=== PATIENT | female | born 1965 | race Caucasian/White ===

== ENCOUNTER → 2016-05-05 | Outpatient (REF) | payer OTHER ==
[~2016-05-05] MED LIST: ATOR40TA PO; CETI10TA PO; COLA50CA3 PO; IBUP200C PO; IBUP200T2 PO; PERCOCET OR; PLAV75TA38 PO; TYLE325T5 PO; VITA200016 PO; augmentin PO; colace OR; colace PO; diflucan PO; flagyl PO; tylenol PO
== END ==
LOC: M SFHCWAGY 13:23
PROVIDERS: ATTEND Nurse Practitioner Family
DX: R35.0 Frequency of micturition (principal)

== ENCOUNTER → 2016-05-26 | Outpatient (CLI) | payer OTHER ==
--- NOTE | 2016-05-26 09:04 | REP ---
Clinical: Right upper quadrant abdominal pain. Technique: Steele scale ultrasound using curved array transducer. Findings: The liver and pancreas are normal in contour, size, and echogenicity without focal hepatic or pancreatic lesions identified. The gallbladder is normal without gallstones, wall thickening or pericholecystic fluid. No biliary ductal dilatation is appreciated. The right kidney is normal in reniform shape without hydronephrosis and measures 10.6 x 5.1 x 4.5 cm with 7 mm and 10 mm simple cortical cysts noted. No ascites. Impression: Normal right upper quadrant and gallbladder abdominal ultrasound. Signed by Mason Gage MD 05/26/2016 08:55 A
== END ==
LOC: M RAD 07:31
PROVIDERS: ATTEND Nurse Practitioner Adult Health
DX: R10.11 Right upper quadrant pain (principal)

== ENCOUNTER → 2016-06-06 | Outpatient (REF) | payer OTHER ==
[2016-06-06 12:11] LABS: BASO % 0.5 % (0.0-1.0); EOS # 0.1 K/mm3 (0.0-0.50); EOS % 0.8 % (0.0-3.0); LARGE UNSTAINED CELL # 0.1 K/mm3 (0.0-0.4); LARGE UNSTAINED CELL % 1.6 % (0.0-4.0); LYMPH # 2.6 K/mm3 (1.5-4.5); MEAN CORPUSCULAR HEMOGLOBIN 30.6 pg (27.0-33.0); MEAN CORPUSCULAR VOLUME 90.2 fl (80.0-96.0); MONO # 0.3 K/mm3 (0.0-0.8); MONO % 4.1 % (0.0-5.0); NEUTROPHILS # 5.1 K/mm3 (1.8-7.7); NEUTROPHILS % 62.1 % (36.0-66.0); PLATELET COUNT, AUTOMATED 276 k/mm3 (150-450); RED CELL DISTRIBUTION WIDTH 12.2 % (11.5-14.5); WHITE BLOOD COUNT 8.2 K/mm3 (4.0-10.0)
[2016-06-06 12:33] LABS: ALBUMIN 3.8 GM/DL (3.2-5.2); ALBUMIN/GLOBULIN RATIO 1.36 (1.00-1.93); ALKALINE PHOSPHATASE 62 U/L (45-117); ALT/SGPT 22 U/L (12-78); ANION GAP 7 MEQ/L (8-16); AST/SGOT 16 U/L (15-37); BILIRUBIN,TOTAL 0.4 MG/DL (0.2-1.0); BLOOD UREA NITROGEN 16 MG/DL (7-18); CALCIUM LEVEL 9.1 MG/DL (8.5-10.1); CARBON DIOXIDE LEVEL 30 MEQ/L (21-32); CHLORIDE LEVEL 106 MEQ/L (98-107); CREATININE FOR GFR 0.64 MG/DL (0.55-1.02); FERRITIN 60 NG/ML (8-252); FREE T4 1.06 NG/DL (0.76-1.46); GLOMERULAR FILTRATION RATE > 60.0 (>51); GLUCOSE, FASTING 87 MG/DL (70-105); PERCENT SATURATION 49.1 % (13.2-37.4); POTASSIUM SERUM 4.6 MEQ/L (3.5-5.1); SODIUM LEVEL 143 MEQ/L (136-145); TOTAL IRON BINDING CAPACITY 293 UG/DL (250-450); TOTAL PROTEIN 6.6 GM/DL (6.4-8.2)
== END ==
LOC: M SFHCPLAZ 08:50
PROVIDERS: ATTEND Family Medicine
DX: E83.119 Hemochromatosis, unspecified (principal); E78.5 Hyperlipidemia, unspecified

== ENCOUNTER 2016-07-30 18:25 | Emergency (ER) | payer OTHER ==
[~2016-07-30] VITALS: Ht 175.3 cm; Wt 88.5 kg
[2016-07-30] MEDS ORDERED: methylPREDNISolone INJ 125 MG/2 ML VIAL (J2930) IV ONE (20:30)
[2016-07-30] MEDS ORDERED: diphenhydrAMINE INJ 50MG/ML VIAL (J1200) IM ONE (20:30)
[2016-07-30] MEDS ORDERED: FAMOTIDINE IV BAG 20 MG in APPROPRIATE DILUENT 1 EA IV ONE (20:30)
[2016-07-30] MEDS ORDERED: IPRATROPIUM 0.5MG/ALBUTEROL 2.5MG INH SOL UD 3ML (DUONEB)(J7620) NEB ONE (20:30)
[2016-07-30] MEDS ORDERED: diphenhydrAMINE INJ 50MG/ML VIAL (J1200) IV STA (20:33)
[2016-07-30 20:34] LABS: BASO % 0.2 % (0.0-1.0); EOS # 0.1 K/mm3 (0.0-0.50); EOS % 0.7 % (0.0-3.0); LARGE UNSTAINED CELL # 0.1 K/mm3 (0.0-0.4); LARGE UNSTAINED CELL % 1.4 % (0.0-4.0); LYMPH % 30.2 % (24.0-44.0); MEAN CORPUSCULAR HEMOGLOBIN 31.4 pg (27.0-33.0); MEAN CORPUSCULAR HGB CONC 33.9 g/dl (32.0-36.5); MEAN CORPUSCULAR VOLUME 92.6 fl (80.0-96.0); MONO # 0.4 K/mm3 (0.0-0.8); MONO % 4.2 % (0.0-5.0); NEUTROPHILS # 6.2 K/mm3 (1.8-7.7); NEUTROPHILS % 63.3 % (36.0-66.0); PLATELET COUNT, AUTOMATED 294 k/mm3 (150-450); RED CELL DISTRIBUTION WIDTH 12.3 % (11.5-14.5); WHITE BLOOD COUNT 9.8 K/mm3 (4.0-10.0)
[2016-07-30 20:45] LABS: ANION GAP 4 MEQ/L (8-16); BLOOD UREA NITROGEN 12 MG/DL (7-18); CALCIUM LEVEL 9.5 MG/DL (8.5-10.1); CARBON DIOXIDE LEVEL 33 MEQ/L (21-32); CHLORIDE LEVEL 104 MEQ/L (98-107); GLOMERULAR FILTRATION RATE > 60.0 (>51); GLUCOSE, FASTING 109 MG/DL (70-105); POTASSIUM SERUM 3.8 MEQ/L (3.5-5.1); SODIUM LEVEL 141 MEQ/L (136-145)
[2016-07-30 21:11] VITALS: BP 129/77
[2016-07-30] MEDS ORDERED: VIST25CA PO (21:48)
[2016-07-30] MEDS ORDERED: EPIP0.3I2 IJ (21:49)
--- NOTE | 2016-07-31 03:40 | REP ---
Clinical: Cough/dyspnea . Comparison: 03/12/2015 . Findings: The mediastinum and cardiac silhouette are stable and within normal limits for portable technique. The lung bassett are clear without acute consolidation, effusion, or pneumothorax. Skeletal structures are intact. Impression: Normal portable chest x-ray Signed by Mason Gage MD 07/31/2016 03:31 A
--- NOTE | 2016-07-31 06:27 | ECGEPIP ---
Stationary ECG Study [facility] [place] - ED Test Date: 2016-07-30 Pat Name: JARROD ELAINE Department: Room: - Gender: F Program Eligibility Specialist: gareth : 1965 Requested By: Clement German Order Number: [id number] Reading MD: Clement Arvizu Measurements Intervals [place] Rate: 78 P: 54 RI: 165 QRS: 36 QRSD: 90 T: 31 QT: 372 QTc: 426 Interpretive Statements SINUS RHYTHM NONSPECIFIC T-WAVE ABNORMALITY SIMILAR TO 03/12/15 Electronically Signed On 07-31-2016 6:26:35 EDT by Clement Arvizu
== END 2016-07-30 22:00 | disposition home or self-care (01) ==
LOC: M ED 19:33
DX: T78.40XA Allergy, unspecified, initial encounter (principal); R06.02 Shortness of breath; Z95.828 Presence of other vascular implants and grafts; R94.31 Abnormal electrocardiogram [ECG] [EKG]; Z79.899 Other long term (current) drug therapy; Z88.2 Allergy status to sulfonamides; Z88.5 Allergy status to narcotic agent; Z91.013 Allergy to seafood

== ENCOUNTER 2016-08-02 10:30 | Emergency (ER) | payer OTHER ==
[~2016-08-02] VITALS: Ht 175.3 cm; Wt 91.6 kg
[~2016-08-02 10:30] MED LIST changes: +EPIP0.3I2 IJ; +VIST25CA PO
[2016-08-02] MEDS ORDERED: PRED20TA PO (10:42)
[2016-08-02] MEDS ORDERED: VIAC8.5C PO (10:42)
[2016-08-02] MEDS ORDERED: RANI150T PO (10:42)
--- NOTE | 2016-08-02 11:32 | REP ---
CT Head without contrast HISTORY: Infarction COMPARISON: 06/30/2015 There is no intraparenchymal hemorrhage, acute infarct, mass or midline shift. The ventricular system is normal in appearance. There is no extra cerebral collection. There is no fracture. The visualized sinuses are clear. IMPRESSION: There is no intracranial lesion. Signed by Sunny Lala MD 08/02/2016 11:23 A
[2016-08-02 11:51] LABS: BASO % 0.1 % (0.0-1.0); EOS % 0.3 % (0.0-3.0); LARGE UNSTAINED CELL # 0.1 K/mm3 (0.0-0.4); LARGE UNSTAINED CELL % 0.6 % (0.0-4.0); LYMPH # 1.6 K/mm3 (1.5-4.5); LYMPH % 13.1 % (24.0-44.0); MEAN CORPUSCULAR HEMOGLOBIN 31.4 pg (27.0-33.0); MEAN CORPUSCULAR HGB CONC 33.9 g/dl (32.0-36.5); MEAN CORPUSCULAR VOLUME 92.6 fl (80.0-96.0); MONO # 0.5 K/mm3 (0.0-0.8); MONO % 4.3 % (0.0-5.0); NEUTROPHILS # 9.7 K/mm3 (1.8-7.7); NEUTROPHILS % 81.6 % (36.0-66.0); PLATELET COUNT, AUTOMATED 269 k/mm3 (150-450); RED CELL DISTRIBUTION WIDTH 12.5 % (11.5-14.5); WHITE BLOOD COUNT 11.9 K/mm3 (4.0-10.0)
[2016-08-02 11:56] LABS: INR 0.94
[2016-08-02] MEDS ORDERED: LORazepam 2 MG/ML VIAL (J2060) IV STA (12:02)
[2016-08-02 12:06] LABS: CONTROL LINE HCG INT CTR LINE PRESENT
[2016-08-02 12:15] LABS: ANION GAP 5 MEQ/L (8-16); BLOOD UREA NITROGEN 19 MG/DL (7-18); CALCIUM LEVEL 8.9 MG/DL (8.5-10.1); CARBON DIOXIDE LEVEL 32 MEQ/L (21-32); CHLORIDE LEVEL 103 MEQ/L (98-107); CREATININE FOR GFR 0.73 MG/DL (0.55-1.02); GLOMERULAR FILTRATION RATE > 60.0 (>51); GLUCOSE, FASTING 98 MG/DL (70-105); MAGNESIUM LEVEL 2.2 MG/DL (1.8-2.4); POTASSIUM SERUM 3.4 MEQ/L (3.5-5.1); SODIUM LEVEL 140 MEQ/L (136-145)
--- NOTE | 2016-08-02 13:15 | REP ---
MR BRAIN WITHOUT CONTRAST: HISTORY: Headache. COMPARISON: CT 06/30/2015. There are no areas of abnormal signal intensity in the brain. There is no intraparenchymal hemorrhage, infarct, mass, or midline shift. The ventricular system is normal in appearance. There is no extracerebral collection. The sinuses are clear. IMPRESSION: There is no intracranial lesion. Signed by Sunny Lala MD 08/02/2016 01:39 P
[2016-08-02] MEDS ORDERED: POTASSIUM CHLORIDE 10 MEQ SR TABLET PO ONE (14:30)
--- NOTE | 2016-08-02 14:46 | ECGEPIP ---
Stationary ECG Study [facility] - ED Test Date: 2016-08-02 Pat Name: JARROD ELAINE Department: Room: - Gender: F Skates Operator: alireza : 1965 Requested By: Akila Vallejo Order Number: [id number] Reading MD: Clement Arvizu Measurements Intervals [place] Rate: 72 P: 54 GA: 158 QRS: 35 QRSD: 80 T: 31 QT: 364 QTc: 400 Interpretive Statements SINUS RHYTHM NSTTW ABNORMALITIES SIMILAR TO 07/30/16 Electronically Signed On 08-02-2016 14:46:13 EDT by Clement Arvizu
[2016-08-02 15:07] VITALS: BP 149/93
--- NOTE | 2016-08-02 15:16 | REP ---
MRA BRAIN WITHOUT CONTRAST: HISTORY: Facial paresthesia. 3D [id number] MR angiography was performed at the level of the [place] of [place]. There is no aneurysm, arteriovenous malformation, or atherosclerotic lesion. Major intracranial vessels are patent. The left vertebral artery is dominant. IMPRESSION: Normal MRA brain. Signed by Sunny Lala MD 08/02/2016 03:17 P
== END 2016-08-02 15:56 | disposition home or self-care (01) ==
LOC: M ED 11:52
DX: R20.9 Unspecified disturbances of skin sensation (principal); E87.6 Hypokalemia; R94.31 Abnormal electrocardiogram [ECG] [EKG]; I78.0 Hereditary hemorrhagic telangiectasia; Z79.899 Other long term (current) drug therapy; Z79.52 Long term (current) use of systemic steroids; Z79.02 Long term (current) use of antithrombotics/antiplatelets; Z88.5 Allergy status to narcotic agent; Z88.2 Allergy status to sulfonamides; Z91.013 Allergy to seafood

== ENCOUNTER → 2016-08-11 | Outpatient (CLI) | payer OTHER ==
[~2016-08-11] MED LIST changes: +PRED20TA PO; +RANI150T PO; +VIAC8.5C PO
--- NOTE | 2016-08-11 09:59 | REP ---
MR angiography of the carotid arteries without IV contrast: History: Left-sided facial numbness. Technique: 2-D [id number] MR angiography is acquired. Source axial images are reviewed. Maximal intensity projection images are generated and viewed rotational about the vertical axis. MR angiographic findings: The common carotid arteries are widely patent. Symmetric widely patent vertebral arteries are seen bilaterally. There is plaquing at the carotid bulbs bilaterally. 60% stenosis is seen at the origin of the right internal carotid artery. Less than 50% narrowing is seen on the left. The distal internal carotid arteries are unremarkable. Impression: 60% narrowing right and 50% or less narrowing left proximal ICA. Signed by Leonardo Hager MD 08/11/2016 10:26 A
== END ==
LOC: M RAD 06:45
PROVIDERS: ATTEND Physician Assistant Medical
DX: I65.23 Occlusion and stenosis of bilateral carotid arteries (principal)

== ENCOUNTER → 2016-08-14 | Outpatient (REF) | payer OTHER ==
[2016-08-14 16:04] LABS: ALBUMIN 3.3 GM/DL (3.2-5.2); ALBUMIN/GLOBULIN RATIO 1.22 (1.00-1.93); ALKALINE PHOSPHATASE 53 U/L (45-117); ALT/SGPT 24 U/L (12-78); ANION GAP 6 MEQ/L (8-16); AST/SGOT 10 U/L (15-37); BILIRUBIN,TOTAL 0.3 MG/DL (0.2-1.0); BLOOD UREA NITROGEN 12 MG/DL (7-18); CALCIUM LEVEL 8.5 MG/DL (8.5-10.1); CARBON DIOXIDE LEVEL 30 MEQ/L (21-32); CHLORIDE LEVEL 104 MEQ/L (98-107); CHOLESTEROL LEVEL 188 MG/DL (<200); CREATININE FOR GFR 0.77 MG/DL (0.55-1.02); FERRITIN 79 NG/ML (8-252); GLOMERULAR FILTRATION RATE > 60.0 (>51); GLUCOSE, FASTING 91 MG/DL (70-105); PERCENT SATURATION 40.1 % (13.2-37.4); POTASSIUM SERUM 4.1 MEQ/L (3.5-5.1); SODIUM LEVEL 140 MEQ/L (136-145); TOTAL IRON BINDING CAPACITY 277 UG/DL (250-450); TRIGLYCERIDES LEVEL 234 MG/DL (<150)
== END ==
LOC: M SFHCPLAZ 12:39
PROVIDERS: ATTEND Family Medicine
DX: E78.5 Hyperlipidemia, unspecified (principal); E83.119 Hemochromatosis, unspecified

== ENCOUNTER → 2016-09-06 | Outpatient (CLI) | payer OTHER ==
--- NOTE | 2016-09-06 13:09 | REPMRS ---
Patient History The patient states she had a clinical breast exam in 08/2016. No known family history of cancer. Benign radio exam breast specimen of the right breast, August 05, 2012. Benign localization of breast nodule of the right breast, August 05, 2012. Digital Woman Screen Mammo: September 06, 2016 - Exam #: [id number] Bilateral CC and MLO view(s) were taken. Technologist: Susi Urban, Technologist Prior study comparison: September 08, 2015, digital woman screen mammo performed at [facility]. August 04, 2014, digital woman screen mammo performed at [facility]. June 13, 2013, digital mammo diagnostic bilateral, performed at [facility]. FINDINGS: The breast tissue is heterogeneously dense. This may lower the sensitivity of mammography. There is a moderate amount of heterogeneously dense fibroglandular tissue which is fairly symmetric. There is no interval development of dominant mass, architectural distortion, or clustered microcalcification typical of malignancy. There has been no change in the appearance of the mammogram from the prior studies. ASSESSMENT: BI-RADS/ACR category 1 mammogram. Negative. Recommendation Routine screening mammogram of both breasts in 1 year (for women over age 40). This mammogram was interpreted with the aid of an FDA-approved computer-aided dectection system. Electronically Signed By: Arnel Hager MD 09/06/16 [id number]
== END ==
LOC: M WHC 09:32
PROVIDERS: ATTEND Nurse Practitioner Family
DX: Z12.31 Encounter for screening mammogram for malignant neoplasm of breast (principal)

== ENCOUNTER → 2016-12-08 | Outpatient (REF) | payer OTHER ==
[~2016-12-08] MED LIST changes: -ATOR40TA PO; +ATOR40TA75 PO; -IBUP200C PO; +IBUP200C10 PO; +PLAV1TAB2 PO; -PLAV75TA38 PO
[2016-12-08 12:06] LABS: ANION GAP 5 MEQ/L (8-16); BLOOD UREA NITROGEN 18 MG/DL (7-18); CARBON DIOXIDE LEVEL 32 MEQ/L (21-32); CHLORIDE LEVEL 104 MEQ/L (98-107); CREATININE FOR GFR 0.64 MG/DL (0.55-1.02); GLOMERULAR FILTRATION RATE > 60.0 (>51); GLUCOSE, FASTING 75 MG/DL (70-105); POTASSIUM SERUM 4.2 MEQ/L (3.5-5.1); SODIUM LEVEL 141 MEQ/L (136-145)
== END ==
LOC: M SFHCPLAZ 11:25
PROVIDERS: ATTEND Physician Assistant Medical
DX: E87.6 Hypokalemia (principal)

== ENCOUNTER → 2017-01-04 | Outpatient (REF) | payer OTHER ==
[2017-01-04 11:58] LABS: BASO # 0.1 10^3/uL (0.0-0.2); BASO % 0.4 % (0.0-1.0); EOS # 0.1 10^3/uL (0.0-0.50); EOS % 0.9 % (0.0-3.0); IMMATURE GRANULOCYTE % 0.6 % (0-0); LYMPH # 1.5 10^3/uL (1.5-4.5); LYMPH % 12.6 % (24.0-44.0); MEAN CORPUSCULAR HEMOGLOBIN 30.8 pg (27.0-33.0); MEAN CORPUSCULAR HGB CONC 33.6 g/dl (32.0-36.5); MEAN CORPUSCULAR VOLUME 91.6 fl (80.0-96.0); MONO # 0.9 10^3/uL (0.0-0.8); MONO % 7.1 % (0.0-5.0); NEUTROPHILS # 9.3 10^3/uL (1.8-7.7); NEUTROPHILS % 78.4 % (36.0-66.0); PLATELET COUNT, AUTOMATED 227 10^3/uL (150-450); RED CELL DISTRIBUTION WIDTH 12.2 % (11.5-14.5); WHITE BLOOD COUNT 11.9 10^3/uL (4.0-10.0)
[2017-01-04 12:47] LABS: ANION GAP 6 MEQ/L (8-16); BLOOD UREA NITROGEN 11 MG/DL (7-18); CALCIUM LEVEL 8.5 MG/DL (8.5-10.1); CARBON DIOXIDE LEVEL 32 MEQ/L (21-32); CHLORIDE LEVEL 103 MEQ/L (98-107); CREATININE FOR GFR 0.55 MG/DL (0.55-1.02); GLOMERULAR FILTRATION RATE > 60.0 (>51); GLUCOSE, FASTING 82 MG/DL (70-105); POTASSIUM SERUM 3.9 MEQ/L (3.5-5.1); SODIUM LEVEL 141 MEQ/L (136-145)
== END ==
LOC: M SFHCPLAZ 09:39
PROVIDERS: ATTEND Physician Assistant Medical
DX: J01.90 Acute sinusitis, unspecified (principal); R05 Cough

== ENCOUNTER → 2017-01-04 | Outpatient (CLI) | payer OTHER ==
--- NOTE | 2017-01-04 10:54 | REP ---
PA and lateral chest: Comparisons are 07/30/2016 and 03/12/2015. The lung bassett are clear. The cardiac size is normal The eunice, mediastinum, and bony thorax are unremarkable. Impression: Negative PA and lateral chest. There are no interval changes. Signed by Robbie Ward MD 01/04/2017 10:46 A
== END ==
LOC: M SMT 10:10
PROVIDERS: ATTEND Physician Assistant Medical
DX: J01.90 Acute sinusitis, unspecified (principal)

== ENCOUNTER → 2017-01-08 | Outpatient (REF) | payer OTHER | LOC: M SFHCPLAZ 11:28 | PROVIDERS: ATTEND Family Medicine | DX: J32.9 Chronic sinusitis, unspecified (principal) ==

== ENCOUNTER → 2017-02-09 | Outpatient (REF) | payer OTHER | LOC: M SFHCPLAZ 11:33 | PROVIDERS: ATTEND Family Medicine | DX: J32.9 Chronic sinusitis, unspecified (principal) ==

== ENCOUNTER 2017-03-20 10:59 | Outpatient (RCR) | payer OTHER | END 2017-04-01 | LOC: M PT 10:59 | DX: Z51.89 Encounter for other specified aftercare (principal); M26.609 Unspecified temporomandibular joint disorder, unspecified side | CPT/HCPCS: 97010 ==

== ENCOUNTER 2017-04-03 10:40 | Outpatient (RCR) | payer OTHER | END 2017-05-02 | LOC: M PT 10:40 | DX: Z51.89 Encounter for other specified aftercare (principal); M26.609 Unspecified temporomandibular joint disorder, unspecified side; M47.22 Other spondylosis with radiculopathy, cervical region | CPT/HCPCS: 97010 ==

== ENCOUNTER 2017-05-03 09:13 | Outpatient (RCR) | payer OTHER | END 2017-05-30 | LOC: M PT 05-10 09:11 | DX: Z51.89 Encounter for other specified aftercare (principal); M26.609 Unspecified temporomandibular joint disorder, unspecified side; M47.22 Other spondylosis with radiculopathy, cervical region | CPT/HCPCS: 97010 ==

== ENCOUNTER 2017-06-01 10:00 | Outpatient (RCR) | payer OTHER | END 2017-06-30 | LOC: M PT 10:00 | DX: Z51.89 Encounter for other specified aftercare (principal); M26.609 Unspecified temporomandibular joint disorder, unspecified side | CPT/HCPCS: 97010 ==

== ENCOUNTER → 2017-07-03 | Outpatient (REF) | payer OTHER ==
[2017-07-03 18:04] LABS: BASO % 0.3 % (0.0-1.0); EOS # 0.1 10^3/uL (0.0-0.50); EOS % 0.7 % (0.0-3.0); HEMATOCRIT 44.1 % (36.0-47.0); HEMOGLOBIN 14.7 g/dl (12.0-15.5); IMMATURE GRANULOCYTE % 0.5 % (0-3.0); LYMPH # 1.7 10^3/uL (1.5-4.5); LYMPH % 15.6 % (24.0-44.0); MEAN CORPUSCULAR HEMOGLOBIN 30.8 pg (27.0-33.0); MEAN CORPUSCULAR HGB CONC 33.3 g/dl (32.0-36.5); MEAN CORPUSCULAR VOLUME 92.3 fl (80.0-96.0); MONO # 0.7 10^3/uL (0.0-0.8); MONO % 6.3 % (0.0-5.0); NEUTROPHILS # 8.5 10^3/uL (1.8-7.7); NEUTROPHILS % 76.6 % (36.0-66.0); PLATELET COUNT, AUTOMATED 272 10^3/uL (150-450); RED BLOOD COUNT 4.78 10^6/uL (4.00-5.40); RED CELL DISTRIBUTION WIDTH 12.4 % (11.5-14.5); WHITE BLOOD COUNT 11.1 10^3/uL (4.0-10.0)
[2017-07-03 18:19] LABS: ALBUMIN 3.8 GM/DL (3.2-5.2); ALBUMIN/GLOBULIN RATIO 1.27 (1.00-1.93); ALKALINE PHOSPHATASE 64 U/L (45-117); ALT/SGPT 25 U/L (12-78); AMYLASE 53 U/L (25-115); ANION GAP 3 MEQ/L (8-16); AST/SGOT 11 U/L (7-37); BILIRUBIN,TOTAL 0.5 MG/DL (0.2-1.0); BLOOD UREA NITROGEN 10 MG/DL (7-18); CALCIUM LEVEL 8.9 MG/DL (8.5-10.1); CARBON DIOXIDE LEVEL 31 MEQ/L (21-32); CHLORIDE LEVEL 106 MEQ/L (98-107); CREATININE FOR GFR 0.61 MG/DL (0.55-1.30); GLOMERULAR FILTRATION RATE > 60.0 (>51); GLUCOSE, FASTING 96 MG/DL (70-100); LIPASE 104 U/L (73-393); POTASSIUM SERUM 4.2 MEQ/L (3.5-5.1); SODIUM LEVEL 140 MEQ/L (136-145); TOTAL PROTEIN 6.8 GM/DL (6.4-8.2)
== END ==
LOC: M SFHCPLAZ 16:14
DX: R10.11 Right upper quadrant pain (principal)
CPT/HCPCS: 83690

== ENCOUNTER → 2017-07-04 | Outpatient (REF) | payer OTHER ==
[2017-07-04 16:08] LABS: APPEARANCE, URINE HAZY (CLEAR); BACTERIA, URINE AUTO NEGATIVE (NEGATIVE); BILIRUBIN, URINE AUTO NEGATIVE (NEGATIVE); BLOOD, URINE BLOOD 3+ (NEGATIVE); COLOR, URINE YELLOW (YELLOW); GLUCOSE, URINE (UA) AUTO NEGATIVE (NEGATIVE); KETONE, URINE AUTO NEGATIVE (NEGATIVE); LEUKOCYTE ESTERASE, URINE AUTO NEGATIVE (NEGATIVE); MUCUS, URINE SMALL (NEGATIVE); NITRITE, URINE AUTO NEGATIVE (NEGATIVE); PROTEIN, URINE AUTO 2+ mg/dL (NEGATIVE); RBC, URINE AUTO 34 /HPF (0-3); SPECIFIC GRAVITY URINE AUTO 1.011 (1.002-1.035); SQUAMOUS EPITHELIAL CELL UR AU 2 /HPF (0-6); UROBILINOGEN, URINE AUTO 0.2 mg/dL (0.0-2.0); WBC, URINE AUTO 1 /HPF (0-3)
== END ==
LOC: M SFHCPLAZ 15:40
DX: R31.29 Other microscopic hematuria (principal)
CPT/HCPCS: 81001

== ENCOUNTER → 2017-07-18 | Outpatient (CLI) | payer OTHER ==
[~2017-07-18] MED LIST changes: -ATOR40TA75 PO; -CETI10TA PO; -COLA50CA3 PO; -EPIP0.3I2 IJ; +GASTROGRAFIN SOLUTION 30ML (Q9963) As Ordered; -IBUP200C10 PO; -IBUP200T2 PO; +ISOVUE-370 76% 100ML VIAL (Q9967) As Ordered; -PERCOCET OR; -PLAV1TAB2 PO; -PRED20TA PO; -RANI150T PO; -TYLE325T5 PO; -VIAC8.5C PO; -VIST25CA PO; -VITA200016 PO; -augmentin PO; -colace OR; -colace PO; -diflucan PO; -flagyl PO; -tylenol PO
== END ==
LOC: M RAD 16:10
DX: R10.11 Right upper quadrant pain (principal)
CPT/HCPCS: Q9963

== ENCOUNTER 2017-07-28 21:41 | Emergency (ER) | payer OTHER ==
[2017-07-28] MEDS: NS 1,000 ML IV (22:53)
[2017-07-28 22:58] LABS: BASO % 0.5 % (0.0-1.0); EOS # 0.2 10^3/uL (0.0-0.50); EOS % 1.7 % (0.0-3.0); HEMATOCRIT 42.6 % (36.0-47.0); HEMOGLOBIN 14.4 g/dl (12.0-15.5); IMMATURE GRANULOCYTE % 0.2 % (0-3.0); LYMPH # 3.6 10^3/uL (1.5-4.5); MEAN CORPUSCULAR HGB CONC 33.8 g/dl (32.0-36.5); MEAN CORPUSCULAR VOLUME 91.8 fl (80.0-96.0); MONO # 0.7 10^3/uL (0.0-0.8); MONO % 7.8 % (0.0-5.0); NEUTROPHILS # 4.3 10^3/uL (1.8-7.7); NEUTROPHILS % 48.8 % (36.0-66.0); PLATELET COUNT, AUTOMATED 257 10^3/uL (150-450); RED BLOOD COUNT 4.64 10^6/uL (4.00-5.40); RED CELL DISTRIBUTION WIDTH 12.5 % (11.5-14.5); WHITE BLOOD COUNT 8.7 10^3/uL (4.0-10.0)
[2017-07-28 23:16] LABS: INR 0.89; PROTHROMBIN TIME 12.1 SECONDS (12.4-14.5)
[2017-07-28 23:24] LABS: C REACTIVE PROTEIN QUANTITATIV 0.42 MG/DL (0.00-0.30)
[2017-07-28 23:25] LABS: ERYTHROCYTE SEDIMENTATION RATE 10 mm/hr (0-30)
[2017-07-28 23:28] LABS: ANION GAP 5 MEQ/L (8-16); BLOOD UREA NITROGEN 17 MG/DL (7-18); CALCIUM LEVEL 9.1 MG/DL (8.5-10.1); CARBON DIOXIDE LEVEL 31 MEQ/L (21-32); CHLORIDE LEVEL 107 MEQ/L (98-107); CK-MB VALUE MASS < 1.0 NG/ML (<3.6); CPK CREATINE PHOSPHOKINASE 128 U/L (26-192); CREATININE FOR GFR 0.67 MG/DL (0.55-1.30); GLOMERULAR FILTRATION RATE > 60.0 (>51); GLUCOSE, FASTING 98 MG/DL (70-100); MB/CK RELATIVE INDEX 0.78 (< OR =4); POTASSIUM SERUM 3.7 MEQ/L (3.5-5.1); SODIUM LEVEL 143 MEQ/L (136-145); TROPONIN I < 0.02 NG/ML (< 0.10)
== END 2017-07-29 00:03 | disposition home or self-care (01) ==
LOC: M ED 07-29 00:03
DX: R51 Headache (principal); M51.9 Unspecified thoracic, thoracolumbar and lumbosacral intervertebral disc disorder; K21.9 Gastro-esophageal reflux disease without esophagitis; Z88.5 Allergy status to narcotic agent; Z88.1 Allergy status to other antibiotic agents; Z88.2 Allergy status to sulfonamides; Z91.013 Allergy to seafood; Z79.899 Other long term (current) drug therapy
CPT/HCPCS: 70450

== ENCOUNTER → 2017-08-24 | Outpatient (REF) | payer OTHER ==
[2017-08-24 12:27] LABS: BASO % 0.3 % (0.0-1.0); EOS # 0.1 10^3/uL (0.0-0.50); EOS % 0.7 % (0.0-3.0); HEMATOCRIT 43.2 % (36.0-47.0); HEMOGLOBIN 14.4 g/dl (12.0-15.5); IMMATURE GRANULOCYTE % 0.4 % (0-3.0); LYMPH # 2.2 10^3/uL (1.5-4.5); LYMPH % 32.4 % (24.0-44.0); MEAN CORPUSCULAR HEMOGLOBIN 30.8 pg (27.0-33.0); MEAN CORPUSCULAR HGB CONC 33.3 g/dl (32.0-36.5); MEAN CORPUSCULAR VOLUME 92.5 fl (80.0-96.0); MONO # 0.5 10^3/uL (0.0-0.8); MONO % 6.7 % (0.0-5.0); NEUTROPHILS % 59.5 % (36.0-66.0); PLATELET COUNT, AUTOMATED 251 10^3/uL (150-450); RED BLOOD COUNT 4.67 10^6/uL (4.00-5.40); RED CELL DISTRIBUTION WIDTH 12.3 % (11.5-14.5); WHITE BLOOD COUNT 6.7 10^3/uL (4.0-10.0)
[2017-08-24 12:58] LABS: PTH INTACT 37.1 PG/ML (18.5-88.0); TOTAL 25(OH) VITAMIN D 61.2 NG/ML (30.0-100.0)
[2017-08-24 13:05] LABS: ALBUMIN 3.8 GM/DL (3.2-5.2); ALBUMIN/GLOBULIN RATIO 1.27 (1.00-1.93); ALKALINE PHOSPHATASE 55 U/L (45-117); ALT/SGPT 21 U/L (12-78); ANION GAP 9 MEQ/L (8-16); AST/SGOT 14 U/L (7-37); BILIRUBIN,TOTAL 0.5 MG/DL (0.2-1.0); BLOOD UREA NITROGEN 15 MG/DL (7-18); CALCIUM LEVEL 8.9 MG/DL (8.5-10.1); CARBON DIOXIDE LEVEL 27 MEQ/L (21-32); CHLORIDE LEVEL 105 MEQ/L (98-107); CREATININE FOR GFR 0.65 MG/DL (0.55-1.30); FERRITIN 85 NG/ML (8-252); GLOMERULAR FILTRATION RATE > 60.0 (>51); GLUCOSE, FASTING 71 MG/DL (70-100); IRON (FE) 141 UG/DL (50-170); PERCENT SATURATION 51.6 % (13.2-45.0); POTASSIUM SERUM 4.2 MEQ/L (3.5-5.1); SODIUM LEVEL 141 MEQ/L (136-145); TOTAL IRON BINDING CAPACITY 273 UG/DL (250-450); TOTAL PROTEIN 6.8 GM/DL (6.4-8.2)
[2017-08-24 13:21] LABS: ESTIMATED AVERAGE GLUCOSE 97 MG/DL (60-110)
[2017-08-25 14:10] LABS: INSULIN LEVEL 10.3 uIU/mL (2.6-24.9)
== END ==
LOC: M SFHCPLAZ 08:25
DX: E55.9 Vitamin D deficiency, unspecified (principal); E83.119 Hemochromatosis, unspecified; E66.3 Overweight

== ENCOUNTER → 2017-08-28 | Outpatient (CLI) | payer OTHER ==
[~2017-08-28] MED LIST changes: +E-Z-GAS II EFFERVESCENT PACKET (SODIUM BICARB./CITRIC ACID/SIMETHICONE) As Ordered; +E-Z-HD 98% w/w 340GM SUSP BTL As Ordered; +E-Z-PAQUE 96% w/w SUSP 176GM BTL As Ordered; -GASTROGRAFIN SOLUTION 30ML (Q9963) As Ordered; -ISOVUE-370 76% 100ML VIAL (Q9967) As Ordered
== END ==
LOC: M RAD 08:34
DX: R10.84 Generalized abdominal pain (principal)
CPT/HCPCS: 74245

== ENCOUNTER → 2017-09-13 | Outpatient (CLI) | payer OTHER | LOC: M WHC 09:53 | DX: R10.31 Right lower quadrant pain (principal) ==

== ENCOUNTER → 2017-10-08 | Outpatient (CLI) | payer OTHER | LOC: M RAD 15:27 | DX: G43.119 Migraine with aura, intractable, without status migrainosus (principal) | CPT/HCPCS: 70450 ==

== ENCOUNTER → 2017-11-16 | Outpatient (REF) | payer OTHER | LOC: M SFHCWAGY 11:46 | DX: R30.0 Dysuria (principal) ==

== ENCOUNTER → 2017-12-26 | Outpatient (REF) | payer OTHER ==
[2017-12-26 10:07] LABS: BASO % 0.4 % (0.0-1.0); EOS # 0.1 10^3/uL (0.0-0.50); EOS % 0.8 % (0.0-3.0); HEMATOCRIT 44.1 % (36.0-47.0); HEMOGLOBIN 15.2 g/dl (12.0-15.5); IMMATURE GRANULOCYTE % 0.3 % (0-3.0); LYMPH # 2.5 10^3/uL (1.5-4.5); LYMPH % 32.6 % (24.0-44.0); MEAN CORPUSCULAR HEMOGLOBIN 31.2 pg (27.0-33.0); MEAN CORPUSCULAR HGB CONC 34.5 g/dl (32.0-36.5); MEAN CORPUSCULAR VOLUME 90.6 fl (80.0-96.0); MONO # 0.5 10^3/uL (0.0-0.8); MONO % 6.9 % (0.0-5.0); NEUTROPHILS # 4.5 10^3/uL (1.8-7.7); PLATELET COUNT, AUTOMATED 253 10^3/uL (150-450); RED BLOOD COUNT 4.87 10^6/uL (4.00-5.40); RED CELL DISTRIBUTION WIDTH 12.2 % (11.5-14.5); WHITE BLOOD COUNT 7.6 10^3/uL (4.0-10.0)
[2017-12-26 11:51] LABS: C REACTIVE PROTEIN QUANTITATIV < 0.30 MG/DL (0.00-0.30); CHOLESTEROL LEVEL 163 MG/DL (<200); CHOLESTEROL RISK RATIO 3.975 (<5); CPK CREATINE PHOSPHOKINASE 48 U/L (26-192); FERRITIN 73 NG/ML (8-252); FREE T4 1.01 NG/DL (0.76-1.46); HDL CHOLESTEROL 41 MG/DL (>40); IRON (FE) 119 UG/DL (50-170); LDL CHOLESTEROL 83 MG/DL (<100); NON-HDL-C 122 MG/DL; PERCENT SATURATION 45.1 % (13.2-45.0); TOTAL IRON BINDING CAPACITY 264 UG/DL (250-450); TRIGLYCERIDES LEVEL 193 MG/DL (<150)
== END ==
LOC: M SFHCPLAZ 08:21
DX: E83.119 Hemochromatosis, unspecified (principal); E78.5 Hyperlipidemia, unspecified

== ENCOUNTER → 2018-01-11 | Outpatient (CLI) | payer OTHER | LOC: M RAD 07:55 | DX: E83.119 Hemochromatosis, unspecified (principal); I77.9 Disorder of arteries and arterioles, unspecified | CPT/HCPCS: 76705 ==

== ENCOUNTER → 2018-04-26 | Outpatient (REF) | payer OTHER ==
[~2018-04-26] MED LIST changes: +ATOR40TA75 PO; +CETI10TA PO; +COLA50CA3 PO; -E-Z-GAS II EFFERVESCENT PACKET (SODIUM BICARB./CITRIC ACID/SIMETHICONE) As Ordered; -E-Z-HD 98% w/w 340GM SUSP BTL As Ordered; -E-Z-PAQUE 96% w/w SUSP 176GM BTL As Ordered; +EPIP0.3I2 IJ; +IBUP200C25 PO; +IBUP200T2 PO; +PERCOCET OR; +PLAV1TAB2 PO; +PRED20TA PO; +RANI150T PO; +TYLE325T5 PO; +VIAC8.5C PO; +VIST25CA PO; +VITA200016 PO; +augmentin PO; +colace OR; +colace PO; +diflucan PO; +flagyl PO; +gas x PO; +tylenol PO
[2018-04-26 11:21] LABS: AMORPHOUS SEDIMENT SMALL (NEGATIVE); APPEARANCE, URINE HAZY (CLEAR); BACTERIA, URINE AUTO 2+ (NEGATIVE); BILIRUBIN, URINE AUTO NEGATIVE (NEGATIVE); BLOOD, URINE BLOOD 3+ (NEGATIVE); CALCIUM OXALATE CRYSTALS SMALL; COLOR, URINE AMBER (YELLOW); GLUCOSE, URINE (UA) AUTO NEGATIVE (NEGATIVE); KETONE, URINE AUTO NEGATIVE (NEGATIVE); LEUKOCYTE ESTERASE, URINE AUTO 1+ (NEGATIVE); MUCUS, URINE SMALL (NEGATIVE); NITRITE, URINE AUTO POSITIVE (NEGATIVE); PROTEIN, URINE AUTO 2+ mg/dL (NEGATIVE); RBC, URINE AUTO 129 /HPF (0-3); SPECIFIC GRAVITY URINE AUTO 1.023 (1.002-1.035); SQUAMOUS EPITHELIAL CELL UR AU 2 /HPF (0-6); WBC, URINE AUTO TNTC /HPF (0-3)
[2018-04-26 11:57] LABS: ALBUMIN 3.7 GM/DL (3.2-5.2); ALT/SGPT 23 U/L (12-78); BILIRUBIN,TOTAL 0.5 MG/DL (0.2-1.0); BLOOD UREA NITROGEN 13 MG/DL (7-18); CALCIUM LEVEL 9.1 MG/DL (8.5-10.1); CARBON DIOXIDE LEVEL 28 MEQ/L (21-32); CHLORIDE LEVEL 105 MEQ/L (98-107); CREATININE FOR GFR 0.72 MG/DL (0.55-1.30); GLOMERULAR FILTRATION RATE > 60.0 (>51); GLUCOSE, FASTING 79 MG/DL (70-100); POTASSIUM SERUM 4.1 MEQ/L (3.5-5.1); SODIUM LEVEL 142 MEQ/L (136-145); TOTAL PROTEIN 6.6 GM/DL (6.4-8.2)
[2018-04-26 12:05] LABS: TOTAL 25(OH) VITAMIN D 61.1 NG/ML (30.0-100.0)
[2018-04-26 12:06] LABS: PTH INTACT 45.5 PG/ML (18.5-88.0)
[2018-04-26 12:09] LABS: HEMOGLOBIN A1c 5.5 %
[2018-04-26 12:12] LABS: MAU/CREAT RATIO 161.6 MCG/MG (0.0-30.0)
== END ==
LOC: M SFHCPLAZ 08:36
PROVIDERS: ATTEND Family Medicine
DX: E55.9 Vitamin D deficiency, unspecified (principal); R73.01 Impaired fasting glucose

== ENCOUNTER → 2018-04-30 | Outpatient (REF) | payer OTHER | LOC: M SFHCPLAZ 11:30 | PROVIDERS: ATTEND Physician Assistant Medical | DX: R30.0 Dysuria (principal) ==

== ENCOUNTER → 2018-04-30 | Outpatient (CLI) | payer OTHER ==
--- NOTE | 2018-04-30 10:55 | REP ---
Clinical: Microhematuria. Technique: Axial contrast enhanced images from the lung bases to the pubic symphysis with coronal and sagittal re-formations. Comparison: 07/18/2017. Findings: The evaluation of the urinary tract system demonstrates a right renal arterial stent at the renal hilum which appears stable as compared to prior examination. Left kidney includes 3.5 cm renal cyst unchanged from prior examination. No evidence for nephroureterolithiasis, hydroureteronephrosis or perinephric stranding. Liver, pancreas, gallbladder, and bilateral adrenal glands are normal. Spleen demonstrates 1.5 cm hypodensities which remain stable and likely represents cyst. The enteric system is without obstruction or acute inflammatory process scattered colonic and sigmoid diverticula noted without acute diverticulitis. Pelvis demonstrates normal bladder and evidence for prior hysterectomy. No ascites. No adenopathy. No free air. Abdominal aorta without aneurysm. 2 cm fat containing periumbilical hernia identified. Musculoskeletal structures demonstrate age-related degenerative changes without focal osseous abnormality. Lung bases are clear. Impression: 1. Stable appearance to the right renal arterial stent at the renal hilum. Stable 3.5 cm left renal cyst. No evidence for hydronephrosis, nephroureterolithiasis or perinephric stranding. 2. 1.5 cm splenic hypodensity remains stable and likely cyst. 3. Scattered diverticula without acute diverticulitis. 4. 2 cm fat containing periumbilical hernia. 5. Prior hysterectomy. Electronically Signed by Mason Gage MD 04/30/2018 10:46 A
== END ==
LOC: M RAD 10:16
PROVIDERS: ATTEND Physician Assistant Medical
DX: R31.29 Other microscopic hematuria (principal); N28.1 Cyst of kidney, acquired; K57.30 Diverticulosis of large intestine without perforation or abscess without bleeding; K42.9 Umbilical hernia without obstruction or gangrene

== ENCOUNTER → 2018-05-06 | Outpatient (REF) | payer OTHER ==
[2018-05-06 15:50] LABS: APPEARANCE, URINE CLEAR (CLEAR); BACTERIA, URINE AUTO NEGATIVE (NEGATIVE); BILIRUBIN, URINE AUTO NEGATIVE (NEGATIVE); BLOOD, URINE BLOOD 2+ (NEGATIVE); COLOR, URINE YELLOW (YELLOW); GLUCOSE, URINE (UA) AUTO NEGATIVE (NEGATIVE); KETONE, URINE AUTO NEGATIVE (NEGATIVE); LEUKOCYTE ESTERASE, URINE AUTO NEGATIVE (NEGATIVE); MUCUS, URINE SMALL (NEGATIVE); NITRITE, URINE AUTO NEGATIVE (NEGATIVE); PROTEIN, URINE AUTO 2+ mg/dL (NEGATIVE); RBC, URINE AUTO 28 /HPF (0-3); SPECIFIC GRAVITY URINE AUTO 1.016 (1.002-1.035); SQUAMOUS EPITHELIAL CELL UR AU 1 /HPF (0-6); UROBILINOGEN, URINE AUTO 0.2 mg/dL (0.0-2.0); WBC, URINE AUTO 1 /HPF (0-3)
== END ==
LOC: M SFHCPLAZ 14:27
PROVIDERS: ATTEND Family Medicine
DX: N39.0 Urinary tract infection, site not specified (principal)

== ENCOUNTER → 2018-05-13 | Outpatient (CLI) | payer OTHER ==
--- NOTE | 2018-05-13 13:28 | REP ---
RIGHT UPPER QUADRANT ULTRASOUND: Real-time sonographic evaluation of the right upper quadrant is performed. Gallbladder demonstrates no evidence of intraluminal sludge or calculi, wall thickening or pericholecystic fluid. There is no intrahepatic or extrahepatic biliary dilatation, common bile duct measuring 4 mm. The liver demonstrates diffuse mild increased echotexture, compatible with mild diffuse fibrofatty infiltration. No liver or pancreatic mass is seen. Right kidney demonstrates no hydronephrosis with normal size 10.3 cm in length. There is a cyst laterally in the right kidney 1.6 cm in diameter. IMPRESSION: Diffuse fibrofatty infiltration of the liver, small right renal cyst 1.6 cm in diameter. Electronically Signed by Robbie Steele MD 05/13/2018 11:39 P
== END ==
LOC: M RAD 08:27
PROVIDERS: ATTEND Family Medicine
DX: E83.119 Hemochromatosis, unspecified (principal); N28.1 Cyst of kidney, acquired; K76.0 Fatty (change of) liver, not elsewhere classified

== ENCOUNTER → 2018-05-15 | Outpatient (REF) | payer OTHER ==
[2018-05-15 15:46] LABS: APPEARANCE, URINE CLEAR (CLEAR); BACTERIA, URINE AUTO NEGATIVE (NEGATIVE); BILIRUBIN, URINE AUTO NEGATIVE (NEGATIVE); BLOOD, URINE BLOOD 2+ (NEGATIVE); COLOR, URINE STRAW (YELLOW); GLUCOSE, URINE (UA) AUTO NEGATIVE (NEGATIVE); KETONE, URINE AUTO NEGATIVE (NEGATIVE); LEUKOCYTE ESTERASE, URINE AUTO NEGATIVE (NEGATIVE); NITRITE, URINE AUTO NEGATIVE (NEGATIVE); PROTEIN, URINE AUTO NEGATIVE (NEGATIVE); RBC, URINE AUTO 5 /HPF (0-3); SPECIFIC GRAVITY URINE AUTO 1.003 (1.002-1.035); SQUAMOUS EPITHELIAL CELL UR AU 0 /HPF (0-6); UROBILINOGEN, URINE AUTO 0.2 mg/dL (0.0-2.0); WBC, URINE AUTO 1 /HPF (0-3)
== END ==
LOC: M SFHCPLAZ 15:25
PROVIDERS: ATTEND Nurse Practitioner Family
DX: N39.0 Urinary tract infection, site not specified (principal)

== ENCOUNTER 2018-08-30 02:16 | Inpatient (IN) | payer OTHER ==
[~2018-08-30] VITALS: Ht 172.7 cm; Wt 87.0 kg
[~2018-08-30 02:16] MED LIST changes: +OXYC1TAB23 OR; -PERCOCET OR
[2018-08-30] MEDS ORDERED: MORPHINE 4 MG/ML 1ML VIAL/SYRINGE (J2270) IV ONE (03:45)
[2018-08-30] MEDS ORDERED: NS 1,000 ML IV ONE ×2 (03:45→06:45)
[2018-08-30] MEDS ORDERED: METOCLOPRAMIDE INJ 10MG/2ML VIAL (J2765) IV ONE (03:45)
[2018-08-30] MEDS: GASTROGRAFIN SOLUTION 30ML PO SCH ×2 (04:02→04:24)
[2018-08-30 04:18] LABS: BASO % 0.2 % (0.0-1.0); EOS % 0.1 % (0.0-3.0); HEMATOCRIT 44.3 % (36.0-47.0); HEMOGLOBIN 14.9 g/dl (12.0-15.5); LYMPH # 1.4 10^3/uL (1.5-4.5); LYMPH % 9.7 % (24.0-44.0); MEAN CORPUSCULAR HEMOGLOBIN 31.1 pg (27.0-33.0); MEAN CORPUSCULAR HGB CONC 33.6 g/dl (32.0-36.5); MEAN CORPUSCULAR VOLUME 92.5 fl (80.0-96.0); NEUTROPHILS # 11.6 10^3/uL (1.8-7.7); NEUTROPHILS % 82.7 % (36.0-66.0); PLATELET COUNT, AUTOMATED 223 10^3/uL (150-450); RED BLOOD COUNT 4.79 10^6/uL (4.00-5.40); WHITE BLOOD COUNT 14.1 10^3/uL (4.0-10.0)
[2018-08-30 04:27] LABS: ALBUMIN 3.4 GM/DL (3.2-5.2); ALT/SGPT 21 U/L (12-78); BILIRUBIN,DIRECT 0.1 MG/DL (0.0-0.2); BILIRUBIN,TOTAL 0.6 MG/DL (0.2-1.0); BLOOD UREA NITROGEN 13 MG/DL (7-18); CALCIUM LEVEL 8.8 MG/DL (8.5-10.1); CARBON DIOXIDE LEVEL 29 MEQ/L (21-32); CHLORIDE LEVEL 107 MEQ/L (98-107); CREATININE FOR GFR 0.65 MG/DL (0.55-1.30); GLOMERULAR FILTRATION RATE > 60.0 (>51); GLUCOSE, FASTING 112 MG/DL (70-100); LIPASE 99 U/L (73-393); POTASSIUM SERUM 4.2 MEQ/L (3.5-5.1); SODIUM LEVEL 142 MEQ/L (136-145); TOTAL PROTEIN 6.7 GM/DL (6.4-8.2)
[2018-08-30 04:40] LABS: INR 0.93; PARTIAL THROMBOPLASTIN TIME 34.5 SECONDS (25.4-37.6); PROTHROMBIN TIME 12.6 SECONDS (12.1-14.4)
[2018-08-30] MEDS ORDERED: ISOVUE-370 76% 100ML VIAL (Q9967) As Ordered ONE (05:12)
--- NOTE | 2018-08-30 06:40 | REPVR ---
EXAM: CT Abdomen and Pelvis With Contrast EXAM DATE/TIME: 08/30/2018 3:33 AM CLINICAL HISTORY: 52 years old, female; Abdominal pain; Localized; Left lower quadrant (llq); Additional info: Llq pain TECHNIQUE: Imaging protocol: Axial computed tomography images of the abdomen and pelvis with intravenous contrast. Coronal and sagittal reformatted images were created and reviewed. Radiation optimization: All CT scans at this facility use at least one of these dose optimization techniques: automated exposure control; mA and/or kV adjustment per patient size (includes targeted exams where dose is matched to clinical indication); or iterative reconstruction. Contrast material: ISO; Contrast volume: 100 ml; Contrast route: AC; COMPARISON: CT ABD PELVIS W/O CONTRAST 04/30/2018 10:29 AM FINDINGS: Lungs: Minimal bilateral lower lobe dependent atelectasis. ABDOMEN: Liver: The liver attenuation is 100 Hounsfield units and the spleen is 138 Hounsfield units. Gallbladder and bile ducts: Normal. No calcified stones. No ductal dilation. Pancreas: Normal. No ductal dilation. Spleen: Splenic cyst posteriorly measuring 16 mm. Adrenals: Normal. No mass. Kidneys and ureters: There are bilateral renal cysts measuring up to 3.2 cm on the left. Right renal artery vascular stent extending into the right renal hilum. Stomach and bowel: Colonic diverticulosis with mild segmental wall thickening of the proximal sigmoid with pericolonic induration which is new since the prior study consistent with mild diverticulitis. There is some thickening of the left pelvic retroperitoneal fascia along the left lateral pelvic sidewall. Appendix: The appendix measures 7 mm in diameter with fluid filled lumen and is slightly increased since a prior study. There is slight periappendiceal induration. PELVIS: Bladder: Unremarkable as visualized. Reproductive: Status post hysterectomy. ABDOMEN and PELVIS: Intraperitoneal space: Normal. No free air. No significant fluid collection. Bones/joints: No acute fracture. No dislocation. Soft tissues: Minimal fat filled umbilical hernia. Vasculature: Incidental note of an accessory retroaortic left renal vein. Lymph nodes: Normal. No enlarged lymph nodes. IMPRESSION: 1. Minimal colonic diverticulosis with mild diverticulitis of the proximal sigmoid which is new since 04/30/2018. 2. Borderline size of the appendix measuring 7 mm with fluid filled lumen and question of slight surrounding induration and is very slightly increased in size since the prior study. Borderline or early appendicitis is not excluded. 3. Mild fatty infiltration of the liver. 4. Status post hysterectomy. Electronically signed by: Chris Mckenna On 08/30/2018 06:40:44 AM
[2018-08-30] MEDS ORDERED: CIPROFLOXACIN 400 MG in APPROPRIATE DILUENT 1 EA IV ONE (06:45)
[2018-08-30] MEDS ORDERED: metroNIDAZOLE 750 MG in APPROPRIATE DILUENT 1 EA IV ONE (06:45)
[2018-08-30 07:07] LABS: APPEARANCE, URINE CLEAR (CLEAR); BACTERIA, URINE AUTO NEGATIVE (NEGATIVE); BILIRUBIN, URINE AUTO NEGATIVE (NEGATIVE); BLOOD, URINE BLOOD 3+ (NEGATIVE); COLOR, URINE STRAW (YELLOW); GLUCOSE, URINE (UA) AUTO NEGATIVE (NEGATIVE); KETONE, URINE AUTO NEGATIVE (NEGATIVE); LEUKOCYTE ESTERASE, URINE AUTO NEGATIVE (NEGATIVE); NITRITE, URINE AUTO NEGATIVE (NEGATIVE); PROTEIN, URINE AUTO 1+ mg/dL (NEGATIVE); RBC, URINE AUTO 56 /HPF (0-3); SQUAMOUS EPITHELIAL CELL UR AU 0 /HPF (0-6); UROBILINOGEN, URINE AUTO 0.2 mg/dL (0.0-2.0); WBC, URINE AUTO 0 /HPF (0-3)
[2018-08-30] MEDS ORDERED: DRIS50003 PO (07:19)
[2018-08-30] MEDS ORDERED: EPIP0.3I2 IM (07:19)
[2018-08-30] MEDS ORDERED: MIRA3350 PO (07:20)
[2018-08-30] MEDS ORDERED: ACET-683 PO (07:20)
[2018-08-30] MEDS: ASPIRIN 81 MG ENTERIC TAB PO SCH (09:00)
[2018-08-30] MEDS: CETIRIZINE (ZyrTEC) 10 MG TAB PO SCH (09:00)
[2018-08-30 09:10] LABS: SPECIFIC GRAVITY URINE AUTO >1.060 (1.002-1.035)
[2018-08-30 09:55] VITALS: BP 117/74
[2018-08-30] MEDS: ENOXAPARIN 40 MG/0.4 ML SYRINGE (J1650) SC SCH (10:15)
[2018-08-30] MEDS: CLOPIDOGREL 75 MG TAB PO SCH (11:51)
[2018-08-30] MEDS: ONDANSETRON 4 MG TAB (S0181) PO PRN ×2 (13:00→19:59)
[2018-08-30 14:00] VITALS: BP 127/63
[2018-08-30] MEDS: ACETAMINOPHEN TAB 650MG DOSE (2X325MG) PO PRN ×3 (14:19→22:28)
--- NOTE | 2018-08-30 14:44 | HPE ---
DATE OF ADMISSION: 08/30/2018 CHIEF COMPLAINT: Abdominal pain. HISTORY: The patient has a 3-4 day history of abdominal discomfort, primarily lower, slightly to the left side. She had some vomiting and a fever developed overnight, came to ED for evaluation. No previous history of diverticulitis. No history of appendicitis. 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 Covarrubias, history of migraines since she was in her teen years, bilateral carotid artery disease with 60% stenosis on the right 50% on the left. cervical degenerative joint disease. PAST SURGERIES: Include: Laparoscopy for endometriosis by Dr. Neville in 2003. Cystourethroscopy with Dr. Miramontes in 2005. Lumpectomy right breast with fibrocytic change Dr. Christianson 2012. Search for possible bowel perforation 2012 after paratubal cystectomy, cystoscopy, suspected perforated viscus at that point. Colonoscopy with polypectomy in 2015. FAMILY HISTORY: Remarkable for hypertension and diabetes in father and myocardial infarction in his late 50s. Mother with colonic polyps, osteoporosis. Daughter with history of AVMs, recurrent. SOCIAL HISTORY: Nonsmoker. Seldom drinks, does occasionally have a glass of wine, not daily. 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 She does cardiovascular and weight resistance exercises 4-5 times per week. ALLERGIES: 1. Reports allergy to shrimp. 2. TRAMADOL. 3. SULFONAMIDES. 4. Nausea and vomiting with FENTANYL. REVIEW OF SYSTEMS: No headache, dizziness, change in vision. No trouble swallowing. No cough, dyspnea, wheezing or pleuritic pain. No dysuria or frequency. No joint pains. No swelling. No range of motion limitations. No known hypermobility. No skin rashes. No fainting, loss of consciousness or seizure disorders. No numbness, tingling or weakness. EXAMINATION: VITAL SIGNS: 120/69, pulse 90 and regular, respiratory rate 18, O2 sat 94% on room air. She had no fever 98.9 temperature most recently measured. GENERAL: On exam, she is alert, pleasant, oriented, cooperative. HEENT: Pupils equal. Full extraocular movements. No oral lesions are noted. NECK: There is no neck masses. There is a prominent cervical fat pad at the level of the thyroid however. HEART: Regular rate and rhythm, no murmurs. No displacement of PMI. ABDOMEN: Soft. There is no guarding, but she is tender in the suprapubic area, tender in the left lower quadrant and somewhat tender in the right lower quadrant. There is positive pelvic shake tenderness. Bowel sounds are present but somewhat hypoactive. EXTREMITIES: Show no edema or deformities. SKIN: No rashes. No petechia. No bruising. NEURO: She is alert, oriented, pleasant, cooperative. Moves all extremities without apparent deficit. Gait was not tested. LABORATORY DATA: Include CBC which shows elevated white count 14,100. She has 82.7% neutrophils, 0.1% eosinophils. Hemoglobin 14.9. Chemistries glucose 112, anion gap of 6, otherwise normal. Lipase 99. LFTs normal. Urine was showing 1+ urinary protein, 3+ blood and 56 red cells per high-power field. She does have a past medical history that includes microhematuria. CT scan was done of the abdomen and pelvis mentions bilateral renal cysts measuring up to 3.2 cm, biggest on the left. Right renal artery vascular stent is noted extending into the right renal hilum. There is pericolonic induration segmental wall thickening of the proximal sigmoid which is new consistent with diverticulitis, some thickening of the left pelvic retroperitoneal fascia. The appendix to 7 mm in diameter with fluid filled lumen and seems to be slightly increased with some, per radiology, slight periappendiceal induration, and she is status post hysterectomy. Mild fatty infiltration is also demonstrated on the CT according to the radiologist. ASSESSMENT: 1. Findings on CT scan and symptoms compatible with diverticulitis. The changes in the right appendix are somewhat worrisome and she does have right lower quadrant tenderness. She has seen Dr. Acosta in the past and will see if he can provide general surgery opinion regarding the nature of the appendiceal finding and hopefully will agree that medical treatment at this point is appropriate. 2. Chronic diagnoses as listed above. Not currently active. 3. She is on antiplatelet regimen because of stent, which would complicate any potential for surgery. PLAN: Dr. Acosta will be asked to see her in consultation. Will continue Cipro 400 IV twice a day, metronidazole 500 IV every 8 hours, Zofran by mouth as needed for nausea, can change to IV if she is not able tolerate. Continue her Plavix. DVT prophylaxis is not thought to be adequately provided by Plavix alone, and therefore will add Lovenox. Continue her aspirin since she is on dual platelet therapy currently, anticipating that she will not require surgery, if Dr. Acosta suspects surgery might be needed then we will need to hold her antiplatelet regimen until we have clear evidence of her response to therapy.
[2018-08-30] MEDS: metroNIDAZOLE 500 MG in APPROPRIATE DILUENT 1 EA IV SCH (16:49)
[2018-08-30] MEDS: CIPROFLOXACIN 400 MG in APPROPRIATE DILUENT 1 EA IV SCH (20:00)
[2018-08-30 22:00] VITALS: BP 128/74
[2018-08-30] MEDS: ATORVASTATIN 20 MG TAB PO SCH (22:28)
[2018-08-31] MEDS: metroNIDAZOLE 500 MG in APPROPRIATE DILUENT 1 EA IV SCH ×3 (01:26→17:36)
[2018-08-31] MEDS: ACETAMINOPHEN TAB 650MG DOSE (2X325MG) PO PRN ×2 (04:03→08:28)
[2018-08-31 05:55] LABS: HEMATOCRIT 39.8 % (36.0-47.0); HEMOGLOBIN 13.5 g/dl (12.0-15.5); MEAN CORPUSCULAR HEMOGLOBIN 31.8 pg (27.0-33.0); MEAN CORPUSCULAR HGB CONC 33.9 g/dl (32.0-36.5); MEAN CORPUSCULAR VOLUME 93.6 fl (80.0-96.0); PLATELET COUNT, AUTOMATED 194 10^3/uL (150-450); RED BLOOD COUNT 4.25 10^6/uL (4.00-5.40); WHITE BLOOD COUNT 10.3 10^3/uL (4.0-10.0)
[2018-08-31 06:00] VITALS: BP 120/73
[2018-08-31 06:22] LABS: ALBUMIN 2.8 GM/DL (3.2-5.2); ALT/SGPT 16 U/L (12-78); BILIRUBIN,TOTAL 0.6 MG/DL (0.2-1.0); BLOOD UREA NITROGEN 9 MG/DL (7-18); CALCIUM LEVEL 8.5 MG/DL (8.5-10.1); CARBON DIOXIDE LEVEL 30 MEQ/L (21-32); CHLORIDE LEVEL 107 MEQ/L (98-107); CREATININE FOR GFR 0.58 MG/DL (0.55-1.30); GLOMERULAR FILTRATION RATE > 60.0 (>51); GLUCOSE, FASTING 92 MG/DL (70-100); POTASSIUM SERUM 3.5 MEQ/L (3.5-5.1); SODIUM LEVEL 141 MEQ/L (136-145); TOTAL PROTEIN 6.5 GM/DL (6.4-8.2)
[2018-08-31] MEDS: CIPROFLOXACIN 400 MG in APPROPRIATE DILUENT 1 EA IV SCH ×2 (08:23→20:27)
[2018-08-31] MEDS: CLOPIDOGREL 75 MG TAB PO SCH (08:24)
[2018-08-31] MEDS: ASPIRIN 81 MG ENTERIC TAB PO SCH (08:24)
[2018-08-31] MEDS: CETIRIZINE (ZyrTEC) 10 MG TAB PO SCH (08:24)
[2018-08-31] MEDS: ENOXAPARIN 40 MG/0.4 ML SYRINGE (J1650) SC SCH (08:25)
--- NOTE | 2018-08-31 10:01 | CR.PDOC ---
General Surgery Consultation Date of Consultation 08/30/18 History and Physical CONSULT REPORT FOR: Sarthak Michele MD REASON FOR CONSULTATION: abdominal pain, abnormal CT, acute diverticulitis, ?acute appendicitis HISTORY OF PRESENT ILLNESS: I was asked to evaluate Ms. Menendez who is currently admitted in the hospital for abdominal pain related to her acute diverticulitis.In the same CT abdomen and pelvis that was done in the ER, she was also found to have some abnormality related to her appendix and on examination she is also somewhat tender on the right lower quadrant area thus I was asked to see if her symptoms are also consistent with appendicitis. She reports no prior history of diverticulitis. She has been having abdominal pain, nausea for approximately 5 days and she points around her lower abdomen including right center and left side where she hurts most. She describes this as crampy sometimes sharp, mostly constant. She felt febrile yesterday though she had not febrile temp documented in the ER. She has had previously colonoscopy 3 years ago. PAST MEDICAL HISTORY: 1. History of nephrolithiasis 2. Endometriosis 3. Mesh 4. Right dual renal artery aneurysm PAST SURGICAL HISTORY: INCLUDES: 1. Laparoscopy for endometriosis 2. Cystourethroscopy 2005 3. Right breast lumpectomy 4. Laparoscopic hysterectomy with resulting intra-abdominal abscess postoperatively requiring abdominal exploration with Dr. Acosta in 2012. No perforation was found. 5. Colonoscopy with polypectomy in 2015 6. Renal artery aneurysm stent ALLERGIES: Please see below. FAMILY HISTORY: Noncontributory. HOME MEDICATIONS: Please see below. REVIEW OF SYSTEMS: GENERAL: Patient reports symptoms of about 5 days really in duration including fevers, chills, nausea. HEENT: Denies eyes and ear symptoms. NECK: Denies any neck pain CARDIOVASCULAR: Denies chest pain and palpitations. MUSCULOSKELETAL: Denies arthralgias, back pain and thrombophlebitis. SKIN: Denies rash. NEUROLOGIC: Denies headache, stroke and transient ischemic attack. PSYCHIATRIC: Denies anxiety and depression. ENDOCRINE: Denies thyroid disease. HEMATOLOGY/ONCOLOGY: Denies bleeding or clotting disorder. HEART: Denies any chest pains, palpitations, paroxysmal dyspnea, orthopnea. PULMONARY: Denies chronic cough, dyspnea and wheezing. GASTROINTESTINAL: See HPI GENITOURINARY: Denies dysuria, frequency, hematuria and nocturia. Denies pain in urination, fecaluria ENDOCRINE: Denies polydipsia, polyphagia, polyuria, heat or cold intolerance. INFECTIOUS: Denies any recent upper respiratory tract infection, UTI, need for use of antibiotics. NUTRITION: Reports poor appetite. PHYSICAL EXAMINATION: VITALS SIGNS: Please see below. GENERAL APPEARANCE: looks relatively comfortable, no acute distress, healthy appearing. SKIN: warm and dry. HEENT: Normocephalic, atraumatic. [place] palpebral conjunctiva, anicteric sclerae. Lips and mucosa appear mildly dry. NECK: Supple, no thyromegaly. No obvious jugular venous distention. LUNGS: Clear to auscultation bilaterally. No wheezing appreciated. HEART: No chest wall abnormalities. Regular rate and rhythm with no murmurs appreciated. ABDOMEN: Abdomen is minimally distended, soft, mild tenderness on deep palpation around right side of midline on lower abdomen, suprapubic area, left lower quadrant area. Minimal tenderness on right lower quadrant area. No guarding. EXTREMITIES: Extremities have no deformities. No edema identified ANCILLARIES: . LABORATORY DATA: Please see below. IMAGING STUDIES: . CT scan abdomen and pelvis 1. Minimal colonic diverticulosis with mild diverticulitis of the proximal sigmoid which is new since 04/30/2018. 2. Borderline size of the appendix measuring 7 mm with fluid filled lumen and question of slight surrounding induration and is very slightly increased in size since the prior study. Borderline or early appendicitis is not excluded. 3. Mild fatty infiltration of the liver. 4. Status post hysterectomy. IMPRESSION AND PLAN: Acute Sigmoid Diverticulitis ?Acute nonperforated appendicitis I think the acute sigmoid diverticulitis is real and though there are changes in size of and appearance of the appendix, I dont appreciate much inflammation from it on looking at the CT scan images. This could be just reactive to the inflammation of the sigmoid colon. On examination, she is mostly tender on the left lower quadrant area and suprapubic area, only minimally tender on the right lower quadrant area. Even if this is mild appendicitis, we could continue to treat it with antibiotics and most of the time would resolve given she has a picture of noncomplicated appendicitis on CT. I do not recommend surgery at this point even if this is indeed appendicitis as we would be forced to act on the diverticulitis also. I would expect there would be a lot of associated inflamm ation and acute inflammatory adhesions from the diverticulitis. Most likely both conditions will improve with antibiotic treatment. will follow during hospitalization Vital Signs Vital Signs Date Time Temp Pulse Resp B/P (MAP) Pulse Ox O2 Delivery O2 Flow Rate FiO2 08/30/18 09:55 98.7 99 18 117/74 (88) 97 08/30/18 09:16 Room Air Laboratory Data Labs 24H Laboratory Tests 2 08/30/18 03:51: Immature Granulocyte % (Auto) 0.3, White Blood Count 14.1H, Red Blood Count 4.79, Hemoglobin 14.9, Hematocrit 44.3, Mean Corpuscular Volume 92.5, Mean Corpuscular Hemoglobin 31.1, Mean Corpuscular Hemoglobin Concent 33.6, Red Cell Distribution Width 12.1, Platelet Count 223, Neutrophils (%) (Auto) 82.7H, Lymphocytes (%) (Auto) 9.7L, Monocytes (%) (Auto) 7.0H, Eosinophils (%) (Auto) 0.1, Basophils (%) (Auto) 0.2, Neutrophils # (Auto) 11.6H, Lymphocytes # (Auto) 1.4L, Monocytes # (Auto) 1.0H, Eosinophils # (Auto) 0.0, Basophils # (Auto) 0.0, Nucleated Red Blood Cells % (auto) 0.0, Prothrombin Time 12.6, Prothromb Time International Ratio 0.93, Activated Partial Thromboplast Time 34.5, Anion Gap 6L, Glomerular Filtration Rate > 60.0, Lactic Acid Level 1.0, Calcium Level 8.8, Aspartate Amino Transf (AST/SGOT) 12, Alanine Aminotransferase (ALT/SGPT) 21, Alkaline Phosphatase 58, Total Bilirubin 0.6, Direct Bilirubin 0.1, Total Protein 6.7, Albumin 3.4, Albumin/Globulin Ratio 1.03, Lipase 99 08/30/18 06:53: Urine Appearance CLEAR, Urine Color STRAW, Urine pH 7.0, Urine Specific [place] >1.060H, Urine Protein 1+H, Urine Glucose (UA) NEGATIVE, Urine Ketones NEGATIVE, Urine Urobilinogen 0.2, Urine Bilirubin NEGATIVE, Urine Leukocyte Esterase NEGATIVE, Urine Blood 3+H, Urine Nitrite NEGATIVE, Urine WBC (Auto) 0, Urine RBC (Auto) 56H, Urine Hyaline Casts (Auto) 0, Urine Bacteria (Auto) NEGATIVE, Urine Squamous Epithelial Cells 0, Urine Sperm (Auto) CBC/BMP Laboratory Tests 08/30/18 03:51 Red Blood Count 4.79, Mean Corpuscular Volume 92.5, Mean Corpuscular Hemoglobin 31.1, Mean Corpuscular Hemoglobin Concent 33.6, Red Cell Distribution Width 12.1, Neutrophils (%) (Auto) 82.7 H, Lymphocytes (%) (Auto) 9.7 L, Monocytes (%) (Auto) 7.0 H, Eosinophils (%) (Auto) 0.1, Basophils (%) (Auto) 0.2, Neutrophils # (Auto) 11.6 H, Lymphocytes # (Auto) 1.4 L, Monocytes # (Auto) 1.0 H, Eosinophils # (Auto) 0.0, Basophils # (Auto) 0.0 Microbiology Microbiology 08/30/18 Urine Culture, Received Pending Home Medications Scheduled Atorvastatin Calcium (Atorvastatin Calcium) 40 Mg Tab, 40 MG PO DAILY, (Reported) Calcium Carb/Vitamin D3/Vit K1 (Viactiv Soft Chew) 1 Chw Chw, 1 CHW PO DAILY, (Reported) Clopidogrel Bisulfate (Plavix) 75 Mg Tab, 75 MG PO DAILY, (Reported) Ergocalciferol (Vitamin D2) (Drisdol) 50,000 Unit Capsule, 50,000 UNIT PO QWEEK, (Reported) SATURDAYS Scheduled PRN Acetaminophen (Acetaminophen) 500 Mg Tablet, 1,000 MG PO Q6H PRN for PAIN, (Reported) Epinephrine (Epipen 2-Deuce) 0.3 Mg/0.3 Ml Auto.injct, 1 SYRINGE IM ASDIRECTED PRN for ALLERGIC REACTION, (Reported) Polyethylene Glycol 3350 (Miralax) 119 Gm Powder, 17 GM PO DAILY PRN for CONSTIPATION, (Reported) dilute in 8 ounces of water or juice Allergies Coded Allergies: Sulfa (Sulfonamide Antibiotics) (Verified Allergy, Severe, anaphylactic, 08/30/18) fentanyl (Verified Allergy, Intermediate, headache/nausea, 08/30/18) shrimp (Verified Allergy, Intermediate, diarrhea, 08/30/18) tramadol (Verified Allergy, Intermediate, hives , 08/30/18) TOR WALKER MD August 30, 2018 13:03
--- NOTE | 2018-08-31 10:06 | IPNPDOC ---
Subjective General Date/Time Seen The patient was seen on 08/31/18 at 10:01. Subject Chief Complaint/History The patient is a 52-year-old female admitted with a reason for visit of Diverticulitis. Patient seen walking around room, pleasant, reports feeling more comfortable Current Medications Current Medications Current Medications Acetaminophen (Tylenol Tab) 650 mg Q4H PRN PO PAIN OR FEVER Last administered on 08/31/18at 08:28; Start 08/30/18 at 10:00 Aspirin (Ecotrin) 81 mg DAILY PO ; Start 08/30/18 at 09:00 Atorvastatin Calcium (Lipitor) 40 mg QHS PO Last administered on 08/30/18at 22:28; Start 08/30/18 at 21:00 Cetirizine HCl (ZyrTEC) 10 mg DAILY PO ; Start 08/30/18 at 09:00 Ciprofloxacin 400 mg/IV Miscellaneous Supplies 200 ml @ 200 mls/hr Q12H IV L ast administered on 08/31/18at 08:23; Start 08/30/18 at 20:00 Clopidogrel Bisulfate (PLAVix) 75 mg DAILY PO Last administered on 08/31/18at 08:24; Start 08/30/18 at 09:00 Diatrizoate Meglum/ Diatrizoate Sod (Gastrografin) 10 ml Q30M PO Last administered on 08/30/18at 04:24; Start 08/30/18 at 03:50; Stop 08/30/18 at 04:21; Status DC Enoxaparin Sodium (Lovenox) 40 mg DAILY SC ; Start 08/30/18 at 10:15; Stop 09/14/18 at 09:51 Home Med (Med Rec Complete!) ASDIRECTED XX ; Start 08/30/18 at 07:30; Stop 08/30/18 at 07:30; Status DC Metronidazole 500 mg/IV Miscellaneous Supplies 100 ml @ 100 mls/hr Q8H IV Last administered on 08/31/18at 08:24; Start 08/30/18 at 17:00 Ondansetron HCl (Zofran) 8 mg Q6HP PRN PO NAUSEA OR VOMITING Last administered on 08/30/18at 19:59; Start 08/30/18 at 10:00 Allergies Coded Allergies: Sulfa (Sulfonamide Antibiotics) (Verified Allergy, Severe, anaphylactic, 08/30/18) fentanyl (Verified Allergy, Intermediate, headache/nausea, 08/30/18) shrimp (Verified Allergy, Intermediate, diarrhea, 08/30/18) tramadol (Verified Allergy, Intermediate, hives , 08/30/18) Objective Physical Examination Examination GENERAL APPEARANCE:comfortable. SKIN: Warm and moist. HEENT: Normocephalic, atraumatic. [place] palpebral conjunctiva, anicteric sclerae. Lips and mucosa appear moist. NECK: Supple, no thyromegaly. No obvious jugular venous distention. LUNGS: Clear to auscultation bilaterally. No wheezing appreciated. HEART: No chest wall abnormalities. Regular rate and rhythm with no murmurs appreciated. ABDOMEN: Abdomen is nondistended, soft, minimal left over tenderness on left lower quadrant area. Nontender on right lower quadrant area. . EXTREMITIES: Extremities have no deformities. No edema identified. Vital Signs Vital Signs Date Time Temp Pulse Resp B/P (MAP) Pulse Ox O2 Delivery O2 Flow Rate FiO2 08/31/18 06:00 98.1 75 18 120/73 (89) 94 08/30/18 09:16 Room Air I&Os I&O- Last 24 Hours up to 6 AM 08/31/18 06:00 Intake Total 2120 ml Output Total 200 ml Balance 1920 ml Laboratory Data Labs 24H Laboratory Tests 2 08/31/18 05:18: Nucleated Red Blood Cells % (auto) 0.0, Anion Gap 4L, Glomerular Filtration Rate > 60.0, Blood Urea Nitrogen 9, Creatinine 0.58, Sodium Level 141, Potassium Lev el 3.5, Chloride Level 107, Carbon Dioxide Level 30, Calcium Level 8.5, Aspartate Amino Transf (AST/SGOT) 9, Alanine Aminotransferase (ALT/SGPT) 16, Alkaline Phosphatase 48, Total Bilirubin 0.6, Total Protein 6.5, Albumin 2.8L, Albumin/Globulin Ratio 0.76L CBC/BMP Laboratory Tests 08/31/18 05:18 Red Blood Count 4.25, Mean Corpuscular Volume 93.6, Mean Corpuscular Hemoglobin 31.8, Mean Corpuscular Hemoglobin Concent 33.9, Red Cell Distribution Width 12.3, Calcium Level 8.5, Aspartate Amino Transf (AST/SGOT) 9, Alanine Aminotransferase (ALT/SGPT) 16, Alkaline Phosphatase 48, Total Bilirubin 0.6, Total Protein 6.5, Albumin 2.8 L Microbiology Microbiology 08/30/18 Urine Culture - Final, Complete Impression Most likely acute diverticulitis, noncomplicated reactive appendicitis, if at all I will advance her to low residue diet. once all her symptoms resolve should be on high fiber diet. She is schedule to see Dr. Duke for scheduling colonoscopy in August. would suggest holding off colonoscopy to at least after 6-8 weeks. will sign off Plan / VTE VTE Prophylaxis Ordered?: Yes TOR WALKER MD Aug 31, 2018 10:05
[2018-08-31 14:00] VITALS: BP 114/76
--- NOTE | 2018-08-31 19:36 | IPNPDOC ---
Subjective Date Seen The patient was seen on 08/31/18. Assessment /Plan Plan/VTE VTE Prophylaxis Ordered?: Yes VS, I&O, 24H, Fishbone Vital Signs/I&O Vital Signs Date Time Temp Pulse Resp B/P (MAP) Pulse Ox O2 Delivery O2 Flow Rate FiO2 08/31/18 14:00 98.0 85 18 114/76 (89) 94 08/30/18 09:16 Room Air I&O- Last 24 Hours up to 6 AM0 08/31/18 06:00 Intake Total 2120 ml Output Total 200 ml Balance 1920 ml Laboratory Data 24H LABS Laboratory Tests 2 08/31/18 05:18: Nucleated Red Blood Cells % (auto) 0.0, Anion Gap 4L, Glomerular Filtration Rate > 60.0, Blood Urea Nitrogen 9, Creatinine 0.58, Sodium Level 141, Potassium Level 3.5, Chloride Level 107, Carbon Dioxide Level 30, Calcium Level 8.5, Aspartate Amino Transf (AST/SGOT) 9, Alanine Aminotransferase (ALT/SGPT) 16, Alkaline Phosphatase 48, Total Bilirubin 0.6, Total Protein 6.5, Albumin 2.8L, Albumin/Globulin Ratio 0.76L CBC/BMP Laboratory Tests 08/31/18 05:18 Red Blood Count 4.25, Mean Corpuscular Volume 93.6, Mean Corpuscular Hemoglobin 31.8, Mean Corpuscular Hemoglobin Concent 33.9, Red Cell Distribution Width 12.3, Calcium Level 8.5, Aspartate Amino Transf (AST/SGOT) 9, Alanine Aminotransferase (ALT/SGPT) 16, Alkaline Phosphatase 48, Total Bilirubin 0.6, Total Protein 6.5, Albumin 2.8 L Microbiology Microbiology 08/30/18 Urine Culture - Final, Complete Adam Javed MD Aug 31, 2018 19:36
[2018-08-31] MEDS: ATORVASTATIN 20 MG TAB PO SCH (20:17)
[2018-08-31] MEDS ORDERED: metroNIDAZOLE (FLAGYL) 500 MG TAB PO SCH (21:00)
[2018-08-31 22:00] VITALS: BP 116/70
[2018-09-01] MEDS: metroNIDAZOLE 500 MG in APPROPRIATE DILUENT 1 EA IV SCH (01:03)
[2018-09-01] MEDS: ONDANSETRON 4 MG TAB (S0181) PO PRN (05:46)
[2018-09-01 06:00] VITALS: BP 129/77
[2018-09-01] MEDS ORDERED: CIPROFLOXACIN 500 MG TAB PO SCH (06:00)
[2018-09-01 06:09] LABS: BASO % 0.4 % (0.0-1.0); EOS # 0.1 10^3/uL (0.0-0.50); EOS % 1.5 % (0.0-3.0); HEMATOCRIT 40.3 % (36.0-47.0); HEMOGLOBIN 13.3 g/dl (12.0-15.5); LYMPH # 2.4 10^3/uL (1.5-4.5); LYMPH % 30.2 % (24.0-44.0); MONO # 0.7 10^3/uL (0.0-0.8); MONO % 8.7 % (0.0-5.0); NEUTROPHILS # 4.7 10^3/uL (1.8-7.7); PLATELET COUNT, AUTOMATED 212 10^3/uL (150-450); RED BLOOD COUNT 4.43 10^6/uL (4.00-5.40)
[2018-09-01 06:31] LABS: ALT/SGPT 16 U/L (12-78); BILIRUBIN,TOTAL 0.3 MG/DL (0.2-1.0); BLOOD UREA NITROGEN 12 MG/DL (7-18); CARBON DIOXIDE LEVEL 27 MEQ/L (21-32); CHLORIDE LEVEL 108 MEQ/L (98-107); GLOMERULAR FILTRATION RATE > 60.0 (>51); GLUCOSE, FASTING 86 MG/DL (70-100); POTASSIUM SERUM 3.7 MEQ/L (3.5-5.1); SODIUM LEVEL 142 MEQ/L (136-145); TOTAL PROTEIN 6.5 GM/DL (6.4-8.2)
[2018-09-01] MEDS: ACETAMINOPHEN TAB 650MG DOSE (2X325MG) PO PRN (08:19)
[2018-09-01] MEDS: CLOPIDOGREL 75 MG TAB PO SCH (08:19)
[2018-09-01] MEDS: CETIRIZINE (ZyrTEC) 10 MG TAB PO SCH (08:32)
[2018-09-01] MEDS: ASPIRIN 81 MG ENTERIC TAB PO SCH (08:32)
[2018-09-01] MEDS: ENOXAPARIN 40 MG/0.4 ML SYRINGE (J1650) SC SCH (08:32)
--- NOTE | 2018-09-01 14:03 | DS.PDOC ---
Discharge Summary General Date of Admission August 30, 2018 at 07:14 Discharge Summary PROCEDURES PERFORMED DURING STAY: [None]. ADMITTING DIAGNOSES: 1. . DISCHARGE DIAGNOSES: 1. . COMPLICATIONS/CHIEF COMPLAINT: Diverticulitis. HISTORY OF PRESENT ILLNESS: . HOSPITAL COURSE: . DISCHARGE MEDICATIONS: Please see below. ALLERGIES: Please see below. PHYSICAL EXAMINATION ON DISCHARGE: VITAL SIGNS: Please see below. GENERAL: HEENT: NECK: CARDIOVASCULAR EXAMINATION: RESPIRATORY EXAMINATION: ABDOMINAL EXAMINATION: EXTREMITIES: SKIN: NEUROLOGICAL EXAMINATION: PSYCHIATRIC EXAMINATION: LABORATORY DATA: Please see below. IMAGING: PROGNOSIS: ACTIVITY: [As tolerated]. DIET: DISCHARGE PLAN: DISPOSITION: . DISCHARGE INSTRUCTIONS: 1. . ITEMS TO FOLLOWUP ON ON OUTPATIENT: 1. . DISCHARGE CONDITION: [Stable]. TIME SPENT ON DISCHARGE: Greater than minutes. Vital Signs/I&Os Vital Signs Date Time Temp Pulse Resp B/P (MAP) Pulse Ox O2 Delivery O2 Flow Rate FiO2 09/01/18 06:00 97.7 63 18 129/77 (94) 94 08/30/18 09:16 Room Air I&O- Last 24 Hours up to 6 AM 09/01/18 06:00 Intake Total 1520 ml Output Total 2095 ml Balance -575 ml Laboratory Data Labs 24H Laboratory Tests 2 09/01/18 05:40: Immature Granulocyte % (Auto) 0.2, White Blood Count 8.0, Red Blood Count 4.43, Hemoglobin 13.3, Hematocrit 40.3, Mean Corpuscular Volume 91.0, Mean Corpuscular Hemoglobin 30.0, Mean Corpuscular Hemoglobin Concent 33.0, Red Cell Distribution Width 12.0, Platelet Count 212, Neutrophils (%) (Auto) 59.0, Lymphocytes (%) (Auto) 30.2, Monocytes (%) (Auto) 8.7H, Eosinophils (%) (Auto) 1.5, Basophils (%) (Auto) 0.4, Neutrophils # (Auto) 4.7, Lymphocytes # (Auto) 2.4, Monocytes # (Auto) 0.7, Eosinophils # (Auto) 0.1, Basophils # (Auto) 0.0, Nucleated Red Blood Cells % (auto) 0.0, Anion Gap 7L, Glomerular Filtration Rate > 60.0, Blood Urea Nitrogen 12, Creatinine 0.60, Sodium Level 142, Potassium Level 3.7, Chloride Level 108H, Carbon Dioxide Level 27, Calcium Level 9.0, Aspartate Amino Transf (AST/SGOT) 7, Alanine Aminotransferase (ALT/SGPT) 16, Alkaline [place] sphatase 45, Total Bilirubin 0.3, Total Protein 6.5, Albumin 3.0L, Albumin/Globulin Ratio 0.86L CBC/BMP Laboratory Tests 09/01/18 05:40 Red Blood Count 4.43, Mean Corpuscular Volume 91.0, Mean Corpuscular Hemoglobin 30.0, Mean Corpuscular Hemoglobin Concent 33.0, Red Cell Distribution Width 12.0, Neutrophils (%) (Auto) 59.0, Lymphocytes (%) (Auto) 30.2, Monocytes (%) (Auto) 8.7 H, Eosinophils (%) (Auto) 1.5, Basophils (%) (Auto) 0.4, Neutrophils # (Auto) 4.7, Lymphocytes # (Auto) 2.4, Monocytes # (Auto) 0.7, Eosinophils # (Auto) 0.1, Basophils # (Auto) 0.0, Calcium Level 9.0, Aspartate Amino Transf (AST/SGOT) 7, Alanine Aminotransferase (ALT/SGPT) 16, Alkaline Phosphatase 45, Total Bilirubin 0.3, Total Protein 6.5, Albumin 3.0 L Microbiology Microbiology 08/30/18 Urine Culture - Final, Complete Discharge Medications Scheduled Atorvastatin Calcium (Atorvastatin Calcium) 40 Mg Tab, 40 MG PO DAILY, (Reported) Calcium Carb/Vitamin D3/Vit K1 (Viactiv Soft Chew) 1 Chw Chw, 1 CHW PO DAILY, (Reported) Clopidogrel Bisulfate (Plavix) 75 Mg Tab, 75 MG PO DAILY, (Reported) Ergocalciferol (Vitamin D2) (Drisdol) 50,000 Unit Capsule, 50,000 UNIT PO QWEEK, (Reported) SATURDAYS Scheduled PRN Acetaminophen (Acetaminophen) 500 Mg Tablet, 1,000 MG PO Q6H PRN for PAIN, (Reported) Epinephrine (Epipen 2-Deuce) 0.3 Mg/0.3 Ml Auto.injct, 1 SYRINGE IM ASDIRECTED PRN for ALLERGIC REACTION, (Reported) Polyethylene Glycol 3350 (Miralax) 119 Gm Powder, 17 GM PO DAILY PRN for CONSTIPATION, (Reported) dilute in 8 ounces of water or juice Allergies Coded Allergies: Sulfa (Sulfonamide Antibiotics) (Verified Allergy, Severe, anaphylactic, 08/30/18) fentanyl (Verified Allergy, Intermediate, headache/nausea, 08/30/18) shrimp (Verified Allergy, Intermediate, diarrhea, 08/30/18) tramadol (Verified Allergy, Intermediate, hives , 08/30/18) Adam Javed MD Sep 01, 2018 14:03
[2018-09-01] MEDS ORDERED: CIPR-249 PO (14:14)
[2018-09-01] MEDS ORDERED: METR-265 PO (14:14)
[2018-09-01] MEDS ORDERED: metroNIDAZOLE (FLAGYL) 500 MG TAB PO SCH (21:00)
== END 2018-09-01 14:37 | disposition home or self-care (01) | DRG 244 ==
LOC: M ED 02:16 → M ED INP 07:14 → M MSPAV 09:54
PROVIDERS: ADMIT Internal Medicine; ATTEND Family Medicine
DX: K57.32 Diverticulitis of large intestine without perforation or abscess without bleeding (principal); K35.80 Unspecified acute appendicitis; K76.0 Fatty (change of) liver, not elsewhere classified; I65.23 Occlusion and stenosis of bilateral carotid arteries; J30.9 Allergic rhinitis, unspecified; E83.110 Hereditary hemochromatosis; G43.909 Migraine, unspecified, not intractable, without status migrainosus; M50.30 Other cervical disc degeneration, unspecified cervical region; Z87.442 Personal history of urinary calculi; Z91.013 Allergy to seafood; Z88.2 Allergy status to sulfonamides; Z88.5 Allergy status to narcotic agent; Z96.0 Presence of urogenital implants; Z79.02 Long term (current) use of antithrombotics/antiplatelets; Z79.899 Other long term (current) drug therapy; Z90.710 Acquired absence of both cervix and uterus

== ENCOUNTER → 2018-09-09 | Outpatient (CLI) | payer OTHER ==
[~2018-09-09] MED LIST changes: +ACET-683 PO; +CIPR-249 PO; +DRIS50003 PO; +EPIP0.3I2 IM; +METR-265 PO; +MIRA3350 PO
--- NOTE | 2018-09-09 11:12 | REPMRS ---
Patient History The patient states she had a clinical breast exam in 08/2018. No known family history of cancer. Benign radio exam breast specimen of the right breast, August 05, 2012. Benign localization of breast nodule of the right breast, August 05, 2012. No Hormone Replacement Therapy Digital Woman Screen Mammo: September 09, 2018 - Exam #: [id number] Bilateral CC and MLO view(s) were taken. Technologist: Susi Urban, Technologist Prior study comparison: September 07, 2017, digital woman screen mammo performed at [facility]. September 06, 2016, digital woman screen mammo performed at [facility]. September 08, 2015, digital woman screen mammo performed at [facility]. FINDINGS: The breast tissue is extremely dense which could obscure a lesion on mammography. There is an extremely dense symmetrical pattern of residual fibroglandular tissue. There has been no change in the appearance of the mammogram from the previous studies. There is no interval development of dominant mass, archetectural distortion, or microcalcific cluster suggestive of malignancy. 3-D tomosynthesis shows no additional findings. Assessment: BI-RADS/ACR category 1 mammogram. Negative Mammogram. Recommendation Routine screening mammogram of both breasts in 1 year (for women over age 40). This patient's Lifetime Breast Cancer RIsk is estimated at 8.8 %. This mammogram was interpreted with the aid of an FDA-approved computer-aided dectection system. Electronically Signed By: Arnel Hager MD 09/09/18 1111
== END ==
LOC: M WHC 08:30
PROVIDERS: ATTEND Family Medicine
DX: Z13.21 Encounter for screening for nutritional disorder (principal)

== ENCOUNTER → 2018-09-09 | Outpatient (REF) | payer OTHER ==
[2018-09-11 14:09] LABS: HPV HYBRID CAPTURE II Negative (Negative)
== END ==
LOC: M SFHCWAGY 09:00
PROVIDERS: ATTEND Nurse Practitioner Family
DX: Z12.72 Encounter for screening for malignant neoplasm of vagina (principal)

== ENCOUNTER → 2018-09-19 | Outpatient (REF) | payer OTHER ==
[2018-09-19 13:58] LABS: BASO % 0.5 % (0.0-1.0); EOS # 0.1 10^3/uL (0.0-0.50); EOS % 0.8 % (0.0-3.0); HEMATOCRIT 43.3 % (36.0-47.0); HEMOGLOBIN 14.3 g/dl (12.0-15.5); LYMPH # 2.2 10^3/uL (1.5-4.5); LYMPH % 28.1 % (24.0-44.0); MEAN CORPUSCULAR VOLUME 93.9 fl (80.0-96.0); MONO # 0.5 10^3/uL (0.0-0.8); MONO % 5.9 % (0.0-5.0); NEUTROPHILS # 5.1 10^3/uL (1.8-7.7); NEUTROPHILS % 64.4 % (36.0-66.0); PLATELET COUNT, AUTOMATED 253 10^3/uL (150-450); RED BLOOD COUNT 4.61 10^6/uL (4.00-5.40); WHITE BLOOD COUNT 7.9 10^3/uL (4.0-10.0)
[2018-09-19 14:25] LABS: ERYTHROCYTE SEDIMENTATION RATE 9 mm/hr (0-30)
== END ==
LOC: M SFHCPLAZ 13:13
PROVIDERS: ATTEND Physician Assistant Medical
DX: K35.30 Acute appendicitis with localized peritonitis, without perforation or gangrene (principal)

== ENCOUNTER → 2018-10-31 | Outpatient (CLI) | payer OTHER ==
[~2018-10-31] MED LIST changes: -VIAC8.5C PO; +VIACTIV 500-5001 CHW PO
--- NOTE | 2018-10-31 12:48 | REP ---
Clinical: Right lower quadrant pelvic pain . Technique: Transabdominal pelvic ultrasound followed by transvaginal examination for better evaluation of the endometrium and adnexa with color Doppler evaluation of the ovaries. Findings: Bladder is unremarkable and measures 6.9 x 9.3 x 5.8 cm . The patient is status post hysterectomy without fluid collection or pelvic mass lesion. Bilateral ovaries are normal in appearance and vascularity without evidence for torsion. Right ovary measures 2.5 x 1.4 x 2.5 cm with 2.0 cm physiologic cyst ; R I = 0.44 . Left ovary measures 1.0 x 0.9 x 0.9 cm ; R I = 0.52 . Impression: 1. Status post hysterectomy. 2. A 2 cm right ovarian cyst likely physiologic. Consider reevaluation in 4-6 weeks to evaluate for resolution.
== END ==
LOC: M WHC 10:47
PROVIDERS: ATTEND Surgery
DX: R10.31 Right lower quadrant pain (principal)

== ENCOUNTER 2018-12-09 07:43 | Day surgery (SDC) | payer OTHER ==
[~2018-12-09] VITALS: Ht 175.3 cm; Wt 82.6 kg
[~2018-12-09 07:43] MED LIST changes: +NS 1,000 ML IV ONE
[2018-12-09] MEDS ORDERED: LIDOCAINE 2% INJ 100 MG/5 ML SDV (FOR ANES.) As Ordered ONE (08:12)
[2018-12-09] MEDS ORDERED: PROPOFOL 200 MG/20 ML VIAL As Ordered ONE (08:12)
--- NOTE | 2018-12-09 09:28 | ROOR ---
Patient Name: Deedee Menendez Procedure Date: 12/09/2018 8:53 AM Date of : 1965 Age: 53 Room: [facility] Gender: Female Note Status: Finalized Procedure: Colonoscopy Indications: High risk colon cancer surveillance: Personal history of colonic polyps, Last colonoscopy: August 2015 Providers: Paul MEADE MD Referring MD: Gamaliel Nicolas MD Requesting Provider: Medicines: Monitored Anesthesia Care Complications: No immediate complications. Procedure: Pre-Anesthesia Assessment: - The heart rate, respiratory rate, oxygen saturations, blood pressure, adequacy of pulmonary ventilation, and response to care were monitored throughout the procedure. The Colonoscope was introduced through the anus and advanced to the cecum, identified by appendiceal orifice and ileocecal valve. The colonoscopy was performed without difficulty. The patient tolerated the procedure well. The quality of the bowel preparation was good. Findings: The perianal and digital rectal examinations were normal. A few small-mouthed diverticula were found in the sigmoid colon and descending colon. Three sessile polyps were found in the sigmoid colon and cecum. The polyps were diminutive in size. These polyps were removed with a cold snare. Resection and retrieval were complete. To close a defect after polypectomy, two hemostatic clips were successfully placed in the proximal sigmoid colon polypectomy site. Impression: - Very mild diverticulosis in the sigmoid colon and in the descending colon. - Three diminutive polyps in the sigmoid colon and in the cecum, removed with a cold snare. Resected and retrieved. - Two hemostatic clips were successfully placed in the proximal sigmoid colon. - The colonoscopy was otherwise normal. Recommendation: - Resume Plavix (clopidogrel) at prior dose on 12/11/18. - Repeat colonoscopy in 3 years for surveillance. Paul Meade MD aPul MEADE MD 12/09/2018 9:28:02 AM Electronically signed by Paul MEADE MD Number of Addenda: 0 Note Initiated On: 12/09/2018 8:53 AM Estimated Blood Loss: Estimated blood loss: none.
[2018-12-09 09:40] VITALS: BP 124/86
== END 2018-12-09 09:49 | disposition home or self-care (01) ==
LOC: M OPP 07:43
PROVIDERS: ATTEND Internal Medicine Gastroenterology
DX: Z12.11 Encounter for screening for malignant neoplasm of colon (principal); Z86.010 Personal history of colon polyps; D12.5 Benign neoplasm of sigmoid colon; D12.0 Benign neoplasm of cecum; K57.30 Diverticulosis of large intestine without perforation or abscess without bleeding; Z79.899 Other long term (current) drug therapy; Z88.2 Allergy status to sulfonamides; Z88.5 Allergy status to narcotic agent; Z91.013 Allergy to seafood

== ENCOUNTER → 2019-01-24 | Outpatient (REF) | payer OTHER ==
[~2019-01-24] MED LIST changes: +CALC500C16 PO; -NS 1,000 ML IV ONE; +PHEN-815 PO
[2019-01-24 10:11] LABS: APPEARANCE, URINE HAZY (CLEAR); BACTERIA, URINE AUTO NEGATIVE (NEGATIVE); BILIRUBIN, URINE AUTO NEGATIVE (NEGATIVE); BLOOD, URINE BLOOD 3+ (NEGATIVE); COLOR, URINE YELLOW (YELLOW); GLUCOSE, URINE (UA) AUTO NEGATIVE (NEGATIVE); KETONE, URINE AUTO NEGATIVE (NEGATIVE); LEUKOCYTE ESTERASE, URINE AUTO NEGATIVE (NEGATIVE); MUCUS, URINE SMALL (NEGATIVE); NITRITE, URINE AUTO NEGATIVE (NEGATIVE); PROTEIN, URINE AUTO 2+ mg/dL (NEGATIVE); RBC, URINE AUTO 51 /HPF (0-3); SQUAMOUS EPITHELIAL CELL UR AU 15 /HPF (0-6); UROBILINOGEN, URINE AUTO 0.2 mg/dL (0.0-2.0); WBC, URINE AUTO 3 /HPF (0-3)
[2019-01-24 10:25] LABS: HEMOGLOBIN A1c 5.3 %
[2019-01-24 10:51] LABS: ALBUMIN 3.7 GM/DL (3.2-5.2); ALT/SGPT 31 U/L (12-78); BILIRUBIN,TOTAL 0.6 MG/DL (0.2-1.0); BLOOD UREA NITROGEN 17 MG/DL (7-18); CARBON DIOXIDE LEVEL 31 MEQ/L (21-32); CHLORIDE LEVEL 107 MEQ/L (98-107); CREATININE FOR GFR 0.65 MG/DL (0.55-1.30); FERRITIN 103 NG/ML (8-252); FREE T4 1.01 NG/DL (0.76-1.46); GLOMERULAR FILTRATION RATE > 60.0 (>51); GLUCOSE, FASTING 80 MG/DL (70-100); IRON (FE) 149 UG/DL (50-170); PERCENT SATURATION 58.7 % (13.2-45.0); POTASSIUM SERUM 4.5 MEQ/L (3.5-5.1); PTH INTACT 56.4 PG/ML (18.5-88.0); SODIUM LEVEL 142 MEQ/L (136-145); TOTAL 25(OH) VITAMIN D 53.5 NG/ML (30.0-100.0); TOTAL IRON BINDING CAPACITY 254 UG/DL (250-450); TOTAL PROTEIN 6.6 GM/DL (6.4-8.2)
[2019-01-24 11:33] LABS: MAU/CREAT RATIO 315.4 MCG/MG (0.0-30.0)
== END ==
LOC: M SFHCPLAZ 08:11
PROVIDERS: ATTEND Family Medicine
DX: R73.01 Impaired fasting glucose (principal); E03.9 Hypothyroidism, unspecified; E55.9 Vitamin D deficiency, unspecified; E83.119 Hemochromatosis, unspecified

== ENCOUNTER 2019-01-29 20:13 | Emergency (ER) | payer OTHER ==
[~2019-01-29] VITALS: Ht 177.8 cm; Wt 85.0 kg
[~2019-01-29 20:13] MED LIST changes: -CALC500C16 PO; -PHEN-815 PO
[2019-01-29] MEDS ORDERED: PHEN-815 PO (20:40)
[2019-01-29] MEDS ORDERED: CALC500C16 PO (20:40)
[2019-01-29 20:48] LABS: BASO # 0.1 10^3/uL (0.0-0.2); BASO % 0.4 % (0.0-1.0); EOS % 0.2 % (0.0-3.0); HEMATOCRIT 42.4 % (36.0-47.0); HEMOGLOBIN 14.4 g/dl (12.0-15.5); LYMPH # 1.7 10^3/uL (1.5-5.0); MEAN CORPUSCULAR VOLUME 91.4 fl (80.0-96.0); MONO # 0.9 10^3/uL (0.0-0.8); MONO % 6.6 % (0.0-5.0); NEUTROPHILS # 10.6 10^3/uL (1.5-8.5); NEUTROPHILS % 79.5 % (36.0-66.0); PLATELET COUNT, AUTOMATED 227 10^3/uL (150-450); RED BLOOD COUNT 4.64 10^6/uL (4.00-5.40); WHITE BLOOD COUNT 13.4 10^3/uL (4.0-10.0)
[2019-01-29 21:26] LABS: BLOOD UREA NITROGEN 13 MG/DL (7-18); CALCIUM LEVEL 9.4 MG/DL (8.5-10.1); CARBON DIOXIDE LEVEL 26 MEQ/L (21-32); CHLORIDE LEVEL 106 MEQ/L (98-107); CPK CREATINE PHOSPHOKINASE 138 U/L (26-192); CREATININE FOR GFR 0.61 MG/DL (0.55-1.30); GLOMERULAR FILTRATION RATE > 60.0 (>51); GLUCOSE, FASTING 100 MG/DL (70-100); MB/CK RELATIVE INDEX 0.72 (< OR =4); POTASSIUM SERUM 3.8 MEQ/L (3.5-5.1); SODIUM LEVEL 140 MEQ/L (136-145); TROPONIN I < 0.02 NG/ML (< 0.10)
[2019-01-29] MEDS ORDERED: ISOVUE-370 76% 100ML VIAL (Q9967) As Ordered ONE (22:17)
--- NOTE | 2019-01-29 22:46 | REPVR ---
PROCEDURE INFORMATION: Exam: CT Angiography Chest With Contrast Exam date and time: 01/29/2019 10:16 PM Clinical history: 53 years old, female; Chest pain; Additional info: Cp TECHNIQUE: Imaging protocol: Computed tomographic angiography of the chest with intravenous contrast. 3D rendering: MIP reconstructed images were created and reviewed. Radiation optimization: All CT scans at this facility use at least one of these dose optimization techniques: automated exposure control; mA and/or kV adjustment per patient size (includes targeted exams where dose is matched to clinical indication); or iterative reconstruction. Contrast material: ISOVUE 370; Contrast volume: 75 ml; Contrast route: IV; COMPARISON: CR PORTABLE CHEST X-RAY 01/29/2019 8:36 PM FINDINGS: Pulmonary arteries: The main pulmonary artery measures 27 mm. No pulmonary embolism is identified. Aorta: The ascending thoracic aorta measures 32 mm. No gross or obvious aortic dissection is identified distal to the mid arch. Artifact and image degradation precludes detailed evaluation of the ascending thoracic aorta. Lungs: Mild dependent atelectasis posteriorly. No focal infiltrates. Pleural space: Unremarkable. No pneumothorax. No pleural effusion. Heart: Unremarkable. No cardiomegaly. No pericardial effusion. Spleen: Splenic cyst with a Hounsfield measurement of 9 measuring 20 mm. Kidneys and ureters: There is a left renal cyst measuring up to 3.1 cm. Lymph nodes: Unremarkable. No enlarged lymph nodes. Bones/joints: Unremarkable. No acute fracture. Soft tissues: Unremarkable. IMPRESSION: Negative CTA chest. No pulmonary embolism is identified. Electronically signed by: Chris Mckenna On 01/29/2019 22:45:53 PM
[2019-01-30 00:57] LABS: CK-MB VALUE MASS < 1.0 NG/ML (<3.6); CPK CREATINE PHOSPHOKINASE 126 U/L (26-192); MB/CK RELATIVE INDEX 0.79 (< OR =4); TROPONIN I < 0.02 NG/ML (< 0.10)
[2019-01-30] MEDS ORDERED: ACETAMINOPHEN 500 MG TAB PO ONE (01:30)
[2019-01-30 01:45] VITALS: BP 122/69
--- NOTE | 2019-01-30 06:59 | ECGEPIP ---
[facility] - ED Test Date: 2019-01-29 Pat Name: JARROD ELAINE Department: Room: - Gender: Female Loan Officer: fernando : 1965 Requested By: ANTHONY MEHTA Order Number: [id number] Reading MD: Akila Vallejo Measurements Intervals [place] Rate: 105 P: 40 AR: 136 QRS: 29 QRSD: 83 T: 27 QT: 334 QTc: 443 Interpretive Statements SINUS TACHYCARDIA ABNORMAL RHYTHM ECG NSTTW abnormalities INCREASED RATE 07/28/17 Electronically Signed on 01-30-2019 6:59:07 EDT by Akila Vallejo
--- NOTE | 2019-01-30 07:01 | ECGEPIP ---
[facility] - ED Test Date: 2019-01-30 Pat Name: JARROD ELAINE Department: Room: - Gender: Female Natural Resource Officer: fernando : 1965 Requested By: ANTHONY MEHTA Order Number: [id number] Reading MD: Akila Vallejo Measurements Intervals [place] Rate: 99 P: 39 NE: 159 QRS: 25 QRSD: 83 T: 33 QT: 340 QTc: 437 Interpretive Statements SINUS RHYTHM NSTTW abnormalities SIMILAR 01/29/19 20:23 Electronically Signed on 01-30-2019 7:01:21 EDT by Akila Vallejo
--- NOTE | 2019-01-30 07:51 | REP ---
Clinical: Acute chest pain . Comparison: 01/04/2017 . Findings: The mediastinum and cardiac silhouette are stable and within normal limits for portable technique. The lung bassett are clear without acute consolidation, effusion, or pneumothorax. Skeletal structures are intact. Impression: No acute cardiopulmonary process appreciated. Electronically Signed by Mason Gage MD 01/30/2019 07:43 A
== END 2019-01-30 01:47 | disposition home or self-care (01) ==
LOC: M ED 20:13
DX: R07.89 Other chest pain (principal); R05 Cough; R09.81 Nasal congestion; M54.9 Dorsalgia, unspecified; Z88.2 Allergy status to sulfonamides; Z88.5 Allergy status to narcotic agent; Z91.013 Allergy to seafood; Z79.899 Other long term (current) drug therapy; Z79.02 Long term (current) use of antithrombotics/antiplatelets
CPT/HCPCS: 71045; 71275; 80048; 82550; 82553; 85025; 93005; 93041; 94760; 99285; Q9967

== ENCOUNTER → 2019-02-06 | Outpatient (CLI) | payer OTHER ==
[~2019-02-06] MED LIST changes: +CALC500C16 PO; +PHEN-815 PO
--- NOTE | 2019-02-06 08:08 | REP ---
Right upper quadrant abdominal ultrasound for hemochromatosis: The on a comparison abdomen/pelvis CT without IV contrast dated 04/30/[address] density of the hepatic parenchyma is 54.5 HU and of the spleen is 41.1 Hounsfield units. This increased density of the liver is compatible with hemochromatosis. On the ultrasound study today the hepatic parenchyma is homogeneous but hyperechoic. Hepatic ultrasound hyper echogenicity is compatible with steatosis as well as hemochromatosis. There are biopsy may ultimately be required. No hepatic masses are identified. The the visualized areas of the pancreas are unremarkable. There is no cholelithiasis, gallbladder wall thickening or pericholecystic fluid. The right kidney measures 10.7 x 5.5 x 4.0 cm and is normal size. There is a 1.0 cm right renal cyst. There are no solid right renal masses. There are no calculi. There is no hydronephrosis. A right renal artery vascular stent is identified. There is no right upper quadrant ascites. Impression: The hepatic parenchyma is hyperechoic. This can be seen in steatosis as well as hemochromatosis. On the comparison abdomen/pelvis CT dated 04/30/2018 without IV contrast, the hepatic parenchyma demonstrates increased density compared to the spleen. This is compatible with hemochromatosis. Biopsy may ultimately be required. There are no hepatic masses. There is a 1 cm right renal cyst. The right renal artery vascular stent is identified. Electronically Signed by Robbie Ward MD 02/06/2019 07:59 A
== END ==
LOC: M RAD 06:55
PROVIDERS: ATTEND Family Medicine
DX: E83.119 Hemochromatosis, unspecified (principal); N28.1 Cyst of kidney, acquired

== ENCOUNTER → 2019-07-14 | Outpatient (REF) | payer OTHER ==
[2019-07-14 10:02] LABS: BASO % 0.5 % (0.0-1.0); EOS # 0.1 10^3/uL (0.0-0.5); EOS % 1.3 % (0.0-3.0); HEMATOCRIT 42.8 % (36.0-47.0); HEMOGLOBIN 14.6 g/dl (12.0-15.5); LYMPH # 1.9 10^3/uL (1.5-5.0); LYMPH % 34.2 % (24.0-44.0); MEAN CORPUSCULAR HEMOGLOBIN 31.6 pg (27.0-33.0); MEAN CORPUSCULAR HGB CONC 34.1 g/dl (32.0-36.5); MEAN CORPUSCULAR VOLUME 92.6 fl (80.0-96.0); MONO # 0.5 10^3/uL (0.0-0.8); MONO % 8.1 % (0.0-5.0); NEUTROPHILS # 3.1 10^3/uL (1.5-8.5); NEUTROPHILS % 55.5 % (36.0-66.0); PLATELET COUNT, AUTOMATED 253 10^3/uL (150-450); RED BLOOD COUNT 4.62 10^6/uL (4.00-5.40); WHITE BLOOD COUNT 5.6 10^3/uL (4.0-10.0)
[2019-07-14 10:19] LABS: HEMOGLOBIN A1c 5.5 %
[2019-07-14 10:48] LABS: ALBUMIN 3.6 GM/DL (3.2-5.2); ALT/SGPT 26 U/L (12-78); BILIRUBIN,TOTAL 0.5 MG/DL (0.2-1.0); BLOOD UREA NITROGEN 16 MG/DL (7-18); CARBON DIOXIDE LEVEL 31 MEQ/L (21-32); CHLORIDE LEVEL 108 MEQ/L (98-107); CHOLESTEROL LEVEL 177 MG/DL (<200); CHOLESTEROL RISK RATIO 4.022 (<5); CREATININE FOR GFR 0.61 MG/DL (0.55-1.30); FERRITIN 92 NG/ML (8-252); FREE T4 1.08 NG/DL (0.76-1.46); GLOMERULAR FILTRATION RATE > 60.0 (>51); GLUCOSE, FASTING 80 MG/DL (70-100); HDL CHOLESTEROL 44 MG/DL (>40); IRON (FE) 131 UG/DL (50-170); LDL CHOLESTEROL 100 MG/DL (<100); NON-HDL-C 133 MG/DL; PERCENT SATURATION 46.6 % (13.2-45.0); POTASSIUM SERUM 4.5 MEQ/L (3.5-5.1); SODIUM LEVEL 143 MEQ/L (136-145); TOTAL IRON BINDING CAPACITY 281 UG/DL (250-450); TOTAL PROTEIN 6.7 GM/DL (6.4-8.2); TRIGLYCERIDES LEVEL 166 MG/DL (<150)
== END ==
LOC: M SFHCPLAZ 08:02
PROVIDERS: ATTEND Family Medicine
DX: E78.5 Hyperlipidemia, unspecified (principal); E83.119 Hemochromatosis, unspecified; E03.9 Hypothyroidism, unspecified; E78.00 Pure hypercholesterolemia, unspecified; R73.01 Impaired fasting glucose

== ENCOUNTER → 2019-08-20 | Outpatient (REF) | payer MEDICARE, OTHER ==
[2019-08-20 21:26] LABS: APPEARANCE, URINE HAZY (CLEAR); BACTERIA, URINE AUTO NEGATIVE (NEGATIVE); BILIRUBIN, URINE AUTO NEGATIVE (NEGATIVE); BLOOD, URINE BLOOD 3+ (NEGATIVE); COLOR, URINE YELLOW (YELLOW); GLUCOSE, URINE (UA) AUTO NEGATIVE (NEGATIVE); KETONE, URINE AUTO NEGATIVE (NEGATIVE); LEUKOCYTE ESTERASE, URINE AUTO 2+ (NEGATIVE); MUCUS, URINE SMALL (NEGATIVE); NITRITE, URINE AUTO NEGATIVE (NEGATIVE); PROTEIN, URINE AUTO 2+ mg/dL (NEGATIVE); RBC, URINE AUTO 40 /HPF (0-3); SPECIFIC GRAVITY URINE AUTO 1.021 (1.002-1.035); SQUAMOUS EPITHELIAL CELL UR AU 2 /HPF (0-6); UROBILINOGEN, URINE AUTO 0.2 mg/dL (0.0-2.0); WBC, URINE AUTO 85 /HPF (0-3)
== END ==
LOC: M LAB REF 21:03
PROVIDERS: ATTEND Physician Assistant
DX: N39.0 Urinary tract infection, site not specified (principal)

== ENCOUNTER 2020-01-17 07:49 | Emergency (ER) | payer OTHER ==
[~2020-01-17] VITALS: Ht 175.3 cm; Wt 88.6 kg
--- NOTE | 2020-01-17 08:51 | REPVR ---
PROCEDURE INFORMATION: Exam: XR Left Foot Complete Exam date and time: 01/17/2020 8:23 AM Age: 54 years old Clinical indication: Injury or trauma; Other: Hit on door. Pain base of 1st. ; Blunt trauma; Foot; Left; Additional info: Foot caught on door at home, swollen tender TECHNIQUE: Imaging protocol: XR Left foot. Views: 3 or more views. COMPARISON: CR Foot, complete LEFT 07/02/2015 2:14 PM FINDINGS: Bones/joints: Bones are intact. No acute fracture. No dislocation. Small plantar calcaneal spur. Soft tissues: Soft tissue swelling medial midfoot. IMPRESSION: Medial soft tissue swelling. No acute fracture. Electronically signed by: Mason Mario On 01/17/2020 08:51:08 AM
[2020-01-17 09:03] VITALS: BP 132/83
== END 2020-01-17 09:08 | disposition home or self-care (01) ==
LOC: M ED 07:49
DX: M25.572 Pain in left ankle and joints of left foot (principal); M79.89 Other specified soft tissue disorders; E78.5 Hyperlipidemia, unspecified; K21.9 Gastro-esophageal reflux disease without esophagitis; Z88.2 Allergy status to sulfonamides; Z88.5 Allergy status to narcotic agent; Z91.013 Allergy to seafood; Z79.899 Other long term (current) drug therapy; Z79.02 Long term (current) use of antithrombotics/antiplatelets

== ENCOUNTER → 2020-06-09 | Outpatient (CLI) | payer OTHER ==
--- NOTE | 2020-06-09 08:57 | DEXAMM ---
INDICATION: E28.39 ESTROGEN DEFICIENCY. COMPARISON: None. TECHNIQUE: Bone density was measured using dual-energy x-ray absorptionmetry (DEXA). FINDINGS: AP SPINE L1-L4 BMD 1.229 g/cm2 Young Adult T-Score 0.3 Age Matched Z-Score 1.1. LT FEMUR, TOTAL BMD 1.063 g/cm2 Young Adult T-Score 0.4 Age Matched Z-Score 1.1. LT NECK BMD 1.018 g/cm2 Young Adult T-Score -0.1 Age Matched Z-Score 0.9. RT FEMUR, TOTAL BMD 1.039 g/cm2 Young Adult T-Score 0 point Age Matched Z-Score 20.9. RT NECK BMD 0.996 g/cm2 Young Adult T-Score is -0.3 Age Matched Z-Score 0.7. IMPRESSION: There is normal bone density of the spine. There is the normal bone density of the left hip. There is normal bone density of the right hip. FOLLOW-UP: Recommendation for the next bone density exam: 5 years. <Electronically signed by Arnel Hager > 06/09/20 [id number]
== END ==
LOC: M WHC 07:58
PROVIDERS: ATTEND Family Medicine
DX: E28.39 Other primary ovarian failure (principal)

== ENCOUNTER → 2020-08-12 | Outpatient (REF) | payer OTHER ==
[2020-08-12 12:15] LABS: HEMOGLOBIN A1c 5.2 %
[2020-08-12 12:31] LABS: ALBUMIN 3.9 GM/DL (3.2-5.2); ALT/SGPT 27 U/L (12-78); BILIRUBIN,TOTAL 0.4 MG/DL (0.2-1.0); BLOOD UREA NITROGEN 16 MG/DL (7-18); CALCIUM LEVEL 9.8 MG/DL (8.5-10.1); CARBON DIOXIDE LEVEL 28 MEQ/L (21-32); CHLORIDE LEVEL 107 MEQ/L (98-107); CHOLESTEROL LEVEL 206 MG/DL (<200); CHOLESTEROL RISK RATIO 3.678 (<5); CPK CREATINE PHOSPHOKINASE 76 U/L (26-192); FERRITIN 74 NG/ML (8-252); FREE T4 1.05 NG/DL (0.76-1.46); GLOMERULAR FILTRATION RATE > 60.0 (>51); GLUCOSE, FASTING 111 MG/DL (70-100); HDL CHOLESTEROL 56 MG/DL (>40); IRON (FE) 97 UG/DL (50-170); LDL CHOLESTEROL 120 MG/DL (<100); NON-HDL-C 150 MG/DL; PERCENT SATURATION 33.1 % (13.2-45.0); POTASSIUM SERUM 4.2 MEQ/L (3.5-5.1); PTH INTACT 47.8 PG/ML (18.5-88.0); SODIUM LEVEL 141 MEQ/L (136-145); TOTAL 25(OH) VITAMIN D 57.6 NG/ML (30.0-100.0); TOTAL IRON BINDING CAPACITY 293 UG/DL (250-450); TRIGLYCERIDES LEVEL 150 MG/DL (<150)
== END ==
LOC: M SFHCPLAZ 08:01
PROVIDERS: ATTEND Family Medicine
DX: E83.119 Hemochromatosis, unspecified (principal); R73.01 Impaired fasting glucose; E55.9 Vitamin D deficiency, unspecified; E03.9 Hypothyroidism, unspecified

== ENCOUNTER → 2020-08-12 | Outpatient (CLI) | payer OTHER ==
--- NOTE | 2020-08-12 15:02 | REPPI ---
INDICATION: M16.10 HIP ARTHRITIS COMPARISON: None. TECHNIQUE: AP and frog-lateral views of the right hip FINDINGS: Osseous structures, joint spaces, and surrounding soft tissues are essentially age-appropriate. No overt arthritic degenerative changes are appreciated. No evidence for acute or healed injury. IMPRESSION: Age-appropriate right hip radiographs. <Electronically signed by Mason Gage > 08/12/20 [id number]
== END ==
LOC: M PLAIMG 08:02
PROVIDERS: ATTEND Family Medicine
DX: M16.10 Unilateral primary osteoarthritis, unspecified hip (principal)

== ENCOUNTER → 2020-09-15 | Outpatient (CLI) | payer OTHER ==
--- NOTE | 2020-09-15 08:31 | REP ---
INDICATION: HEMACHROMATOSIS COMPARISON: 05/13/2018 TECHNIQUE: Real time brown scale ultrasound examination using curved array transducer. FINDINGS: Liver again demonstrates increased parenchymal echotexture suggesting fatty infiltration and hepatocellular disease. No obvious focal hepatic lesion identified. Pancreas is normal in appearance by ultrasound. The gallbladder is normal and without gallstones, wall thickening, or pericholecystic fluid. No biliary ductal dilatation is appreciated and the common bile duct measures 3.6 mm diameter. Right kidney is normal in reniform shape without hydronephrosis and measures 10.6 x 5.3 x 5.4 cm. Incidental 1.1 cm cyst again noted. No ascites in the visualized right upper quadrant. IMPRESSION: Hepatocellular disease without obvious focal hepatic lesion by ultrasound. <Electronically signed by Mason Gage > 09/15/20 0850
== END ==
LOC: M RAD 07:58
PROVIDERS: ATTEND Family Medicine
DX: E83.119 Hemochromatosis, unspecified (principal)

== ENCOUNTER → 2020-12-09 | Outpatient (CLI) | payer OTHER ==
--- NOTE | 2020-12-10 08:45 | REP ---
INDICATION: SCR MAMMOGRAM. COMPARISON: Multiple TECHNIQUE: Digital screening mammography was cardio bilaterally in the CC and MLO projections using both 2D and 3D modalities and compared to the prior exams. By history, the patient has no complaints of a palpable breast abnormality or other significant breast complaints. FINDINGS: The breasts are unchanged in size and shape. Once again, scattered dense heterogenous nodular fibroglandular elements are seen bilaterally to such a degree that the sensitivity of the mammogram in detecting cancer is decreased. Groups of stable benign appearing calcifications are again seen bilaterally. In the retroareolar region of the right breast slightly inner aspect there is a potential gage density. This is seen best on DBT imaging. No other suspicious features are seen in either breast. The [place] volumetric breast density pattern is C. IMPRESSION: BIRADS/ACR category 0 mammogram. There is a potential gage density seen in the right breast as described above and for which diagnostic digital DBT spot compression views are recommended in the CC and MLO projections along with diagnostic ultrasonography if indicated. This patient's Tyrer-Cuzick lifetime breast cancer risk assessment score is 8.2%. This mammogram was interpreted with the aid of an FDA-approved computer-aided detection system. The patient states she had a clinical breast exam in December 2020. The patient letter being requested is M0. RECOMMENDATION: As above <Electronically signed by Harpreet Hudson > 12/10/20 0844
== END ==
LOC: M WHC 15:24
PROVIDERS: ATTEND Family Medicine
DX: Z12.31 Encounter for screening mammogram for malignant neoplasm of breast (principal)

== ENCOUNTER → 2021-02-10 | Outpatient (CLI) | payer OTHER ==
--- NOTE | 2021-02-10 15:03 | REP ---
INDICATION: RIGHT BREAST ADD VIEWS. COMPARISON: 12/09/2020 as well as other prior exams. TECHNIQUE: Spot compression tomographic images right breast performed as well as focused right breast ultrasound. FINDINGS: The suspected gage density in the right retroareolar region on the exam of 12/09/2020 is not definitely visualized on today's additional views. The breast parenchyma is heterogeneously dense. There is no discrete mass or nodule identified. I see no definite architectural distortion. Focused right retroareolar ultrasound demonstrates mildly dilated ducts with no internal solid nodule. There is an anechoic simple cyst 5 x 4 x 2 mm. IMPRESSION: BIRADS/ACR category 2, benign. No persistent mass or architectural distortion in the right retroareolar region on today's additional mammographic images. By ultrasound there are mildly dilated ducts as well as a simple subcentimeter cyst, with no suspicious solid nodule. This mammogram was interpreted with the aid of an FDA-approved computer-aided detection system. The patient letter being requested is M 1. RECOMMENDATION: Repeat screening mammography recommended 1 year (for women over 40). <Electronically signed by Robbie Steele > 02/10/21 [id number]
== END ==
LOC: M WHC 09:59
PROVIDERS: ATTEND Family Medicine
DX: Z12.31 Encounter for screening mammogram for malignant neoplasm of breast (principal)

== ENCOUNTER → 2021-05-13 | Outpatient (REF) | payer OTHER ==
[2021-05-13 13:20] LABS: APPEARANCE, URINE MANUAL TURBID (CLEAR); COLOR, URINE MANUAL YELLOW (YELLOW); PROTEIN, URINE MANUAL 3+ mg/dL (NEGATIVE); SPECIFIC GRAVITY,URINE MANUAL 1.025 (1.002-1.035)
[2021-05-13 13:21] LABS: BILIRUBIN, URINE MANUAL NEGATIVE (NEGATIVE); BLOOD URINE MANUAL POSITIVE (NEGATIVE); GLUCOSE, URINE (UA) MANUAL NEGATIVE (NEGATIVE); KETONE, URINE MANUAL NEGATIVE (NEGATIVE); LEUKOCYTE ESTERASE, URINE MAN POSITIVE (NEGATIVE); NITRITE, URINE MANUAL NEGATIVE (NEGATIVE); UROBILINOGEN, URINE MANUAL NORMAL (NORMAL)
[2021-05-13 13:33] LABS: BACTERIA, URINE MOD AMOUNT; SQUAMOUS EPITHELIAL CELL URINE SMALL AMOUNT /hpf (SMALL AMT); TRANSITIONAL EPI CELLS, URINE SMALL AMOUNT /hpf
[2021-05-13 13:34] LABS: AMORPHOUS SEDIMENT, URINE LARGE AMOUNT (NEGATIVE); CALCIUM OXALATE CRYSTALS,URINE SMALL AMOUNT /hpf
== END ==
LOC: M SFHCPLAZ 13:05
PROVIDERS: ATTEND Nurse Practitioner Family
DX: N39.0 Urinary tract infection, site not specified (principal)

== ENCOUNTER → 2021-05-23 | Outpatient (CLI) | payer OTHER ==
[2021-05-23 15:22] LABS: APPEARANCE, URINE CLEAR (CLEAR); BACTERIA, URINE AUTO 1+ (NEGATIVE); BILIRUBIN, URINE AUTO NEGATIVE (NEGATIVE); BLOOD, URINE BLOOD 2+ (NEGATIVE); COLOR, URINE STRAW (YELLOW); GLUCOSE, URINE (UA) AUTO NEGATIVE (NEGATIVE); KETONE, URINE AUTO NEGATIVE (NEGATIVE); LEUKOCYTE ESTERASE, URINE AUTO NEGATIVE (NEGATIVE); NITRITE, URINE AUTO NEGATIVE (NEGATIVE); PROTEIN, URINE AUTO NEGATIVE (NEGATIVE); RBC, URINE AUTO 2 /HPF (0-3); SPECIFIC GRAVITY URINE AUTO 1.004 (1.002-1.035); SQUAMOUS EPITHELIAL CELL UR AU 0 /HPF (0-6); UROBILINOGEN, URINE AUTO 0.2 mg/dL (0.0-2.0); WBC, URINE AUTO 0 /HPF (0-3)
== END ==
LOC: M PLALAB 12:34
PROVIDERS: ATTEND Nurse Practitioner Family
DX: N39.0 Urinary tract infection, site not specified (principal)

== ENCOUNTER → 2021-07-19 | Outpatient (CLI) | payer OTHER ==
[2021-07-19 11:10] LABS: INR 0.94
[2021-07-19 11:11] LABS: PARTIAL THROMBOPLASTIN TIME 35.4 SECONDS (25.9-37.0)
[2021-07-19 11:20] LABS: ALBUMIN 3.7 GM/DL (3.2-5.2); ALT/SGPT 30 U/L (12-78); BILIRUBIN,TOTAL 0.4 MG/DL (0.2-1.0); BLOOD UREA NITROGEN 13 MG/DL (7-18); CALCIUM LEVEL 9.3 MG/DL (8.5-10.1); CARBON DIOXIDE LEVEL 29 MEQ/L (21-32); CHLORIDE LEVEL 108 MEQ/L (98-107); CREATININE FOR GFR 0.56 MG/DL (0.55-1.30); FERRITIN 77 NG/ML (8-252); FREE T4 0.88 NG/DL (0.76-1.46); GLOMERULAR FILTRATION RATE > 60.0 (>51); GLUCOSE, FASTING 85 MG/DL (70-100); IRON (FE) 119 UG/DL (50-170); PERCENT SATURATION 43.8 % (13.2-45.0); POTASSIUM SERUM 4.4 MEQ/L (3.5-5.1); SODIUM LEVEL 143 MEQ/L (136-145); TOTAL IRON BINDING CAPACITY 272 UG/DL (250-450); TOTAL PROTEIN 6.4 GM/DL (6.4-8.2)
[2021-07-19 11:22] LABS: PTH INTACT 51.3 PG/ML (18.5-88.0); TOTAL 25(OH) VITAMIN D 53.1 NG/ML (30.0-100.0)
[2021-07-21 02:07] LABS: INSULIN LEVEL 7.2 uIU/mL (2.6-24.9)
== END ==
LOC: M PLALAB 06:41
PROVIDERS: ATTEND Family Medicine
DX: M47.816 Spondylosis without myelopathy or radiculopathy, lumbar region (principal); R73.01 Impaired fasting glucose; E55.9 Vitamin D deficiency, unspecified; E03.9 Hypothyroidism, unspecified

== ENCOUNTER 2021-07-26 07:12 | Outpatient (RCR) | payer OTHER | END 2021-07-30 | LOC: M PT 07:12 | PROVIDERS: ATTEND Family Medicine | DX: M54.59 Other low back pain (principal) ==

== ENCOUNTER → 2021-08-30 | Outpatient (RCR) | payer OTHER | LOC: M PT 08-01 07:37 | PROVIDERS: ATTEND Family Medicine | DX: M54.50 Low back pain, unspecified (principal) ==

== ENCOUNTER → 2021-09-19 | Outpatient (CLI) | payer OTHER | LOC: M WHC 08:51 | PROVIDERS: ATTEND Family Medicine | DX: E83.119 Hemochromatosis, unspecified (principal) ==

== ENCOUNTER 2021-09-23 07:44 | Outpatient (RCR) | payer OTHER | END 2021-09-29 | LOC: M PT 07:44 | PROVIDERS: ATTEND Family Medicine | DX: M54.50 Low back pain, unspecified (principal) ==

== ENCOUNTER → 2021-10-06 | Outpatient (CLI) | payer OTHER ==
[2021-10-06 13:46] LABS: BASO % 0.3 % (0.0-1.0); EOS % 0.6 % (0.0-3.0); HEMATOCRIT 45.1 % (36.0-47.0); HEMOGLOBIN 14.8 g/dl (12.0-15.5); LYMPH % 30.9 % (24.0-44.0); MEAN CORPUSCULAR HEMOGLOBIN 30.8 pg (27.0-33.0); MEAN CORPUSCULAR HGB CONC 32.8 g/dl (32.0-36.5); MONO # 0.5 10^3/uL (0.0-0.8); MONO % 7.6 % (2.0-8.0); NEUTROPHILS # 3.9 10^3/uL (1.5-8.5); NEUTROPHILS % 60.4 % (36.0-66.0); PLATELET COUNT, AUTOMATED 254 10^3/uL (150-450); WHITE BLOOD COUNT 6.4 10^3/uL (4.0-10.0)
[2021-10-06 13:51] LABS: APPEARANCE, URINE CLEAR (CLEAR); BACTERIA, URINE AUTO NEGATIVE (NEGATIVE); BILIRUBIN, URINE AUTO NEGATIVE (NEGATIVE); BLOOD, URINE BLOOD 3+ (NEGATIVE); COLOR, URINE YELLOW (YELLOW); GLUCOSE, URINE (UA) AUTO NEGATIVE (NEGATIVE); GRANULAR CAST, URINE AUTO 1 /LPF; KETONE, URINE AUTO NEGATIVE (NEGATIVE); LEUKOCYTE ESTERASE, URINE AUTO NEGATIVE (NEGATIVE); MUCUS, URINE SMALL (NEGATIVE); NITRITE, URINE AUTO NEGATIVE (NEGATIVE); PROTEIN, URINE AUTO 2+ mg/dL (NEGATIVE); RBC, URINE AUTO 31 /HPF (0-3); SQUAMOUS EPITHELIAL CELL UR AU 1 /HPF (0-6); UROBILINOGEN, URINE AUTO 0.2 mg/dL (0.0-2.0); WBC, URINE AUTO 1 /HPF (0-3)
[2021-10-06 14:21] LABS: ERYTHROCYTE SEDIMENTATION RATE 7 mm/hr (0-30)
[2021-10-06 14:24] LABS: ALBUMIN 3.7 GM/DL (3.2-5.2); ALT/SGPT 24 U/L (12-78); BILIRUBIN,TOTAL 0.6 MG/DL (0.2-1.0); BLOOD UREA NITROGEN 18 MG/DL (7-18); CALCIUM LEVEL 9.3 MG/DL (8.5-10.1); CARBON DIOXIDE LEVEL 29 MEQ/L (21-32); CHLORIDE LEVEL 107 MEQ/L (98-107); CREATININE FOR GFR 0.63 MG/DL (0.55-1.30); FREE T4 0.94 NG/DL (0.76-1.46); GLOMERULAR FILTRATION RATE > 60.0 (>51); GLUCOSE, FASTING 80 MG/DL (70-100); IRON (FE) 103 UG/DL (50-170); MAGNESIUM LEVEL 1.9 MG/DL (1.8-2.4); POTASSIUM SERUM 4.4 MEQ/L (3.5-5.1); SODIUM LEVEL 138 MEQ/L (136-145); TOTAL PROTEIN 6.6 GM/DL (6.4-8.2)
[2021-10-06 14:32] LABS: VITAMIN B12 LEVEL 327 PG/ML (247-911)
== END ==
LOC: M PLALAB 10:46
PROVIDERS: ATTEND Physician Assistant
DX: R43.2 Parageusia (principal)

== ENCOUNTER → 2022-01-02 | Outpatient (CLI) | payer OTHER ==
[2022-01-02 13:16] LABS: COLOR, URINE MANUAL DK YELLOW (YELLOW)
[2022-01-02 13:17] LABS: BASO % 0.4 % (0.0-1.0); BILIRUBIN, URINE MANUAL NEGATIVE (NEGATIVE); BLOOD URINE MANUAL POSITIVE (NEGATIVE); EOS # 0.1 10^3/uL (0.0-0.5); EOS % 0.5 % (0.0-3.0); GLUCOSE, URINE (UA) MANUAL NEGATIVE (NEGATIVE); HEMATOCRIT 44.6 % (36.0-47.0); HEMOGLOBIN 14.5 g/dl (12.0-15.5); KETONE, URINE MANUAL NEGATIVE (NEGATIVE); LEUKOCYTE ESTERASE, URINE MAN POSITIVE (NEGATIVE); LYMPH # 2.1 10^3/uL (1.5-5.0); LYMPH % 21.5 % (24.0-44.0); MEAN CORPUSCULAR HEMOGLOBIN 30.7 pg (27.0-33.0); MEAN CORPUSCULAR HGB CONC 32.5 g/dl (32.0-36.5); MEAN CORPUSCULAR VOLUME 94.5 fl (80.0-96.0); MONO # 0.7 10^3/uL (0.0-0.8); MONO % 6.5 % (2.0-8.0); NEUTROPHILS % 70.9 % (36.0-66.0); NITRITE, URINE MANUAL NEGATIVE (NEGATIVE); PLATELET COUNT, AUTOMATED 252 10^3/uL (150-450); PROTEIN, URINE MANUAL 2+ mg/dL (NEGATIVE); RED BLOOD COUNT 4.72 10^6/uL (4.00-5.40); UROBILINOGEN, URINE MANUAL 1 MG mg/dl (NORMAL); WHITE BLOOD COUNT 9.9 10^3/uL (4.0-10.0)
[2022-01-02 13:33] LABS: APPEARANCE, URINE MANUAL CLOUDY (CLEAR); WBC, URINE TNTC /hpf (0-3)
[2022-01-02 13:34] LABS: BACTERIA, URINE SMALL AMOUNT; HYALINE CAST, URINE NONE SEEN /lpf (0-1); SQUAMOUS EPITHELIAL CELL URINE SMALL AMOUNT /hpf (SMALL AMT)
[2022-01-02 13:35] LABS: CALCIUM OXALATE CRYSTALS,URINE MOD AMOUNT /hpf
[2022-01-02 14:23] LABS: ALBUMIN 3.7 GM/DL (3.2-5.2); ALT/SGPT 32 U/L (12-78); BILIRUBIN,TOTAL 0.5 MG/DL (0.2-1.0); BLOOD UREA NITROGEN 18 MG/DL (7-18); CALCIUM LEVEL 9.6 MG/DL (8.5-10.1); CARBON DIOXIDE LEVEL 31 MEQ/L (21-32); CHLORIDE LEVEL 106 MEQ/L (98-107); CREATININE FOR GFR 0.71 MG/DL (0.55-1.30); FREE T4 0.92 NG/DL (0.76-1.46); GLOMERULAR FILTRATION RATE > 60.0 (>51); GLUCOSE, FASTING 90 MG/DL (70-100); POTASSIUM SERUM 4.7 MEQ/L (3.5-5.1); SODIUM LEVEL 140 MEQ/L (136-145); TOTAL PROTEIN 6.8 GM/DL (6.4-8.2)
[2022-01-02 14:35] LABS: HEMOGLOBIN A1c 5.2 %
== END ==
LOC: M PLALAB 09:07
PROVIDERS: ATTEND Family Medicine
DX: E78.5 Hyperlipidemia, unspecified (principal); R73.01 Impaired fasting glucose; N39.0 Urinary tract infection, site not specified

== ENCOUNTER → 2022-01-17 | Outpatient (CLI) | payer OTHER | LOC: M PLAIMG 12:34 | PROVIDERS: ATTEND Family Medicine | DX: N20.0 Calculus of kidney (principal) ==

== ENCOUNTER → 2022-01-20 | Outpatient (REF) | payer OTHER ==
[2022-01-20 14:45] LABS: APPEARANCE, URINE MANUAL CLEAR (CLEAR); COLOR, URINE MANUAL YELLOW (YELLOW)
[2022-01-20 14:46] LABS: BILIRUBIN, URINE MANUAL NEGATIVE (NEGATIVE); BLOOD URINE MANUAL POSITIVE (NEGATIVE); GLUCOSE, URINE (UA) MANUAL NEGATIVE (NEGATIVE); KETONE, URINE MANUAL NEGATIVE (NEGATIVE); LEUKOCYTE ESTERASE, URINE MAN NEGATIVE (NEGATIVE); NITRITE, URINE MANUAL NEGATIVE (NEGATIVE); PROTEIN, URINE MANUAL 2+ mg/dL (NEGATIVE); SPECIFIC GRAVITY,URINE MANUAL 1.015 (1.002-1.035); UROBILINOGEN, URINE MANUAL NORMAL (NORMAL)
[2022-01-20 14:53] LABS: CALCIUM,RANDOM URINE 25.1 MG/DL; TOTAL PROTEIN,RANDOM URINE 109.9 MG/DL (0.0-12.0)
[2022-01-20 15:45] LABS: CALCIUM OXALATE CRYSTALS,URINE SMALL AMOUNT /hpf; SQUAMOUS EPITHELIAL CELL URINE SMALL AMOUNT /hpf (SMALL AMT)
[2022-01-20 15:46] LABS: AMORPHOUS SEDIMENT, URINE MOD AMOUNT (NEGATIVE); BACTERIA, URINE MOD AMOUNT; MUCUS, URINE SMALL AMOUNT (NEGATIVE)
== END ==
LOC: M SFHCPLAZ 13:04
PROVIDERS: ATTEND Physician Assistant
DX: R31.9 Hematuria, unspecified (principal); R80.9 Proteinuria, unspecified; R35.0 Frequency of micturition

== ENCOUNTER → 2022-02-03 | Outpatient (REF) | payer OTHER ==
[~2022-02-03] MED LIST changes: +CLOP75TA99 PO; -PLAV1TAB2 PO
[2022-02-03 19:18] LABS: APPEARANCE, URINE MANUAL CLEAR (CLEAR); COLOR, URINE MANUAL YELLOW (YELLOW)
[2022-02-03 19:19] LABS: BILIRUBIN, URINE MANUAL NEGATIVE (NEGATIVE); BLOOD URINE MANUAL POSITIVE (NEGATIVE); GLUCOSE, URINE (UA) MANUAL NEGATIVE (NEGATIVE); KETONE, URINE MANUAL NEGATIVE (NEGATIVE); LEUKOCYTE ESTERASE, URINE MAN NEGATIVE (NEGATIVE); NITRITE, URINE MANUAL NEGATIVE (NEGATIVE); PROTEIN, URINE MANUAL TRACE mg/dL (NEGATIVE); UROBILINOGEN, URINE MANUAL NORMAL (NORMAL)
[2022-02-03 20:14] LABS: BACTERIA, URINE SMALL AMOUNT; HYALINE CAST, URINE NONE SEEN /lpf (0-1); MUCUS, URINE MOD AMOUNT (NEGATIVE); RBC, URINE 40-50 /hpf (0-3); SQUAMOUS EPITHELIAL CELL URINE SMALL AMOUNT /hpf (SMALL AMT)
== END ==
LOC: M SMT 17:36
PROVIDERS: ATTEND Physician Assistant
DX: R35.0 Frequency of micturition (principal)

== ENCOUNTER → 2022-03-01 | Outpatient (REF) | payer OTHER ==
[2022-03-02 18:32] LABS: TOTAL PROTEIN,RANDOM URINE 60.5 MG/DL (0.0-14.0)
[2022-03-02 18:35] LABS: CREATININE,RANDOM URINE 122.5 MG/DL
== END ==
LOC: M LAB REF 16:50
PROVIDERS: ATTEND Internal Medicine Nephrology
DX: R80.9 Proteinuria, unspecified (principal)

== ENCOUNTER → 2022-03-09 | Outpatient (CLI) | payer OTHER ==
[~2022-03-09] MED LIST changes: +ISOVUE-370 76% 100ML VIAL As Ordered ONE
== END ==
LOC: M RAD 16:51
PROVIDERS: ATTEND Urology
DX: R31.29 Other microscopic hematuria (principal)

== ENCOUNTER → 2022-03-15 | Outpatient (CLI) | payer OTHER ==
[~2022-03-15] MED LIST changes: -ISOVUE-370 76% 100ML VIAL As Ordered ONE
== END ==
LOC: M WHC 09:11
PROVIDERS: ATTEND Advanced Practice Midwife
DX: Z12.31 Encounter for screening mammogram for malignant neoplasm of breast (principal)

== ENCOUNTER → 2022-03-21 | Outpatient (CLI) | payer OTHER | LOC: M WHC 12:55 | PROVIDERS: ATTEND Advanced Practice Midwife | DX: Z12.31 Encounter for screening mammogram for malignant neoplasm of breast (principal); N64.89 Other specified disorders of breast ==

== ENCOUNTER → 2022-04-06 | Outpatient (CLI) | payer OTHER ==
[~2022-04-06] MED LIST changes: +ALLE10TA62 PO; +PHEN1TAB73 PO
== END ==
LOC: M PLALAB 11:13
PROVIDERS: ATTEND Surgery
DX: C50.919 Malignant neoplasm of unspecified site of unspecified female breast (principal)

== ENCOUNTER → 2022-04-11 | Outpatient (CLI) | payer OTHER ==
[2022-04-11 13:09] LABS: BASO # 0.1 10^3/uL (0.0-0.2); BASO % 0.6 % (0.0-1.0); EOS % 0.4 % (0.0-3.0); HEMATOCRIT 45.5 % (36.0-47.0); HEMOGLOBIN 14.6 g/dl (12.0-15.5); LYMPH # 2.3 10^3/uL (1.5-5.0); LYMPH % 28.3 % (24.0-44.0); MEAN CORPUSCULAR HEMOGLOBIN 30.1 pg (27.0-33.0); MEAN CORPUSCULAR HGB CONC 32.1 g/dl (32.0-36.5); MEAN CORPUSCULAR VOLUME 93.8 fl (80.0-96.0); MONO # 0.6 10^3/uL (0.0-0.8); NEUTROPHILS % 62.4 % (36.0-66.0); PLATELET COUNT, AUTOMATED 285 10^3/uL (150-450); RED BLOOD COUNT 4.85 10^6/uL (4.00-5.40)
[2022-04-11 13:19] LABS: INR 0.99; PROTHROMBIN TIME 13.3 SECONDS (12.5-14.5)
[2022-04-11 13:20] LABS: PARTIAL THROMBOPLASTIN TIME 32.4 SECONDS (24.8-34.2)
[2022-04-11 13:31] LABS: ALBUMIN 4.1 G/DL (3.2-5.2); ALKALINE PHOSPHATASE 74 U/L (46-116); ALT/SGPT 25 U/L (7.0-40); AST/SGOT 15 U/L (<34); BILIRUBIN,TOTAL 0.4 MG/DL (0.3-1.2); BLOOD UREA NITROGEN 21 MG/DL (9-23); CARBON DIOXIDE LEVEL 32 MMOL/L (20-31); CHLORIDE LEVEL 104 MMOL/L (98-107); CREATININE FOR GFR 0.68 MG/DL (0.55-1.30); GLOMERULAR FILTRATION RATE > 60.0 (>51); GLUCOSE, FASTING 111 MG/DL (60-100); POTASSIUM SERUM 4.5 MMOL/L (3.5-5.1); SODIUM LEVEL 143 MMOL/L (136-145); TOTAL PROTEIN 6.9 G/DL (5.7-8.2)
== END ==
LOC: M PLALAB 10:32
PROVIDERS: ATTEND Family Medicine
DX: Z01.818 Encounter for other preprocedural examination (principal)

== ENCOUNTER → 2022-04-13 | Outpatient (CLI) | payer OTHER | LOC: M LABSMTC 09:38 | PROVIDERS: ATTEND Anesthesiology | DX: Z01.818 Encounter for other preprocedural examination (principal); Z11.52 Encounter for screening for COVID-19 ==

== ENCOUNTER → 2022-04-13 | Outpatient (CLI) | payer OTHER ==
[~2022-04-13] MED LIST changes: +PROHANCE 279.3MG/ML 15ML VIAL As Ordered ONE; +PROHANCE 279.3MG/ML 5ML VIAL As Ordered ONE
== END ==
LOC: M RAD 14:52
PROVIDERS: ATTEND Surgery
DX: C50.919 Malignant neoplasm of unspecified site of unspecified female breast (principal)
CPT/HCPCS: 77049; A9576

== ENCOUNTER → 2022-04-25 | Outpatient (CLI) | payer OTHER ==
[~2022-04-25] MED LIST changes: -PROHANCE 279.3MG/ML 15ML VIAL As Ordered ONE; -PROHANCE 279.3MG/ML 5ML VIAL As Ordered ONE
== END ==
LOC: M WHC 13:03
PROVIDERS: ATTEND Surgery
DX: R92.8 Other abnormal and inconclusive findings on diagnostic imaging of breast (principal)

== ENCOUNTER → 2022-04-25 | Outpatient (CLI) | payer OTHER | LOC: M WHCPRO 13:06 | PROVIDERS: ATTEND Surgery | DX: R92.8 Other abnormal and inconclusive findings on diagnostic imaging of breast (principal); Z53.9 Procedure and treatment not carried out, unspecified reason ==

== ENCOUNTER → 2022-05-04 | Outpatient (CLI) | payer OTHER | LOC: M LABSMTC 09:25 | PROVIDERS: ATTEND Anesthesiology | DX: Z01.818 Encounter for other preprocedural examination (principal) ==

== ENCOUNTER 2022-05-09 06:24 | Day surgery (SDC) | payer OTHER ==
[~2022-05-09] VITALS: Ht 175.3 cm; Wt 88.9 kg
[~2022-05-09 06:24] MED LIST changes: +HEPARIN SOD (PORCINE) 5000UNITS/ML 1ML VIAL/SYRINGE SQ ONE; +ceFAZolin SOD 2 GM in IV 1 EA IV ONE
[2022-05-09] MEDS ORDERED: GLYCOPYRROLATE INJ 0.2 MG/ML 2 ML VIAL As Ordered ONE (08:09)
[2022-05-09] MEDS ORDERED: propofoL 200 MG/20 ML VIAL As Ordered ONE ×2 (08:11→12:45)
[2022-05-09] MEDS ORDERED: ONDANSETRON 4MG 2ML VIAL As Ordered ONE (08:11)
[2022-05-09] MEDS ORDERED: LIDOCAINE 2% 100MG/5ML SDV (FOR ANES.) As Ordered ONE (08:11)
[2022-05-09] MEDS ORDERED: fentaNYL 100 MCG/2 ML INJECTION As Ordered ONE (08:12)
[2022-05-09] MEDS ORDERED: ceFAZolin SOD 2 GM in IV 1 EA IV ONE (09:25)
[2022-05-09] MEDS ORDERED: HEPARIN SOD (PORCINE) 5000UNITS/ML 1ML VIAL/SYRINGE SQ ONE (09:35)
[2022-05-09] MEDS ORDERED: SCOPOLAMINE 1MG TRANSDERMAL PATCH TOP ONE (10:00)
[2022-05-09] MEDS ORDERED: LIDOCAINE 1% SDV 30ML VIAL As Ordered ONE (11:11)
[2022-05-09] MEDS ORDERED: BUPIVACAINE LIPOSOME/PF 1.3% 20ML VIAL (13.3MG/ML)(EXPAREL) As Ordered ONE (11:12)
[2022-05-09] MEDS ORDERED: ACETAMINOPHEN 1000MG 100ML IV BAG As Ordered ONE (11:14)
[2022-05-09] MEDS ORDERED: METOCLOPRAMIDE INJ 10MG/2ML VIAL As Ordered ONE (11:15)
[2022-05-09] MEDS ORDERED: BUPIVACAINE HCL 0.25% 30ML VIAL As Ordered ONE (11:19)
[2022-05-09] MEDS ORDERED: ESMOLOL INJ 100MG/10ML VIAL As Ordered ONE (12:49)
[2022-05-09] MEDS ORDERED: ONDANSETRON 4MG 2ML VIAL IV PRN (14:00)
[2022-05-09] MEDS ORDERED: HYDROMORPHONE HCL 0.5 MG/ 0.5 ML SYRINGE IV PRN (14:00)
[2022-05-09] MEDS ORDERED: oxyCODONE 5MG TAB PO PRN (14:00)
[2022-05-09] MEDS ORDERED: LR 1,000 ML IV SCH (14:00)
[2022-05-09 16:10] VITALS: BP 126/61
== END 2022-05-09 16:20 | disposition home or self-care (01) ==
LOC: M SDC 06:24
PROVIDERS: ATTEND Surgery
DX: D05.02 Lobular carcinoma in situ of left breast (principal); C77.3 Secondary and unspecified malignant neoplasm of axilla and upper limb lymph nodes; E83.119 Hemochromatosis, unspecified; Z95.828 Presence of other vascular implants and grafts; E78.00 Pure hypercholesterolemia, unspecified; M47.9 Spondylosis, unspecified; Z88.5 Allergy status to narcotic agent; Z88.2 Allergy status to sulfonamides; Z91.013 Allergy to seafood; Z79.899 Other long term (current) drug therapy; Z79.02 Long term (current) use of antithrombotics/antiplatelets
CPT/HCPCS: 19301; 36415; 38525; 76942; 78195; 86850; 86900; 86901; 88307; A4648; A9520; C9290; J0690; J1100; J2405; J2765; J3010

== ENCOUNTER → 2022-05-25 | Outpatient (CLI) | payer OTHER ==
[~2022-05-25] MED LIST changes: -HEPARIN SOD (PORCINE) 5000UNITS/ML 1ML VIAL/SYRINGE SQ ONE; -ceFAZolin SOD 2 GM in IV 1 EA IV ONE
== END ==
LOC: M ONCR 10:42
PROVIDERS: ATTEND Specialist
DX: C50.212 Malignant neoplasm of upper-inner quadrant of left female breast (principal); C77.3 Secondary and unspecified malignant neoplasm of axilla and upper limb lymph nodes; G43.909 Migraine, unspecified, not intractable, without status migrainosus; I72.2 Aneurysm of renal artery; J30.9 Allergic rhinitis, unspecified; K42.9 Umbilical hernia without obstruction or gangrene; K57.30 Diverticulosis of large intestine without perforation or abscess without bleeding; M51.36 Other intervertebral disc degeneration, lumbar region; N80.9 Endometriosis, unspecified; N83.209 Unspecified ovarian cyst, unspecified side; Z79.02 Long term (current) use of antithrombotics/antiplatelets; Z80.3 Family history of malignant neoplasm of breast; Z86.79 Personal history of other diseases of the circulatory system; Z88.1 Allergy status to other antibiotic agents; Z88.2 Allergy status to sulfonamides; Z88.5 Allergy status to narcotic agent; Z86.018 Personal history of other benign neoplasm; Z91.013 Allergy to seafood

== ENCOUNTER → 2022-05-29 | Outpatient (CLI) | payer OTHER | LOC: M PLARAD 09:14 | PROVIDERS: ATTEND Surgery | DX: C50.919 Malignant neoplasm of unspecified site of unspecified female breast (principal); C50.212 Malignant neoplasm of upper-inner quadrant of left female breast; Z17.0 Estrogen receptor positive status [ER+] | CPT/HCPCS: 78815; A9552 ==

== ENCOUNTER 2022-06-07 08:21 | Outpatient (RCR) | payer OTHER ==
[~2022-06-07 08:21] MED LIST changes: -VITA80004 PO
[2022-06-07] MEDS ORDERED: DRIS50003 PO (08:48)
[2022-06-07] MEDS ORDERED: VITA80004 PO (08:48)
[2022-06-13] MEDS ORDERED: VITA1CAP21 PO (19:16)
[2022-06-13] MEDS ORDERED: B-12100010 PO (19:16)
== END 2022-06-30 ==
LOC: M PT 08:21
PROVIDERS: ATTEND Surgery
DX: C50.919 Malignant neoplasm of unspecified site of unspecified female breast (principal); I89.0 Lymphedema, not elsewhere classified

== ENCOUNTER → 2022-06-07 | Outpatient (CLI) | payer OTHER ==
[~2022-06-07] MED LIST changes: +B-12100010 PO; +VITA1CAP21 PO; +VITA80004 PO
[2022-06-07 11:39] LABS: INR 0.91; PROTHROMBIN TIME 12.4 SECONDS (12.5-14.5)
[2022-06-07 11:40] LABS: PARTIAL THROMBOPLASTIN TIME 30.7 SECONDS (24.8-34.2)
== END ==
LOC: M PLALAB 07:59
PROVIDERS: ATTEND Internal Medicine Medical Oncology
DX: C50.919 Malignant neoplasm of unspecified site of unspecified female breast (principal)

== ENCOUNTER → 2022-06-07 | Outpatient (CLI) | payer OTHER ==
[~2022-06-07] MED LIST changes: -B-12100010 PO; -VITA1CAP21 PO
[2022-06-07 11:28] LABS: HEMATOCRIT 43.6 % (36.0-47.0)
[2022-06-07 11:45] LABS: HEMOGLOBIN A1c 5.4 % (4.0-6.0)
[2022-06-07 12:04] LABS: CHOLESTEROL RISK RATIO 3.39 (<5); LDL CHOLESTEROL 69.4 MG/DL (<100); PERCENT SATURATION 39.9 % (13.2-45.0)
[2022-06-08 20:11] LABS: APOLIPOPROTEIN A-1 147 mg/dL (116-209); APOLIPOPROTEIN B 74 mg/dL (<90); APOLIPOPROTEIN B/A-1 RATIO 0.5 ratio (0.0-0.6); INSULIN LEVEL 14.8 uIU/mL (2.6-24.9)
== END ==
LOC: M PLALAB 08:01
PROVIDERS: ATTEND Family Medicine
DX: E78.5 Hyperlipidemia, unspecified (principal)

== ENCOUNTER → 2022-06-09 | Outpatient (CLI) | payer OTHER ==
[~2022-06-09] MED LIST changes: +VITA80004 PO
== END ==
LOC: M LABSMTC 09:28
PROVIDERS: ATTEND Anesthesiology
DX: Z01.812 Encounter for preprocedural laboratory examination (principal); Z20.822 Contact with and (suspected) exposure to COVID-19

== ENCOUNTER 2022-06-13 08:49 | Observation (INO) | payer OTHER ==
[~2022-06-13] VITALS: Ht 175.3 cm; Wt 85.7 kg
[~2022-06-13 08:49] MED LIST changes: +HEPARIN SOD (PORCINE) 5000UNITS/ML 1ML VIAL/SYRINGE SQ ONE; +NS 1,000 ML IV ONE; +ceFAZolin SOD 2 GM in IV 1 EA IV ONE
[2022-06-13] MEDS ORDERED: LIDOCAINE 1% SDV 30ML VIAL As Ordered ONE (09:40)
[2022-06-13] MEDS ORDERED: LR 1,000 ML IV SCH (09:40)
[2022-06-13] MEDS ORDERED: BUPIVACAINE HCL 0.25% 30ML VIAL As Ordered ONE (09:40)
[2022-06-13] MEDS ORDERED: ISOSULFAN BLUE(LYMPHAZURIN) 1% 50MG/5ML VIAL As Ordered ONE (09:41)
[2022-06-13] MEDS ORDERED: MIDAZOLAM INJ 2MG/2ML VIAL As Ordered ONE (09:48)
[2022-06-13] MEDS ORDERED: fentaNYL 100 MCG/2 ML INJECTION As Ordered ONE (09:48)
[2022-06-13] MEDS ORDERED: ACETAMINOPHEN 1000MG 100ML IV BAG As Ordered ONE (09:48)
[2022-06-13] MEDS ORDERED: SUGAMMADEX SODIUM 500 MG/5 ML VIAL (BRIDION) As Ordered ONE (09:49)
[2022-06-13] MEDS ORDERED: ROCURONIUM BROMIDE 50MG/5ML VIAL As Ordered ONE (09:49)
[2022-06-13] MEDS ORDERED: SUCCINYLCHOLINE 100MG/5ML SYRINGE As Ordered ONE (09:49)
[2022-06-13] MEDS ORDERED: ONDANSETRON 4MG 2ML VIAL As Ordered ONE (09:49)
[2022-06-13] MEDS ORDERED: propofoL 200 MG/20 ML VIAL As Ordered ONE (09:50)
[2022-06-13] MEDS ORDERED: SCOPOLAMINE 1MG TRANSDERMAL PATCH As Ordered ONE (10:00)
[2022-06-13] MEDS ORDERED: SCOPOLAMINE 1MG TRANSDERMAL PATCH TOP ONE (10:00)
[2022-06-13] MEDS ORDERED: HYDROmorphone HCL 2MG/ML 1ML VIAL As Ordered ONE (10:18)
[2022-06-13] MEDS ORDERED: BUPIVACAINE LIPOSOME/PF 1.3% 20ML VIAL (13.3MG/ML)(EXPAREL) As Ordered ONE (12:40)
[2022-06-13] MEDS ORDERED: BUPIVACAINE HCL 0.25% 10ML VIAL As Ordered ONE (12:40)
[2022-06-13] MEDS ORDERED: PHENYLephrine 500MCG 5ML (100MCG/ML) SYRINGE As Ordered ONE (13:16)
[2022-06-13] MEDS ORDERED: ePHEDrine SULFATE 25 MG/5 ML(5MG/ML) SYRINGE As Ordered ONE (13:16)
[2022-06-13] MEDS ORDERED: ceFAZolin 2 GM/D5W 50 ML IV BAG As Ordered ONE (14:05)
[2022-06-13] MEDS ORDERED: ONDANSETRON 4MG 2ML VIAL IV PRN (16:25)
[2022-06-13] MEDS ORDERED: MORPHINE 2 MG/ML 1ML VIAL IV PRN (16:50)
[2022-06-13] MEDS ORDERED: oxyCODONE 5MG TAB PO PRN (16:50)
[2022-06-13] MEDS: LR 1,000 ML IV SCH (16:57)
[2022-06-13] MEDS: ACETAMINOPHEN TAB 650MG DOSE (2X325MG) PO PRN (17:14)
[2022-06-13 18:00] VITALS: BP 112/63
[2022-06-13 18:30] VITALS: BP 120/64
[2022-06-13] MEDS ORDERED: VITA1CAP21 PO (19:16)
[2022-06-13] MEDS ORDERED: B-12100010 PO (19:16)
[2022-06-13] MEDS ORDERED: HOME MED LIST COMPLETE! XX SCH (19:20)
[2022-06-13 19:56] VITALS: BP 142/77
[2022-06-13] MEDS: ceFAZolin SOD 2 GM in IV 1 EA IV SCH (21:22)
[2022-06-13] MEDS: HEPARIN SOD (PORCINE) 5000UNITS/ML 1ML VIAL/SYRINGE SQ SCH (21:23)
[2022-06-13 22:51] VITALS: BP 122/65
[2022-06-14] MEDS: ACETAMINOPHEN TAB 650MG DOSE (2X325MG) PO PRN ×3 (01:44→13:59)
[2022-06-14 02:48] VITALS: BP 111/79
[2022-06-14] MEDS: LR 1,000 ML IV SCH (02:52)
[2022-06-14] MEDS: ceFAZolin SOD 2 GM in IV 1 EA IV SCH (05:33)
[2022-06-14] MEDS: HEPARIN SOD (PORCINE) 5000UNITS/ML 1ML VIAL/SYRINGE SQ SCH (05:33)
[2022-06-14 06:25] VITALS: BP 116/75
== END 2022-06-14 14:05 | disposition home or self-care (01) ==
LOC: M SDC 08:49 → M MS5PR 16:23
PROVIDERS: ADMIT Surgery; ATTEND Surgery
DX: C50.012 Malignant neoplasm of nipple and areola, left female breast (principal); E78.00 Pure hypercholesterolemia, unspecified; Z88.4 Allergy status to anesthetic agent; Z88.2 Allergy status to sulfonamides; Z88.5 Allergy status to narcotic agent; Z88.8 Allergy status to other drugs, medicaments and biological substances; Z91.013 Allergy to seafood; Z79.899 Other long term (current) drug therapy; Z79.02 Long term (current) use of antithrombotics/antiplatelets
CPT/HCPCS: 19302; 36415; 38900; 86850; 88305; 88307; 96365; 96372; 96375; 96376; C9290; J0131; J0330; J0690; J1100; J1170; J1644; J2250; J2270; J2370; J2405; J3010; Q9968; S0020

== ENCOUNTER → 2022-06-22 | Outpatient (CLI) | payer OTHER ==
[~2022-06-22] MED LIST changes: +B-12100010 PO; -HEPARIN SOD (PORCINE) 5000UNITS/ML 1ML VIAL/SYRINGE SQ ONE; -NS 1,000 ML IV ONE; +ONDA-84 PO; +PROC10TA5 PO; +VITA1CAP21 PO; -ceFAZolin SOD 2 GM in IV 1 EA IV ONE
== END ==
LOC: M CARPUL 14:17
PROVIDERS: ATTEND Internal Medicine Medical Oncology
DX: I42.7 Cardiomyopathy due to drug and external agent (principal); C50.912 Malignant neoplasm of unspecified site of left female breast

== ENCOUNTER → 2022-06-26 | Outpatient (CLI) | payer OTHER ==
[~2022-06-26] MED LIST changes: -ONDA-84 PO; -PROC10TA5 PO
== END ==
LOC: M LABSMTC 09:14
PROVIDERS: ATTEND Anesthesiology
DX: Z01.818 Encounter for other preprocedural examination (principal); Z11.52 Encounter for screening for COVID-19

== ENCOUNTER → 2022-06-29 | Outpatient (CLI) | payer OTHER ==
[~2022-06-29] MED LIST changes: +MIDAZOLAM INJ 2MG/2ML VIAL As Ordered ONE; +NS 1,000 ML IV SCH; +ONDA-84 PO; +ONDANSETRON 4MG 2ML VIAL As Ordered ONE; +PROC10TA5 PO; +PROMETHAZINE 25MG/ML 1ML VIAL As Ordered ONE; +ceFAZolin 2 GM/D5W 50 ML IV BAG As Ordered ONE; +ceFAZolin SOD 2 GM in IV 1 EA IV ONE; +diphenhydrAMINE 50MG/ML VIAL As Ordered ONE; +fentaNYL 100 MCG/2 ML INJECTION As Ordered ONE
[2022-06-29 15:45] VITALS: BP 132/86
== END ==
LOC: M IRPRO 11:27
PROVIDERS: ATTEND Internal Medicine Medical Oncology
DX: C50.912 Malignant neoplasm of unspecified site of left female breast (principal)
CPT/HCPCS: 36561; 99152; 99153; C1769; C1788; C1894; J0690; J2250; J2405; J2550; J3010

== ENCOUNTER 2022-07-08 16:10 | Emergency (ER) | payer OTHER ==
[~2022-07-08] VITALS: Ht 175.3 cm; Wt 87.0 kg
[~2022-07-08 16:10] MED LIST changes: -MIDAZOLAM INJ 2MG/2ML VIAL As Ordered ONE; -NS 1,000 ML IV SCH; -ONDANSETRON 4MG 2ML VIAL As Ordered ONE; -PROMETHAZINE 25MG/ML 1ML VIAL As Ordered ONE; -ceFAZolin 2 GM/D5W 50 ML IV BAG As Ordered ONE; -ceFAZolin SOD 2 GM in IV 1 EA IV ONE; -diphenhydrAMINE 50MG/ML VIAL As Ordered ONE; -fentaNYL 100 MCG/2 ML INJECTION As Ordered ONE
[2022-07-08 17:30] LABS: BASO % 0.4 % (0.0-1.0); EOS # 0.1 10^3/uL (0.0-0.5); HEMATOCRIT 41.5 % (36.0-47.0); HEMOGLOBIN 13.5 g/dl (12.0-15.5); LYMPH # 2.2 10^3/uL (1.5-5.0); LYMPH % 32.1 % (24.0-44.0); MEAN CORPUSCULAR HEMOGLOBIN 30.6 pg (27.0-33.0); MEAN CORPUSCULAR HGB CONC 32.5 g/dl (32.0-36.5); MEAN CORPUSCULAR VOLUME 94.1 fl (80.0-96.0); MONO # 0.5 10^3/uL (0.0-0.8); MONO % 7.2 % (2.0-8.0); NEUTROPHILS # 4.1 10^3/uL (1.5-8.5); NEUTROPHILS % 59.2 % (36.0-66.0); PLATELET COUNT, AUTOMATED 253 10^3/uL (150-450); RED BLOOD COUNT 4.41 10^6/uL (4.00-5.40); WHITE BLOOD COUNT 6.9 10^3/uL (4.0-10.0)
[2022-07-08 17:41] LABS: INR 0.91; PARTIAL THROMBOPLASTIN TIME 31.6 SECONDS (24.8-34.2); PROTHROMBIN TIME 12.5 SECONDS (12.5-14.5)
[2022-07-08 17:49] LABS: CK-MB VALUE MASS < 1.0 NG/ML (<3.6)
[2022-07-08 17:51] LABS: BLOOD UREA NITROGEN 14 MG/DL (9-23); CALCIUM LEVEL 9.4 MG/DL (8.5-10.1); CARBON DIOXIDE LEVEL 30 MMOL/L (20-31); CHLORIDE LEVEL 107 MMOL/L (98-107); CPK CREATINE PHOSPHOKINASE 61 U/L (34-145); CREATININE FOR GFR 0.65 MG/DL (0.55-1.30); GLOMERULAR FILTRATION RATE > 60.0 (>51); GLUCOSE, FASTING 100 MG/DL (60-100); MB/CK RELATIVE INDEX 1.63 (< OR =4); SODIUM LEVEL 142 MMOL/L (136-145)
[2022-07-08] MEDS ORDERED: ISOVUE-370 76% 100ML VIAL As Ordered ONE (18:10)
[2022-07-08 19:28] VITALS: BP 142/88
[2022-07-12] MEDS ORDERED: COLA100C5 PO (08:11)
[2022-07-12] MEDS ORDERED: LIDO1CRE42 TOP (08:18)
== END 2022-07-08 19:29 | disposition home or self-care (01) ==
LOC: M ED 16:10
DX: G89.18 Other acute postprocedural pain (principal); C50.919 Malignant neoplasm of unspecified site of unspecified female breast; Z88.2 Allergy status to sulfonamides; Z88.8 Allergy status to other drugs, medicaments and biological substances; Z88.6 Allergy status to analgesic agent; Z88.5 Allergy status to narcotic agent; Z91.018 Allergy to other foods; Z79.899 Other long term (current) drug therapy
CPT/HCPCS: 36415; 71045; 71275; 80048; 82550; 82553; 85025; 85610; 85730; 93005; 93041; 93971; 94760; 99284; Q9967

== ENCOUNTER → 2022-07-25 | Outpatient (POV) | payer OTHER ==
[~2022-07-25] VITALS: Ht 175.3 cm; Wt 84.0 kg
[~2022-07-25] MED LIST changes: +CLAR1TAB13 PO; +COLA100C5 PO; +LIDO1CRE42 TOP; +MAGICMW SSP
[2022-07-25 10:15] VITALS: BP 103/72
== END ==
LOC: M IRPOV 10:06
PROVIDERS: ATTEND Radiology Diagnostic Radiology
DX: Z45.2 Encounter for adjustment and management of vascular access device (principal); Z88.1 Allergy status to other antibiotic agents; Z88.2 Allergy status to sulfonamides; Z88.5 Allergy status to narcotic agent; Z88.8 Allergy status to other drugs, medicaments and biological substances; Z91.013 Allergy to seafood; Z91.048 Other nonmedicinal substance allergy status

== ENCOUNTER → 2022-11-14 | Outpatient (CLI) | payer OTHER ==
[~2022-11-14] MED LIST changes: +AMOX875T2 PO; +FAMO20TA PO; +GABA-1171 PO; -LIDO1CRE42 TOP; +LIDO30CR18 TOP; +NITR-67 PO; +PRED5TA PO
== END ==
LOC: M ONCR 12:54
PROVIDERS: ATTEND General Practice
DX: C50.212 Malignant neoplasm of upper-inner quadrant of left female breast (principal); Z92.21 Personal history of antineoplastic chemotherapy; Z71.2 Person consulting for explanation of examination or test findings; Z79.899 Other long term (current) drug therapy; Z88.1 Allergy status to other antibiotic agents; Z88.2 Allergy status to sulfonamides; Z88.5 Allergy status to narcotic agent; Z91.048 Other nonmedicinal substance allergy status; Z91.013 Allergy to seafood

== ENCOUNTER 2022-11-29 13:03 | Outpatient (RCR) | payer OTHER | END 2022-11-30 | LOC: M ONCR 13:03 | PROVIDERS: ATTEND General Practice | DX: Z51.0 Encounter for antineoplastic radiation therapy (principal); C50.212 Malignant neoplasm of upper-inner quadrant of left female breast ==

== ENCOUNTER → 2022-12-12 | Outpatient (CLI) | payer OTHER ==
[2022-12-12 10:46] LABS: INR 1.02; PROTHROMBIN TIME 13.1 SECONDS (12.5-14.5)
[2022-12-12 10:47] LABS: PARTIAL THROMBOPLASTIN TIME 30.9 SECONDS (24.8-34.2)
[2022-12-12 10:53] LABS: HEMOGLOBIN A1c 5.1 % (4.0-6.0)
[2022-12-12 11:08] LABS: TOTAL 25(OH) VITAMIN D 82.1 NG/ML (20.0-100.0)
[2022-12-12 11:09] LABS: FERRITIN 81.3 NG/ML (7.3-270.7); THYROID STIMULATING HORMONE 3.241 uIU/ML (0.55-4.78)
[2022-12-12 11:12] LABS: FREE T4 0.98 NG/DL (0.89-1.76); IRON (FE) 101 UG/DL (50-170); PERCENT SATURATION 33.9 % (13.2-45.0); TOTAL IRON BINDING CAPACITY 298 UG/DL (250-425)
[2022-12-12 11:13] LABS: ALBUMIN 3.8 G/DL (3.2-5.2); ALKALINE PHOSPHATASE 71 U/L (46-116); ALT/SGPT 21 U/L (7.0-40); AST/SGOT 12 U/L (<34); BILIRUBIN,TOTAL 0.4 MG/DL (0.3-1.2); BLOOD UREA NITROGEN 14 MG/DL (9-23); CALCIUM LEVEL 9.7 MG/DL (8.5-10.1); CARBON DIOXIDE LEVEL 31 MMOL/L (20-31); CHLORIDE LEVEL 106 MMOL/L (98-107); CHOLESTEROL LEVEL 178 MG/DL (<200); CHOLESTEROL RISK RATIO 4.19 (<5); CREATININE FOR GFR 0.64 MG/DL (0.55-1.30); GLOMERULAR FILTRATION RATE > 60.0 (>51); GLUCOSE, FASTING 86 MG/DL (60-100); HDL CHOLESTEROL 42.4 MG/DL (>40); LDL CHOLESTEROL 100.6 MG/DL (<100); NON-HDL-C 135.6 MG/DL; SODIUM LEVEL 145 MMOL/L (136-145); TOTAL PROTEIN 6.1 G/DL (5.7-8.2); TRIGLYCERIDES LEVEL 175 MG/DL (<150)
[2022-12-12 11:38] LABS: PTH INTACT 31.5 PG/ML (18.5-88.0)
== END ==
LOC: M PLALAB 07:48
PROVIDERS: ATTEND Family Medicine
DX: E78.5 Hyperlipidemia, unspecified (principal)

== ENCOUNTER → 2022-12-14 | Outpatient (CLI) | payer OTHER | LOC: M WHC 14:34 | PROVIDERS: ATTEND Family Medicine | DX: M85.80 Other specified disorders of bone density and structure, unspecified site (principal); Z53.9 Procedure and treatment not carried out, unspecified reason ==

== ENCOUNTER → 2023-01-11 | Outpatient (CLI) | payer OTHER ==
[~2023-01-11] MED LIST changes: +LETR2.5T2 PO
== END ==
LOC: M WHC 08:43
PROVIDERS: ATTEND Internal Medicine Medical Oncology
DX: Z13.820 Encounter for screening for osteoporosis (principal)

== ENCOUNTER 2023-01-29 08:03 | Outpatient (RCR) | payer OTHER | END 2023-01-30 | LOC: M ONCR 08:03 | PROVIDERS: ATTEND General Practice | DX: Z51.0 Encounter for antineoplastic radiation therapy (principal); C50.212 Malignant neoplasm of upper-inner quadrant of left female breast ==

== ENCOUNTER → 2023-02-13 | Outpatient (CLI) | payer OTHER | LOC: M ONCR 08:46 | PROVIDERS: ATTEND General Practice | DX: L58.9 Radiodermatitis, unspecified (principal); L73.9 Follicular disorder, unspecified; Z92.3 Personal history of irradiation ==

== ENCOUNTER → 2023-02-14 | Outpatient (CLI) | payer OTHER ==
[~2023-02-14] VITALS: Ht 174 cm; Wt 82.7 kg
[~2023-02-14] MED LIST changes: +LIDOCAINE 1% MDV 20ML VIAL As Ordered ONE; +LIDOCAINE W/EPINEPHRINE 1% 20ML VIAL As Ordered ONE; +MIDAZOLAM INJ 2MG/2ML VIAL As Ordered ONE; +NS 1,000 ML IV SCH; +ONDANSETRON 4MG 2ML VIAL As Ordered ONE; +ceFAZolin 2 GM/D5W 50 ML IV BAG As Ordered ONE; +ceFAZolin SOD 2 GM in IV 1 EA IV ONE; +fentaNYL 100 MCG/2 ML INJECTION As Ordered ONE
[2023-02-14 09:50] VITALS: TEMP 97.7
[2023-02-14 11:56] VITALS: BP 136/65; O2SAT 99
== END ==
LOC: M IRPRO 09:34
PROVIDERS: ATTEND Internal Medicine Medical Oncology
DX: C50.919 Malignant neoplasm of unspecified site of unspecified female breast (principal)
CPT/HCPCS: 36589; J0690

== ENCOUNTER → 2023-03-02 | Outpatient (REF) | payer OTHER ==
[~2023-03-02] MED LIST changes: -LIDOCAINE 1% MDV 20ML VIAL As Ordered ONE; -LIDOCAINE W/EPINEPHRINE 1% 20ML VIAL As Ordered ONE; -MIDAZOLAM INJ 2MG/2ML VIAL As Ordered ONE; -NS 1,000 ML IV SCH; -ONDANSETRON 4MG 2ML VIAL As Ordered ONE; -ceFAZolin 2 GM/D5W 50 ML IV BAG As Ordered ONE; -ceFAZolin SOD 2 GM in IV 1 EA IV ONE; -fentaNYL 100 MCG/2 ML INJECTION As Ordered ONE
[2023-03-02 21:30] LABS: APPEARANCE, URINE MANUAL HAZY (CLEAR); COLOR, URINE MANUAL AMBER (YELLOW)
[2023-03-02 21:31] LABS: BILIRUBIN, URINE MANUAL OBSCURED (NEGATIVE); BLOOD URINE MANUAL POSITIVE (NEGATIVE); GLUCOSE, URINE (UA) MANUAL NEGATIVE (NEGATIVE); KETONE, URINE MANUAL NEGATIVE (NEGATIVE); LEUKOCYTE ESTERASE, URINE MAN POSITIVE (NEGATIVE); NITRITE, URINE MANUAL OBSCURED (NEGATIVE); PROTEIN, URINE MANUAL OBSCURED mg/dL (NEGATIVE); UROBILINOGEN, URINE MANUAL OBSCURED mg/dl (NORMAL)
[2023-03-02 21:33] LABS: BACTERIA, URINE NONE SEEN; HYALINE CAST, URINE NONE SEEN /lpf (0-1); SQUAMOUS EPITHELIAL CELL URINE NONE SEEN /hpf (SMALL AMT)
== END ==
LOC: M LAB REF 20:56
PROVIDERS: ATTEND Physician Assistant
DX: N39.0 Urinary tract infection, site not specified (principal)

== ENCOUNTER → 2023-03-29 | Outpatient (REF) | payer OTHER ==
[~2023-03-29] MED LIST changes: +NITR100C2 PO
== END ==
LOC: M LAB REF 12:48
PROVIDERS: ATTEND Physician Assistant Medical
DX: N30.01 Acute cystitis with hematuria (principal)

== ENCOUNTER 2023-05-01 08:27 | Outpatient (RCR) | payer OTHER ==
[~2023-05-01 08:27] MED LIST changes: +CEPH250T PO
[2023-05-02] MEDS ORDERED: LETR2.5T2 PO (07:58)
== END 2023-05-02 ==
LOC: M PT 08:27
PROVIDERS: ATTEND General Practice
DX: I89.0 Lymphedema, not elsewhere classified (principal); C50.212 Malignant neoplasm of upper-inner quadrant of left female breast

== ENCOUNTER → 2023-05-22 | Outpatient (CLI) | payer OTHER | LOC: M WHC 07:23 | PROVIDERS: ATTEND Nurse Practitioner Women's Health | DX: C50.912 Malignant neoplasm of unspecified site of left female breast (principal) ==

== ENCOUNTER 2023-05-29 08:29 | Outpatient (RCR) | payer OTHER | END 2023-05-31 | LOC: M PT 08:29 | PROVIDERS: ATTEND General Practice | DX: I89.0 Lymphedema, not elsewhere classified (principal); C50.212 Malignant neoplasm of upper-inner quadrant of left female breast ==

== ENCOUNTER 2023-06-19 09:12 | Outpatient (RCR) | payer OTHER ==
[~2023-06-19 09:12] MED LIST changes: +B-12100T2
== END 2023-07-01 ==
LOC: M PT 09:12
PROVIDERS: ATTEND General Practice
DX: I89.0 Lymphedema, not elsewhere classified (principal); C50.212 Malignant neoplasm of upper-inner quadrant of left female breast

== ENCOUNTER → 2023-07-02 | Outpatient (CLI) | payer OTHER ==
[2023-07-02 10:52] LABS: BASO % 0.8 % (0.0-1.0); EOS # 0.1 10^3/uL (0.0-0.5); EOS % 2.5 % (0.0-3.0); HEMATOCRIT 41.7 % (36.0-47.0); HEMOGLOBIN 14.1 g/dl (12.0-15.5); LYMPH # 0.9 10^3/uL (1.5-5.0); LYMPH % 25.6 % (24.0-44.0); MEAN CORPUSCULAR HEMOGLOBIN 32.1 pg (27.0-33.0); MEAN CORPUSCULAR HGB CONC 33.8 g/dl (32.0-36.5); MONO # 0.3 10^3/uL (0.0-0.8); NEUTROPHILS # 2.2 10^3/uL (1.5-8.5); NEUTROPHILS % 61.8 % (36.0-66.0); PLATELET COUNT, AUTOMATED 212 10^3/uL (150-450); RED BLOOD COUNT 4.39 10^6/uL (4.00-5.40); WHITE BLOOD COUNT 3.6 10^3/uL (4.0-10.0)
[2023-07-02 11:00] LABS: PERCENT SATURATION 33.8 % (13.2-45.0)
[2023-07-02 11:01] LABS: PTH INTACT 36.8 PG/ML (18.5-88.0)
[2023-07-02 11:02] LABS: FERRITIN 64.6 NG/ML (7.3-270.7)
[2023-07-02 11:03] LABS: TOTAL 25(OH) VITAMIN D 64.7 NG/ML (20.0-100.0)
== END ==
LOC: M PLALAB 07:46
PROVIDERS: ATTEND Family Medicine
DX: E83.119 Hemochromatosis, unspecified (principal); E55.9 Vitamin D deficiency, unspecified; D75.89 Other specified diseases of blood and blood-forming organs

== ENCOUNTER → 2023-07-06 | Outpatient (REF) | payer OTHER | LOC: M SFHCPLAZ 09:54 | PROVIDERS: ATTEND Family Medicine | DX: E83.119 Hemochromatosis, unspecified (principal); D75.89 Other specified diseases of blood and blood-forming organs; R73.01 Impaired fasting glucose; E55.9 Vitamin D deficiency, unspecified ==

== ENCOUNTER 2023-07-17 10:45 | Outpatient (RCR) | payer OTHER | END 2023-07-31 | LOC: M PT 10:45 | PROVIDERS: ATTEND General Practice | DX: I89.0 Lymphedema, not elsewhere classified (principal) ==

== ENCOUNTER → 2023-08-01 | Outpatient (CLI) | payer OTHER | LOC: M ONCR 08:57 | PROVIDERS: ATTEND General Practice | DX: Z08 Encounter for follow-up examination after completed treatment for malignant neoplasm (principal); Z85.3 Personal history of malignant neoplasm of breast; I89.0 Lymphedema, not elsewhere classified; Z71.2 Person consulting for explanation of examination or test findings; Z79.02 Long term (current) use of antithrombotics/antiplatelets; Z79.811 Long term (current) use of aromatase inhibitors; Z79.899 Other long term (current) drug therapy; Z88.1 Allergy status to other antibiotic agents; Z88.2 Allergy status to sulfonamides; Z88.5 Allergy status to narcotic agent; Z91.013 Allergy to seafood; Z91.048 Other nonmedicinal substance allergy status; Z92.21 Personal history of antineoplastic chemotherapy; Z92.3 Personal history of irradiation | CPT/HCPCS: 99213; G0463 ==

== ENCOUNTER → 2023-08-06 | Outpatient (CLI) | payer OTHER | LOC: M WHC 07:38 | PROVIDERS: ATTEND Family Medicine | DX: K74.00 Hepatic fibrosis, unspecified (principal) ==

== ENCOUNTER → 2023-11-02 | Outpatient (CLI) | payer OTHER ==
[~2023-11-02] MED LIST changes: +PROHANCE 279.3MG/ML 15ML VIAL As Ordered ONE; +PROHANCE 279.3MG/ML 5ML VIAL As Ordered ONE
== END ==
LOC: M RAD 12:26
PROVIDERS: ATTEND Nurse Practitioner Women's Health
DX: C50.912 Malignant neoplasm of unspecified site of left female breast (principal); Z91.89 Other specified personal risk factors, not elsewhere classified
CPT/HCPCS: 77049; A9576

== ENCOUNTER → 2023-11-06 | Outpatient (REF) | payer OTHER ==
[~2023-11-06] MED LIST changes: +ALEN70TA82; +EXEM25TA PO; -PROHANCE 279.3MG/ML 15ML VIAL As Ordered ONE; -PROHANCE 279.3MG/ML 5ML VIAL As Ordered ONE; +ZYRTTAB8 PO
== END ==
LOC: M SFHCPLAZ 12:28
PROVIDERS: ATTEND Physician Assistant Medical
DX: R39.9 Unspecified symptoms and signs involving the genitourinary system (principal)

== ENCOUNTER → 2023-11-13 | Outpatient (CLI) | payer OTHER ==
[2023-11-13 10:31] LABS: BASO % 0.5 % (0.0-1.0); EOS # 0.1 10^3/uL (0.0-0.5); EOS % 1.7 % (0.0-3.0); HEMATOCRIT 43.6 % (36.0-47.0); HEMOGLOBIN 14.5 g/dl (12.0-15.5); LYMPH # 1.3 10^3/uL (1.5-5.0); LYMPH % 31.1 % (24.0-44.0); MEAN CORPUSCULAR HEMOGLOBIN 31.6 pg (27.0-33.0); MEAN CORPUSCULAR HGB CONC 33.3 g/dl (32.0-36.5); MONO # 0.4 10^3/uL (0.0-0.8); MONO % 9.5 % (2.0-8.0); NEUTROPHILS # 2.3 10^3/uL (1.5-8.5); PLATELET COUNT, AUTOMATED 212 10^3/uL (150-450); RED BLOOD COUNT 4.59 10^6/uL (4.00-5.40)
[2023-11-13 10:48] LABS: INR 0.97; PARTIAL THROMBOPLASTIN TIME 29.5 SECONDS (24.8-34.2); PROTHROMBIN TIME 12.6 SECONDS (12.5-14.5)
[2023-11-13 11:06] LABS: ALBUMIN 3.9 G/DL (3.2-5.2); ALKALINE PHOSPHATASE 79 U/L (46-116); ALT/SGPT 24 U/L (7.0-40); AST/SGOT 19 U/L (<34); BILIRUBIN,TOTAL 0.6 MG/DL (0.3-1.2); BLOOD UREA NITROGEN 15 MG/DL (9-23); CALCIUM LEVEL 9.6 MG/DL (8.5-10.1); CARBON DIOXIDE LEVEL 31 MMOL/L (20-31); CHLORIDE LEVEL 108 MMOL/L (98-107); CHOLESTEROL LEVEL 176 MG/DL (<200); CHOLESTEROL RISK RATIO 3.88 (<5); CREATININE FOR GFR 0.65 MG/DL (0.55-1.30); GLOMERULAR FILTRATION RATE > 60.0 (>51); GLUCOSE, FASTING 78 MG/DL (60-100); HDL CHOLESTEROL 45.3 MG/DL (>40); HEMOGLOBIN A1c 5.1 % (4.0-6.0); IRON (FE) 146 UG/DL (50-170); LDL CHOLESTEROL 90.9 MG/DL (<100); NON-HDL-C 130.7 MG/DL; PERCENT SATURATION 49.2 % (13.2-45.0); POTASSIUM SERUM 4.5 MMOL/L (3.5-5.1); PTH INTACT 64.8 PG/ML (18.5-88.0); SODIUM LEVEL 139 MMOL/L (136-145); TOTAL IRON BINDING CAPACITY 297 UG/DL (250-425); TOTAL PROTEIN 6.5 G/DL (5.7-8.2); TRIGLYCERIDES LEVEL 199 MG/DL (<150)
[2023-11-13 11:07] LABS: FERRITIN 86.8 NG/ML (7.3-270.7); FREE T4 1.07 NG/DL (0.89-1.76)
[2023-11-13 11:08] LABS: THYROID STIMULATING HORMONE 6.037 uIU/ML (0.55-4.78); TOTAL 25(OH) VITAMIN D 82.5 NG/ML (20.0-100.0)
== END ==
LOC: M PLALAB 08:08
PROVIDERS: ATTEND Family Medicine
DX: E83.119 Hemochromatosis, unspecified (principal); D75.89 Other specified diseases of blood and blood-forming organs; R73.01 Impaired fasting glucose

== ENCOUNTER → 2023-11-13 | Outpatient (REF) | payer OTHER | LOC: M SFHCPLAZ 10:34 | PROVIDERS: ATTEND Family Medicine | DX: E83.119 Hemochromatosis, unspecified (principal); D75.89 Other specified diseases of blood and blood-forming organs; R73.01 Impaired fasting glucose; E55.9 Vitamin D deficiency, unspecified ==

== ENCOUNTER → 2024-01-08 | Outpatient (REF) | payer OTHER ==
[2024-01-08 18:22] LABS: CREATININE,RANDOM URINE 209.1 MG/DL
[2024-01-08 18:25] LABS: TOTAL PROTEIN,RANDOM URINE 127.1 MG/DL (0.0-14.0)
== END ==
LOC: M LAB REF 17:12
PROVIDERS: ATTEND Internal Medicine Nephrology
DX: R80.9 Proteinuria, unspecified (principal)

== ENCOUNTER 2024-01-14 08:27 | Outpatient (RCR) | payer OTHER | END 2024-01-31 | LOC: M PT 08:27 | PROVIDERS: ATTEND General Practice | DX: I89.0 Lymphedema, not elsewhere classified (principal) ==

== ENCOUNTER → 2024-02-06 | Outpatient (CLI) | payer OTHER | LOC: M ONCR 09:20 | PROVIDERS: ATTEND General Practice | DX: Z08 Encounter for follow-up examination after completed treatment for malignant neoplasm (principal); Z85.3 Personal history of malignant neoplasm of breast; I89.0 Lymphedema, not elsewhere classified; Z79.02 Long term (current) use of antithrombotics/antiplatelets; Z79.811 Long term (current) use of aromatase inhibitors; Z79.899 Other long term (current) drug therapy; Z92.21 Personal history of antineoplastic chemotherapy; Z92.3 Personal history of irradiation; Z88.1 Allergy status to other antibiotic agents; Z88.2 Allergy status to sulfonamides; Z88.5 Allergy status to narcotic agent; Z91.048 Other nonmedicinal substance allergy status; Z91.013 Allergy to seafood; Z98.890 Other specified postprocedural states ==

== ENCOUNTER → 2024-04-11 | Outpatient (CLI) | payer OTHER ==
[2024-04-11 12:00] LABS: BASO % 0.5 % (0.0-1.0); EOS # 0.1 10^3/uL (0.0-0.5); EOS % 1.4 % (0.0-3.0); HEMATOCRIT 43.4 % (36.0-47.0); HEMOGLOBIN 14.4 g/dl (12.0-15.5); LYMPH # 1.2 10^3/uL (1.5-5.0); LYMPH % 27.4 % (24.0-44.0); MEAN CORPUSCULAR HEMOGLOBIN 31.2 pg (27.0-33.0); MEAN CORPUSCULAR HGB CONC 33.2 g/dl (32.0-36.5); MEAN CORPUSCULAR VOLUME 93.9 fl (80.0-96.0); MONO # 0.4 10^3/uL (0.0-0.8); MONO % 8.3 % (2.0-8.0); NEUTROPHILS # 2.6 10^3/uL (1.5-8.5); NEUTROPHILS % 61.9 % (36.0-66.0); PLATELET COUNT, AUTOMATED 207 10^3/uL (150-450); RED BLOOD COUNT 4.62 10^6/uL (4.00-5.40); WHITE BLOOD COUNT 4.2 10^3/uL (4.0-10.0)
[2024-04-11 12:18] LABS: HEMOGLOBIN A1c 5.1 % (4.0-6.0)
[2024-04-11 12:32] LABS: ALBUMIN 3.9 G/DL (3.2-5.2); ALKALINE PHOSPHATASE 70 U/L (35-104); ALT/SGPT 30 U/L (7.0-40); AST/SGOT 19 U/L (<34); BILIRUBIN,TOTAL 0.6 MG/DL (0.3-1.2); BLOOD UREA NITROGEN 17 MG/DL (9-23); CALCIUM LEVEL 9.7 MG/DL (8.5-10.1); CARBON DIOXIDE LEVEL 30 MMOL/L (20-31); CHLORIDE LEVEL 106 MMOL/L (98-107); CHOLESTEROL LEVEL 161 MG/DL (<200); CHOLESTEROL RISK RATIO 3.13 (<5); CREATININE FOR GFR 0.68 MG/DL (0.55-1.30); FERRITIN 100.5 NG/ML (7.3-270.7); FREE T4 1.16 NG/DL (0.89-1.76); GLOMERULAR FILTRATION RATE > 60.0 (>51); GLUCOSE, FASTING 85 MG/DL (60-100); HDL CHOLESTEROL 51.4 MG/DL (>40); LDL CHOLESTEROL 88.6 MG/DL (<100); NON-HDL-C 109.6 MG/DL; POTASSIUM SERUM 4.6 MMOL/L (3.5-5.1); PTH INTACT 49.2 PG/ML (18.5-88.0); SODIUM LEVEL 143 MMOL/L (136-145); THYROID STIMULATING HORMONE 4.008 uIU/ML (0.55-4.78); TOTAL 25(OH) VITAMIN D 84.1 NG/ML (20.0-100.0); TOTAL PROTEIN 6.8 G/DL (5.7-8.2); TRIGLYCERIDES LEVEL 105 MG/DL (<150)
== END ==
LOC: M PLALAB 08:18
PROVIDERS: ATTEND Family Medicine
DX: E78.5 Hyperlipidemia, unspecified (principal)

== ENCOUNTER 2024-05-05 06:41 | Day surgery (SDC) | payer OTHER ==
[~2024-05-05] VITALS: Ht 175.3 cm; Wt 85.3 kg
[~2024-05-05 06:41] MED LIST changes: -ALEN70TA82; +ALEN70TA82 PO; -B-12100T2; +B-12100T2 PO; +ERGO500029 PO
[2024-05-05 08:00] VITALS: TEMP 96.6
[2024-05-05 08:25] VITALS: BP 107/57; O2SAT 97
== END 2024-05-05 08:33 | disposition home or self-care (01) ==
LOC: M OPP 06:41
PROVIDERS: ATTEND Internal Medicine Gastroenterology
DX: K57.30 Diverticulosis of large intestine without perforation or abscess without bleeding (principal); K64.8 Other hemorrhoids; Z86.0101 Personal history of adenomatous and serrated colon polyps; Z88.2 Allergy status to sulfonamides; Z88.5 Allergy status to narcotic agent; Z91.013 Allergy to seafood; Z91.048 Other nonmedicinal substance allergy status; Z79.02 Long term (current) use of antithrombotics/antiplatelets; Z79.899 Other long term (current) drug therapy; Z95.828 Presence of other vascular implants and grafts

== ENCOUNTER → 2024-05-07 | Outpatient (REF) | payer OTHER | LOC: M SFHCWAGY 13:24 | PROVIDERS: ATTEND Nurse Practitioner Family | DX: Z11.51 Encounter for screening for human papillomavirus (HPV) (principal); Z12.72 Encounter for screening for malignant neoplasm of vagina ==

== ENCOUNTER → 2024-05-27 | Outpatient (CLI) | payer OTHER | LOC: M WHC 10:11 | PROVIDERS: ATTEND Nurse Practitioner Family | DX: Z12.31 Encounter for screening mammogram for malignant neoplasm of breast (principal); Z91.89 Other specified personal risk factors, not elsewhere classified; D05.12 Intraductal carcinoma in situ of left breast ==

== ENCOUNTER → 2024-06-03 | Outpatient (CLI) | payer OTHER | LOC: M PLAIMG 11:28 | DX: M54.31 Sciatica, right side (principal) ==

== ENCOUNTER → 2024-06-30 | Outpatient (RCR) | payer OTHER | LOC: M PT 06-16 08:44 | DX: M70.61 Trochanteric bursitis, right hip (principal) ==

== ENCOUNTER 2024-07-14 08:20 | Outpatient (RCR) | payer OTHER | END 2024-07-30 | LOC: M PT 08:20 | PROVIDERS: ATTEND General Practice | DX: I89.0 Lymphedema, not elsewhere classified (principal) ==

== ENCOUNTER 2024-07-16 13:00 | Outpatient (RCR) | payer OTHER | END 2024-07-30 | LOC: M PT 13:00 | DX: M70.61 Trochanteric bursitis, right hip (principal) ==

== ENCOUNTER → 2024-07-23 | Outpatient (REF) | payer OTHER ==
[2024-07-23 15:33] LABS: APPEARANCE, URINE CLEAR (CLEAR); BACTERIA, URINE AUTO NEGATIVE (NEGATIVE); BILIRUBIN, URINE AUTO NEGATIVE (NEGATIVE); BLOOD, URINE BLOOD 2+ (NEGATIVE); COLOR, URINE AMBER (YELLOW); GLUCOSE, URINE (UA) AUTO NEGATIVE (NEGATIVE); KETONE, URINE AUTO NEGATIVE (NEGATIVE); LEUKOCYTE ESTERASE, URINE AUTO 2+ (NEGATIVE); NITRITE, URINE AUTO NEGATIVE (NEGATIVE); PROTEIN, URINE AUTO NEGATIVE (NEGATIVE); RBC, URINE AUTO 12 /HPF (0-3); SPECIFIC GRAVITY URINE AUTO 1.008 (1.002-1.035); SQUAMOUS EPITHELIAL CELL UR AU 0 /HPF (0-6); UROBILINOGEN, URINE AUTO 0.2 mg/dL (0.0-2.0); WBC, URINE AUTO 34 /HPF (0-3)
== END ==
LOC: M SMT 15:06
PROVIDERS: ATTEND Physician Assistant Medical
DX: R30.0 Dysuria (principal); R10.9 Unspecified abdominal pain

== ENCOUNTER → 2024-08-19 | Outpatient (REF) | payer OTHER ==
[2024-08-19 15:32] LABS: APPEARANCE, URINE CLEAR (CLEAR); BACTERIA, URINE AUTO NEGATIVE (NEGATIVE); BILIRUBIN, URINE AUTO NEGATIVE (NEGATIVE); BLOOD, URINE BLOOD 2+ (NEGATIVE); COLOR, URINE STRAW (YELLOW); GLUCOSE, URINE (UA) AUTO NEGATIVE (NEGATIVE); KETONE, URINE AUTO NEGATIVE (NEGATIVE); LEUKOCYTE ESTERASE, URINE AUTO NEGATIVE (NEGATIVE); NITRITE, URINE AUTO NEGATIVE (NEGATIVE); PROTEIN, URINE AUTO 1+ mg/dL (NEGATIVE); RBC, URINE AUTO 3 /HPF (0-3); SPECIFIC GRAVITY URINE AUTO 1.004 (1.002-1.035); SQUAMOUS EPITHELIAL CELL UR AU 0 /HPF (0-6); UROBILINOGEN, URINE AUTO 0.2 mg/dL (0.0-2.0); WBC, URINE AUTO 0 /HPF (0-3)
== END ==
LOC: M SFHCPLAZ 15:08
PROVIDERS: ATTEND Student in an Organized Health Care Education/Training Program
DX: R30.0 Dysuria (principal)

== ENCOUNTER → 2024-09-09 | Outpatient (CLI) | payer OTHER ==
[~2024-09-09] MED LIST changes: +B-12100T2; +METH-1164
[2024-09-09 10:54] LABS: HEMATOCRIT 41.9 % (36.0-47.0)
[2024-09-09 10:55] LABS: BASO % 0.5 % (0.0-1.0); EOS # 0.1 10^3/uL (0.0-0.5); EOS % 2.1 % (0.0-3.0); HEMATOCRIT 41.9 % (36.0-47.0); HEMOGLOBIN 13.7 g/dl (12.0-15.5); LYMPH # 1.3 10^3/uL (1.5-5.0); LYMPH % 29.7 % (24.0-44.0); MEAN CORPUSCULAR HEMOGLOBIN 31.4 pg (27.0-33.0); MEAN CORPUSCULAR HGB CONC 32.7 g/dl (32.0-36.5); MEAN CORPUSCULAR VOLUME 96.1 fl (80.0-96.0); MONO # 0.5 10^3/uL (0.0-0.8); MONO % 12.1 % (2.0-8.0); NEUTROPHILS # 2.4 10^3/uL (1.5-8.5); NEUTROPHILS % 55.4 % (36.0-66.0); PLATELET COUNT, AUTOMATED 194 10^3/uL (150-450); RED BLOOD COUNT 4.36 10^6/uL (4.00-5.40); WHITE BLOOD COUNT 4.3 10^3/uL (4.0-10.0)
[2024-09-09 11:32] LABS: THYROID STIMULATING HORMONE 5.768 uIU/ML (0.55-4.78); TOTAL IRON BINDING CAPACITY 270 UG/DL (250-425)
[2024-09-09 11:33] LABS: ALBUMIN 3.8 G/DL (3.2-5.2); ALKALINE PHOSPHATASE 142 U/L (35-104); ALT/SGPT 26 U/L (7.0-40); AST/SGOT 21 U/L (<34); BILIRUBIN,TOTAL 0.6 MG/DL (0.3-1.2); BLOOD UREA NITROGEN 14 MG/DL (9-23); CALCIUM LEVEL 9.5 MG/DL (8.5-10.1); CARBON DIOXIDE LEVEL 30 MMOL/L (20-31); CHLORIDE LEVEL 106 MMOL/L (98-107); CHOLESTEROL LEVEL 159 MG/DL (<200); CHOLESTEROL RISK RATIO 3.47 (<5); CREATININE FOR GFR 0.68 MG/DL (0.55-1.30); FREE T4 1.01 NG/DL (0.89-1.76); GLOMERULAR FILTRATION RATE > 90.0 (>51); GLUCOSE, FASTING 87 MG/DL (60-100); HDL CHOLESTEROL 45.7 MG/DL (>40); IRON (FE) 72 UG/DL (50-170); LDL CHOLESTEROL 85.9 MG/DL (<100); NON-HDL-C 113.3 MG/DL; PERCENT SATURATION 26.7 % (13.2-45.0); POTASSIUM SERUM 4.6 MMOL/L (3.5-5.1); SODIUM LEVEL 145 MMOL/L (136-145); TOTAL PROTEIN 6.4 G/DL (5.7-8.2); TRIGLYCERIDES LEVEL 137 MG/DL (<150)
[2024-09-09 11:34] LABS: FERRITIN 109.1 NG/ML (7.3-270.7); TOTAL 25(OH) VITAMIN D 75.7 NG/ML (20.0-100.0)
[2024-09-09 11:35] LABS: VITAMIN B12 LEVEL 515 PG/ML (211-911)
[2024-09-09 12:35] LABS: PTH INTACT 41.3 PG/ML (18.5-88.0)
[2024-09-09 12:39] LABS: THYROID PEROXIDASE ANTIBODY 30 U/ML (<60.0)
[2024-09-10 17:12] LABS: PROTEIN, TOTAL SO 6.4 g/dL (6.1-8.1)
[2024-09-12 07:13] LABS: ALBUMIN SO 3.9 g/dL (3.8-4.8); ALPHA 1 GLOBULINS SO 0.3 g/dL (0.2-0.3); ALPHA 2 GLOBULINS SO 0.7 g/dL (0.5-0.9); BETA 2 GLOBULIN SO 0.4 g/dL (0.2-0.5); BETA GLOBULIN SO 0.4 g/dL (0.4-0.6); GAMMA GLOBULINS SO 0.7 g/dL (0.8-1.7)
== END ==
LOC: M PLALAB 07:35
PROVIDERS: ATTEND Family Medicine
DX: E03.9 Hypothyroidism, unspecified (principal); E53.8 Deficiency of other specified B group vitamins; E55.9 Vitamin D deficiency, unspecified; E83.119 Hemochromatosis, unspecified; E78.01 Familial hypercholesterolemia

== ENCOUNTER 2024-10-15 12:15 | Outpatient (RCR) | payer OTHER | END 2024-10-30 | LOC: M PT 12:15 | PROVIDERS: ATTEND Physician Assistant Medical | DX: M70.61 Trochanteric bursitis, right hip (principal) ==

== ENCOUNTER → 2024-10-15 | Outpatient (CLI) | payer OTHER | LOC: M PLALAB 09:51 | PROVIDERS: ATTEND Physician Assistant Medical | DX: R97.8 Other abnormal tumor markers (principal); K76.0 Fatty (change of) liver, not elsewhere classified; R16.0 Hepatomegaly, not elsewhere classified ==

== ENCOUNTER 2024-10-29 11:07 | Outpatient (RCR) | payer OTHER | END 2024-10-30 | LOC: M PT 11:07 | PROVIDERS: ATTEND Physician Assistant Medical | DX: M47.816 Spondylosis without myelopathy or radiculopathy, lumbar region (principal) ==

== ENCOUNTER → 2024-10-29 | Outpatient (REF) | payer OTHER ==
[2024-10-29 21:31] LABS: APPEARANCE, URINE MANUAL HAZY (CLEAR); BILIRUBIN, URINE MANUAL NEGATIVE (NEGATIVE); BLOOD URINE MANUAL POSITIVE (NEGATIVE); COLOR, URINE MANUAL YELLOW (YELLOW); GLUCOSE, URINE (UA) MANUAL NEGATIVE (NEGATIVE); KETONE, URINE MANUAL NEGATIVE (NEGATIVE); LEUKOCYTE ESTERASE, URINE MAN POSITIVE (NEGATIVE); NITRITE, URINE MANUAL NEGATIVE (NEGATIVE); PH,URINE MAN 5.0 UNITS (5.0 - 7.0); PROTEIN, URINE MANUAL 1+ mg/dL (NEGATIVE); SPECIFIC GRAVITY,URINE MANUAL 1.026 (1.002-1.035); UROBILINOGEN, URINE MANUAL NORMAL (NORMAL)
[2024-10-29 21:34] LABS: WBC, URINE 30-40 /hpf (0-3)
[2024-10-29 21:35] LABS: SQUAMOUS EPITHELIAL CELL URINE NONE SEEN /hpf (SMALL AMT)
[2024-10-29 21:36] LABS: BACTERIA, URINE SMALL AMOUNT; HYALINE CAST, URINE NONE SEEN /lpf (0-1)
== END ==
LOC: M LAB REF 21:16
PROVIDERS: ATTEND Physician Assistant
DX: N39.0 Urinary tract infection, site not specified (principal)

== ENCOUNTER 2024-11-26 09:45 | Outpatient (RCR) | payer OTHER ==
[2024-12-04] MEDS ORDERED: PRED20TA PO (13:55)
== END 2024-11-30 ==
LOC: M PT 09:45
PROVIDERS: ATTEND Physician Assistant Medical
DX: M47.816 Spondylosis without myelopathy or radiculopathy, lumbar region (principal)

== ENCOUNTER → 2024-11-28 | Outpatient (CLI) | payer OTHER | LOC: M PLAIMG 09:23 | PROVIDERS: ATTEND Nurse Practitioner Family | DX: M47.817 Spondylosis without myelopathy or radiculopathy, lumbosacral region (principal); M53.3 Sacrococcygeal disorders, not elsewhere classified ==

== ENCOUNTER 2024-12-03 09:08 | Emergency (ER) | payer OTHER ==
[~2024-12-03] VITALS: Ht 175.3 cm; Wt 82.2 kg
[2024-12-03] MEDS: ACETAMINOPHEN 500 MG TAB PO ONE (13:58)
[2024-12-03] MEDS: LORazepam 0.5 MG TAB PO STA (14:14)
[2024-12-03] MEDS: LORazepam 0.5 MG TAB PO ONE (18:23)
[2024-12-03 20:18] VITALS: BP 160/81; TEMP 99.3; O2SAT 98
[2024-12-04] MEDS ORDERED: PRED20TA PO (13:55)
== END 2024-12-03 20:50 | disposition home or self-care (01) ==
LOC: M ED 09:43
DX: M54.50 Low back pain, unspecified (principal); C79.51 Secondary malignant neoplasm of bone; M85.88 Other specified disorders of bone density and structure, other site; C50.919 Malignant neoplasm of unspecified site of unspecified female breast; Z88.5 Allergy status to narcotic agent; Z85.3 Personal history of malignant neoplasm of breast; R92.8 Other abnormal and inconclusive findings on diagnostic imaging of breast; Z91.013 Allergy to seafood; Z79.1 Long term (current) use of non-steroidal anti-inflammatories (NSAID); Z79.2 Long term (current) use of antibiotics; Z79.52 Long term (current) use of systemic steroids; Z79.899 Other long term (current) drug therapy

== ENCOUNTER → 2024-12-03 | Outpatient (CLI) | payer OTHER | LOC: M WHC 07:23 | PROVIDERS: ATTEND Surgery | DX: R92.8 Other abnormal and inconclusive findings on diagnostic imaging of breast (principal); Z85.3 Personal history of malignant neoplasm of breast ==

== ENCOUNTER → 2024-12-04 | Outpatient (CLI) | payer OTHER ==
[2024-12-04 14:42] LABS: INR 0.98
[2024-12-04 15:16] LABS: ALT/SGPT 22.0 U/L (7.0-40); AST/SGOT 147.0 U/L (<34); CA15-3 ANTIGEN 167.9 U/ML (<32.4); CALCIUM LEVEL 11.3 MG/DL (8.3-10.6); CARBON DIOXIDE LEVEL 32.0 MMOL/L (20-31); CHLORIDE LEVEL 101.0 MMOL/L (98-107); CREATININE FOR GFR 0.79 MG/DL (0.55-1.30); GLOMERULAR FILTRATION RATE 85.6 (>45); POTASSIUM SERUM 4.2 MMOL/L (3.5-5.1); SODIUM LEVEL 144.0 MMOL/L (136-145)
== END ==
LOC: M ONCR 13:10
PROVIDERS: ATTEND General Practice
DX: C50.212 Malignant neoplasm of upper-inner quadrant of left female breast (principal); C79.51 Secondary malignant neoplasm of bone; Z17.0 Estrogen receptor positive status [ER+]; Z17.21 Progesterone receptor positive status; Z17.32 Human epidermal growth factor receptor 2 negative status; Z98.890 Other specified postprocedural states; Z79.02 Long term (current) use of antithrombotics/antiplatelets; Z79.899 Other long term (current) drug therapy; Z92.21 Personal history of antineoplastic chemotherapy; Z92.3 Personal history of irradiation; Z90.710 Acquired absence of both cervix and uterus; Z88.1 Allergy status to other antibiotic agents; Z88.2 Allergy status to sulfonamides; Z88.5 Allergy status to narcotic agent; Z91.013 Allergy to seafood; Z91.048 Other nonmedicinal substance allergy status

== ENCOUNTER 2024-12-08 08:58 | Outpatient (RCR) | payer OTHER ==
[2024-12-10] MEDS ORDERED: ATIV1TAB7 PO (13:17)
[2024-12-17] MEDS ORDERED: ANAS1TAB2 PO (11:27)
[2024-12-19] MEDS ORDERED: MORP1SOL5 PO (10:15)
[2024-12-27] MEDS ORDERED: PROM50TA4 PO (17:09)
== END 2024-12-30 ==
LOC: M PT 08:58
PROVIDERS: ATTEND Physician Assistant Medical
DX: M47.812 Spondylosis without myelopathy or radiculopathy, cervical region (principal)

== ENCOUNTER → 2024-12-16 | Outpatient (CLI) | payer OTHER ==
[~2024-12-16] MED LIST changes: +ANAS1TAB2 PO; +ATIV1TAB7 PO
== END ==
LOC: M PLARAD 14:59
PROVIDERS: ATTEND General Practice
DX: C50.212 Malignant neoplasm of upper-inner quadrant of left female breast (principal)
CPT/HCPCS: 78815; A9552

== ENCOUNTER 2024-12-25 09:29 | Outpatient (RCR) | payer OTHER ==
[~2024-12-25 09:29] MED LIST changes: +MORP1SOL5 PO
[2024-12-27] MEDS ORDERED: PROM50TA4 PO (17:09)
== END 2024-12-30 ==
LOC: M ONCR 09:29
PROVIDERS: ATTEND General Practice
DX: Z51.0 Encounter for antineoplastic radiation therapy (principal); C79.51 Secondary malignant neoplasm of bone

== ENCOUNTER 2024-12-27 13:05 | Emergency (ER) | payer OTHER ==
[~2024-12-27] VITALS: Ht 172.7 cm; Wt 83.0 kg
[2024-12-27] MEDS: NS (Normal Saline) 0.9% 1,000 ML IV ONE ×2 (13:44→17:14)
[2024-12-27] MEDS: PANTOPRAZOLE 40MG VIAL IV ONE (13:44)
[2024-12-27] MEDS: ACETAMINOPHEN *IV* 1,000 MG in IV 1 EA IV ONE (13:45)
[2024-12-27 13:49] LABS: PLATELET COUNT, AUTOMATED 16 10^3/uL (150-450)
[2024-12-27 14:00] LABS: ALT/SGPT 33 U/L (7.0-40); AST/SGOT 77 U/L (<34); CALCIUM LEVEL 9.4 MG/DL (8.3-10.6); CARBON DIOXIDE LEVEL 26 MMOL/L (20-31); CHLORIDE LEVEL 104 MMOL/L (98-107); CREATININE FOR GFR 0.54 MG/DL (0.55-1.30); GLOMERULAR FILTRATION RATE > 90.0 (>45); POTASSIUM SERUM 4.1 MMOL/L (3.5-5.1); SODIUM LEVEL 140 MMOL/L (136-145)
[2024-12-27] MEDS ORDERED: ISOVUE-370 76% 100 ML VIAL As Ordered ONE (14:13)
[2024-12-27 14:15] LABS: EOSINOPHILS 1 % (0-3); LYMPHOCYTES 30 % (16-44); METAMYELOCYTES 3 % (0-0); MONOCYTES 2 % (0-5); NEUTROPHILS 57 % (28-66); NUCLEATED RED BLOOD CELL 18 % (0-0); PLATELET ESTIMATE MARKED DECREASE (NORMAL)
[2024-12-27] MEDS: NS (Normal Saline) 0.9% 1,000 ML IV SCH (16:18)
[2024-12-27] MEDS ORDERED: PROM50TA4 PO (17:09)
[2024-12-27 18:16] VITALS: BP 126/71; TEMP 99; O2SAT 96
== END 2024-12-27 18:27 | disposition home or self-care (01) ==
LOC: EDBD 13:05 → M ED 13:05
DX: D69.6 Thrombocytopenia, unspecified (principal); R11.2 Nausea with vomiting, unspecified; E78.5 Hyperlipidemia, unspecified; E83.118 Other hemochromatosis; Z85.3 Personal history of malignant neoplasm of breast; Z88.2 Allergy status to sulfonamides; Z88.5 Allergy status to narcotic agent; Z91.013 Allergy to seafood; Z91.040 Latex allergy status; Z79.1 Long term (current) use of non-steroidal anti-inflammatories (NSAID); Z79.899 Other long term (current) drug therapy; Z79.52 Long term (current) use of systemic steroids
CPT/HCPCS: 36415; 70450; 74177; 80047; 80048; 80076; 83690; 85025; 85049; 85055; 93005; 93041; 96365; 96366; 96375; 99285; J0131; J2470; J2550; J2765; Q9967

== ENCOUNTER → 2024-12-30 | Outpatient (CLI) | payer OTHER ==
[~2024-12-30] MED LIST changes: +LIDO15SO8 PO; +NS (Normal Saline) 0.9% 1,000 ML IV SCH; +PROM50TA4 PO
[2024-12-30] MEDS: LIDOCAINE 1% MDV 20 ML VIAL SC SCH (12:40)
[2024-12-30 12:45] VITALS: TEMP 98.8
[2024-12-30 13:30] VITALS: BP 135/81; O2SAT 99
[2024-12-30 13:51] LABS: PLATELET COUNT, AUTOMATED 13 10^3/uL (150-450)
[2024-12-30 14:37] LABS: BASOPHILS 1 % (0-1); EOSINOPHILS 3 % (0-3); LYMPHOCYTES 18 % (16-44); METAMYELOCYTES 1 % (0-0); MONOCYTES 6 % (0-5); NEUTROPHILS 68 % (28-66)
[2024-12-30 14:39] LABS: PLATELET ESTIMATE DECREASED (NORMAL)
== END ==
LOC: M IRPRO 12:19
PROVIDERS: ATTEND General Practice
DX: C50.919 Malignant neoplasm of unspecified site of unspecified female breast (principal)

== ENCOUNTER → 2024-12-31 | Outpatient (CLI) | payer OTHER ==
[~2024-12-31] MED LIST changes: -NS (Normal Saline) 0.9% 1,000 ML IV SCH
== END ==
LOC: M ONCR 09:18
PROVIDERS: ATTEND General Practice
DX: D69.6 Thrombocytopenia, unspecified (principal); D64.9 Anemia, unspecified; Z79.811 Long term (current) use of aromatase inhibitors; Z92.3 Personal history of irradiation

== ENCOUNTER → 2025-01-13 | Outpatient (REF) | payer OTHER ==
[~2025-01-13] MED LIST changes: +OLAN1TAB16 PO; +VERZ100T PO
[2025-01-13 11:55] LABS: APPEARANCE, URINE HAZY (CLEAR); BACTERIA, URINE AUTO NEGATIVE (NEGATIVE); BILIRUBIN, URINE AUTO NEGATIVE (NEGATIVE); BLOOD, URINE BLOOD NEGATIVE (NEGATIVE); CALCIUM OXALATE CRYSTALS SMALL; GLUCOSE, URINE (UA) AUTO NEGATIVE (NEGATIVE); KETONE, URINE AUTO NEGATIVE (NEGATIVE); LEUKOCYTE ESTERASE, URINE AUTO NEGATIVE (NEGATIVE); MUCUS, URINE SMALL (NEGATIVE); NITRITE, URINE AUTO NEGATIVE (NEGATIVE); PROTEIN, URINE AUTO NEGATIVE (NEGATIVE); RBC, URINE AUTO 2 /HPF (0-3); SPECIFIC GRAVITY URINE AUTO 1.023 (1.002-1.035); SQUAMOUS EPITHELIAL CELL UR AU 1 /HPF (0-6); UROBILINOGEN, URINE AUTO 0.2 mg/dL (0.0-2.0); WBC, URINE AUTO 3 /HPF (0-3)
== END ==
LOC: M SFHCPLAZ 08:25
PROVIDERS: ATTEND Family Medicine
DX: R39.9 Unspecified symptoms and signs involving the genitourinary system (principal)

== ENCOUNTER → 2025-01-14 | Outpatient (CLI) | payer OTHER | LOC: M IRPRO 07:48 | PROVIDERS: ATTEND Student in an Organized Health Care Education/Training Program | DX: Z53.9 Procedure and treatment not carried out, unspecified reason (principal); C50.912 Malignant neoplasm of unspecified site of left female breast ==

== ENCOUNTER → 2025-01-15 | Outpatient (CLI) | payer OTHER ==
[~2025-01-15] VITALS: Ht 175.3 cm; Wt 80.1 kg
[2025-01-15 09:55] VITALS: TEMP 100.2
[2025-01-15] MEDS: NS (Normal Saline) 0.9% 1,000 ML IV SCH (11:07)
[2025-01-15] MEDS: ceFAZolin SODIUM 2 GM in DEXTROSE 5% (D5W) ADV/MINI-BAG 50 ML IV ONE (11:09)
[2025-01-15] MEDS: MIDAZOLAM INJ 2 MG/2 ML VIAL IV PRN (12:05)
[2025-01-15] MEDS: ONDANSETRON 4MG 2ML VIAL IV STA (12:08)
[2025-01-15] MEDS: LIDOCAINE 1% MDV 20 ML VIAL SC SCH (12:14)
[2025-01-15 13:00] VITALS: BP 123/66; O2SAT 95
== END ==
LOC: M IRPRO 09:35
PROVIDERS: ATTEND Student in an Organized Health Care Education/Training Program
DX: C50.912 Malignant neoplasm of unspecified site of left female breast (principal)

== ENCOUNTER 2025-01-25 13:55 | Emergency (ER) | payer OTHER ==
[2025-01-25 14:41] LABS: BASO # 0.0 10^3/uL (0.0-0.2); BASO % 0.7 % (0.0-1.0); EOS # 0.0 10^3/uL (0.0-0.5); EOS % 1.1 % (0.0-3.0); LYMPH # 0.3 10^3/uL (1.5-5.0); LYMPH % 12.1 % (24.0-44.0); MONO # 0.2 10^3/uL (0.0-0.8); MONO % 5.3 % (2.0-8.0); NEUTROPHILS # 2.2 10^3/uL (1.5-8.5); NEUTROPHILS % 79.7 % (36.0-66.0)
[2025-01-25 14:45] LABS: PLATELET COUNT, AUTOMATED 33 10^3/uL (150-450)
[2025-01-25 15:22] LABS: ALT/SGPT 30 U/L (7.0-40); AST/SGOT 44 U/L (<34); CALCIUM LEVEL 9.1 MG/DL (8.3-10.6); CARBON DIOXIDE LEVEL 28 MMOL/L (20-31); CHLORIDE LEVEL 105 MMOL/L (98-107); CREATININE FOR GFR 0.70 MG/DL (0.55-1.30); GLOMERULAR FILTRATION RATE > 90.0 (>45); POTASSIUM SERUM 3.9 MMOL/L (3.5-5.1); SODIUM LEVEL 143 MMOL/L (136-145)
[2025-01-25] MEDS ORDERED: CETI-24 PO (16:19)
[2025-01-25] MEDS ORDERED: VERZ100T PO (16:19)
[2025-01-25] MEDS ORDERED: PROC10TA5 PO (16:19)
[2025-01-25] MEDS ORDERED: HOME MED LIST COMPLETE! XX SCH (16:20)
[2025-01-25 17:36] LABS: KETONE, URINE AUTO RFX NEGATIVE (NEGATIVE); LEUKOCYTE ESTERASE UR AUTO RFX NEGATIVE (NEGATIVE); MUCUS, URINE RFX SMALL (NEGATIVE); NITRITE, URINE AUTO RFX NEGATIVE (NEGATIVE); RBC, URINE AUTO RFX 26 /HPF (0-3); SQUAM EPITHELIAL CELL UR AURFX 2 /HPF (0-6); WBC, URINE AUTO RFX 3 /HPF (0-3)
[2025-01-25 17:56] LABS: C REACTIVE PROTEIN QUANTITATIV < 0.50 MG/DL (<1.0)
[2025-01-25 18:14] VITALS: BP 116/56; TEMP 97.9; O2SAT 97
[2025-01-25 19:00] VITALS: BP 109/60; TEMP 98.4; O2SAT 93
[2025-01-25 20:00] VITALS: BP 123/70; TEMP 98.3; O2SAT 97
[2025-01-25 21:00] VITALS: BP 136/81; TEMP 98.3; O2SAT 97
[2025-01-25] MEDS: SODIUM CHLORIDE 0.9% INJ 10 ML SYR IV PRN (21:27)
== END 2025-01-25 21:54 | disposition home or self-care (01) ==
LOC: M ED 13:55
DX: D61.810 Antineoplastic chemotherapy induced pancytopenia (principal); D69.6 Thrombocytopenia, unspecified; E78.5 Hyperlipidemia, unspecified; C79.51 Secondary malignant neoplasm of bone; C50.919 Malignant neoplasm of unspecified site of unspecified female breast; Z88.2 Allergy status to sulfonamides; Z88.5 Allergy status to narcotic agent; Z91.013 Allergy to seafood; Z79.899 Other long term (current) drug therapy
CPT/HCPCS: 36415; 36430; 80048; 80076; 81001; 84145; 85025; 85049; 85055; 86140; 86850; 86900; 86901; 86920; 87040; 87486; 87581; 87633; 87798; 99285; P9016

== ENCOUNTER 2025-01-31 06:38 | Emergency (ER) | payer OTHER ==
[~2025-01-31] VITALS: Ht 172.7 cm; Wt 77.5 kg
[~2025-01-31 06:38] MED LIST changes: +CETI-24 PO
[2025-01-31] MEDS ORDERED: ISOVUE-370 76% 100 ML VIAL As Ordered ONE (07:19)
[2025-01-31 07:41] LABS: PLATELET COUNT, AUTOMATED 24 10^3/uL (150-450)
[2025-01-31 07:56] LABS: INR 1.08
[2025-01-31] MEDS: NS (Normal Saline) 0.9% 1,000 ML IV ONE (07:58)
[2025-01-31 08:02] LABS: LYMPHOCYTES 30 % (16-44); MONOCYTES 3 % (0-5); NEUTROPHILS 67 % (28-66)
[2025-01-31 08:04] LABS: PLATELET ESTIMATE MARKED DECREASE (NORMAL)
[2025-01-31 08:23] LABS: ALT/SGPT 25 U/L (7.0-40); AST/SGOT 39 U/L (<34); CALCIUM LEVEL 9.0 MG/DL (8.3-10.6); CARBON DIOXIDE LEVEL 28 MMOL/L (20-31); CHLORIDE LEVEL 105 MMOL/L (98-107); CREATININE FOR GFR 0.75 MG/DL (0.55-1.30); GLOMERULAR FILTRATION RATE > 90.0 (>45); MAGNESIUM LEVEL 2.0 MG/DL (1.8-2.4); POTASSIUM SERUM 3.5 MMOL/L (3.5-5.1); SODIUM LEVEL 143 MMOL/L (136-145)
[2025-01-31] MEDS: ONDANSETRON 4MG/2ML VIAL IV ONE (08:50)
[2025-01-31] MEDS: ACETAMINOPHEN 500 MG TAB PO ONE (10:20)
[2025-01-31] MEDS ORDERED: PROHANCE 279.3MG/ML 15ML VIAL As Ordered ONE (11:09)
[2025-01-31 13:10] VITALS: BP 105/64; O2SAT 100
[2025-01-31 13:15] VITALS: TEMP 97.2
[2025-02-01] MEDS ORDERED: METH-1164 PO (07:23)
[2025-02-01] MEDS ORDERED: MORP1SOL5 PO (07:23)
[2025-02-01] MEDS ORDERED: ACET-907 PO (07:23)
[2025-02-01] MEDS ORDERED: IBUP200T46 PO (07:23)
[2025-02-01] MEDS ORDERED: ONDA-282 PO (07:23)
== END 2025-01-31 13:16 | disposition home or self-care (01) ==
LOC: M ED 06:38
DX: R20.2 Paresthesia of skin (principal); D61.810 Antineoplastic chemotherapy induced pancytopenia; C50.919 Malignant neoplasm of unspecified site of unspecified female breast; C79.51 Secondary malignant neoplasm of bone; E78.5 Hyperlipidemia, unspecified; Z88.2 Allergy status to sulfonamides; Z88.5 Allergy status to narcotic agent; Z91.013 Allergy to seafood; Z79.1 Long term (current) use of non-steroidal anti-inflammatories (NSAID); Z79.899 Other long term (current) drug therapy

== ENCOUNTER 2025-02-01 07:11 | Inpatient (IN) | payer OTHER ==
[~2025-02-01] VITALS: Ht 172.7 cm; Wt 71.5 kg
[2025-02-01] MEDS ORDERED: ACET-907 PO (07:23)
[2025-02-01] MEDS ORDERED: METH-1164 PO (07:23)
[2025-02-01] MEDS ORDERED: ONDA-282 PO (07:23)
[2025-02-01] MEDS ORDERED: MORP1SOL5 PO (07:23)
[2025-02-01] MEDS ORDERED: IBUP200T46 PO (07:23)
[2025-02-01] MEDS: LIDOCAINE 5% PATCH TD ONE (08:55)
[2025-02-01] MEDS: CYCLOBENZAPRINE 10 MG TABLET PO ONE (08:55)
[2025-02-01] MEDS: MORPHINE 4 MG/ML 1 ML VIAL IV ONE (08:56)
[2025-02-01] MEDS: ONDANSETRON 4MG/2ML VIAL IV ONE ×2 (08:56→14:57)
[2025-02-01 09:07] LABS: PLATELET COUNT, AUTOMATED 21 10^3/uL (150-450)
[2025-02-01 09:37] LABS: EOSINOPHILS 1 % (0-3); LYMPHOCYTES 11 % (16-44); MONOCYTES 3 % (0-5); NEUTROPHILS 83 % (28-66)
[2025-02-01 09:38] LABS: PLATELET ESTIMATE MARKED DECREASE (NORMAL)
[2025-02-01 09:44] LABS: ALT/SGPT 21 U/L (7.0-40); AST/SGOT 33 U/L (<34); CALCIUM LEVEL 8.9 MG/DL (8.3-10.6); CARBON DIOXIDE LEVEL 26 MMOL/L (20-31); CHLORIDE LEVEL 108 MMOL/L (98-107); CREATININE FOR GFR 0.64 MG/DL (0.55-1.30); GLOMERULAR FILTRATION RATE > 90.0 (>45); POTASSIUM SERUM 3.8 MMOL/L (3.5-5.1); SODIUM LEVEL 144 MMOL/L (136-145)
[2025-02-01] MEDS ORDERED: HOME MED LIST COMPLETE! XX SCH (12:10)
[2025-02-01] MEDS: MORPHINE 2 MG/ML 1 ML VIAL IV ONE (13:20)
[2025-02-01] MEDS ORDERED: MORPHINE 2 MG/ML 1 ML VIAL IV PRN ×2 (15:35)
[2025-02-01] MEDS ORDERED: IBUPROFEN 400 MG TAB PO PRN (15:35)
[2025-02-01] MEDS ORDERED: LIDOCAINE/PRILOCAINE CREAM 5 GM TUBE TOP SCH (15:35)
[2025-02-01] MEDS ORDERED: LIDOCAINE VISCOUS 2% SOLN 15 ML UDC PO PRN (15:35)
[2025-02-01 16:20] VITALS: BP 148/83; TEMP 98.8; O2SAT 91
[2025-02-01] MEDS: ACETAMINOPHEN 500 MG TAB PO PRN (16:46)
[2025-02-01] MEDS: PROCHLORPERAZINE 5MG TAB PO PRN (19:07)
[2025-02-01] MEDS: MORPHINE 4 MG/ML 1 ML VIAL IV PRN (19:09)
[2025-02-01 20:00] VITALS: BP 107/60; TEMP 98.2; O2SAT 90
[2025-02-02] VITALS (11 sets, daily range): BP systolic 99–152; BP diastolic 58–92; TEMP 97.9–98.2; O2SAT 90–97
[2025-02-02] MEDS: MORPHINE 4 MG/ML 1 ML VIAL IV PRN (04:31)
[2025-02-02 06:23] LABS: PLATELET COUNT, AUTOMATED 18 10^3/uL (150-450)
[2025-02-02] MEDS ORDERED: ENTER DRUG NAME HERE (PATIENT'S OWN MED) IM SCH (07:05)
[2025-02-02 08:17] LABS: BASO # 0.0 10^3/uL (0.0-0.2); BASO % 0.0 % (0.0-1.0); EOS # 0.0 10^3/uL (0.0-0.5); EOS % 1.1 % (0.0-3.0); LYMPH # 0.3 10^3/uL (1.5-5.0); LYMPH % 15.1 % (24.0-44.0); MONO # 0.1 10^3/uL (0.0-0.8); MONO % 3.9 % (2.0-8.0); NEUTROPHILS # 1.4 10^3/uL (1.5-8.5); NEUTROPHILS % 78.2 % (36.0-66.0)
[2025-02-02 08:21] LABS: PLATELET COUNT, AUTOMATED 20 10^3/uL (150-450)
[2025-02-02] MEDS: CETIRIZINE 10 MG TAB PO SCH (09:02)
[2025-02-02] MEDS: CALCIUM/VITAMIN D 500 MG TAB PO SCH (09:02)
[2025-02-02] MEDS: VITAMIN D (CHOLECALCIFEROL) 400 INTERNATIONAL UNITS TAB PO SCH (09:02)
[2025-02-02] MEDS: ZOLEDRONIC ACID 4 MG in IV 1 EA IV ONE (11:01)
[2025-02-02] MEDS ORDERED: LORazepam 0.5 MG TAB PO PRN (11:35)
[2025-02-02] MEDS: MORPHINE 10 MG/0.5 ML ORAL CONCENTRATE SOLUTION U/D SL PRN (12:15)
[2025-02-02] MEDS: PROCHLORPERAZINE 5MG TAB PO SCH (13:01)
[2025-02-02] MEDS: ACETAMINOPHEN 325 MG TAB PO SCH (13:02)
[2025-02-02] MEDS: FULVESTRANT 250 MG/5 ML SYRINGE IM ONE (14:55)
[2025-02-02 20:26] LABS: PLATELET COUNT, AUTOMATED 17 10^3/uL (150-450)
[2025-02-03 03:16] VITALS: BP 148/99; TEMP 97.3; O2SAT 96
[2025-02-03 06:30] LABS: PLATELET COUNT, AUTOMATED 16 10^3/uL (150-450)
[2025-02-03 06:48] LABS: CALCIUM LEVEL 8.0 MG/DL (8.3-10.6); CARBON DIOXIDE LEVEL 29 MMOL/L (20-31); CHLORIDE LEVEL 105 MMOL/L (98-107); CREATININE FOR GFR 0.57 MG/DL (0.55-1.30); GLOMERULAR FILTRATION RATE > 90.0 (>45); POTASSIUM SERUM 3.4 MMOL/L (3.5-5.1); SODIUM LEVEL 141 MMOL/L (136-145)
[2025-02-03 08:00] VITALS: BP_SYST 120; BP_DIAS 5; BP_DIAS 75; TEMP 97.9; O2SAT 93
[2025-02-03] MEDS: LIDOCAINE 5% PATCH TD SCH (09:09)
[2025-02-03] MEDS: POTASSIUM CHLORIDE 10MEQ SR TABLET PO ONE (11:28)
[2025-02-03] MEDS: oxyCODONE 10 MG CR TAB PO SCH (11:29)
[2025-02-03 12:00] VITALS: BP 137/93; TEMP 98.1; O2SAT 94
[2025-02-03 12:40] LABS: MAGNESIUM LEVEL 1.8 MG/DL (1.8-2.4)
[2025-02-03] MEDS ORDERED: SODIUM CHLORIDE 0.9% INJ 10 ML SYR IV PRN (14:45)
[2025-02-03] MEDS: SODIUM CHLORIDE 0.9% INJ 10 ML SYR IV SCH (15:00)
[2025-02-03] MEDS: LORazepam 0.5 MG TAB PO PRN (15:01)
[2025-02-03 16:47] VITALS: BP 158/92; TEMP 98.3; O2SAT 92
[2025-02-03 20:20] VITALS: BP 138/76; TEMP 98.3; O2SAT 93
[2025-02-03 23:36] VITALS: BP 116/68; TEMP 98; O2SAT 95
[2025-02-04] VITALS (9 sets, daily range): BP systolic 106–140; BP diastolic 62–79; TEMP 97.7–98.3; O2SAT 89–98
[2025-02-04 06:26] LABS: PLATELET COUNT, AUTOMATED 15 10^3/uL (150-450)
[2025-02-04 07:16] LABS: CALCIUM LEVEL 7.7 MG/DL (8.3-10.6); CARBON DIOXIDE LEVEL 28 MMOL/L (20-31); CHLORIDE LEVEL 106 MMOL/L (98-107); CREATININE FOR GFR 0.52 MG/DL (0.55-1.30); GLOMERULAR FILTRATION RATE > 90.0 (>45); POTASSIUM SERUM 3.7 MMOL/L (3.5-5.1); SODIUM LEVEL 143 MMOL/L (136-145)
[2025-02-04] MEDS: MORPHINE 10 MG/0.5 ML ORAL CONCENTRATE SOLUTION U/D SL PRN (09:18)
[2025-02-04] MEDS: MIRALAX *UNIT DOSE* 17 GM PACKET PO SCH (09:18)
[2025-02-04] MEDS: ONDANSETRON 4MG ORAL DISINTEGRATING TAB SL PRN (10:51)
[2025-02-04 10:52] LABS: BASO # 0.0 10^3/uL (0.0-0.2); BASO % 0.8 % (0.0-1.0); EOS # 0.0 10^3/uL (0.0-0.5); EOS % 1.7 % (0.0-3.0); LYMPH # 0.2 10^3/uL (1.5-5.0); LYMPH % 16.9 % (24.0-44.0); MONO # 0.1 10^3/uL (0.0-0.8); MONO % 6.8 % (2.0-8.0); NEUTROPHILS # 0.9 10^3/uL (1.5-8.5); NEUTROPHILS % 73.0 % (36.0-66.0)
[2025-02-04] MEDS ORDERED: diphenhydrAMINE 50 MG/ML VIAL As Ordered ONE (12:40)
[2025-02-04] MEDS: diphenhydrAMINE 50 MG/ML VIAL IV STA (12:49)
[2025-02-04] MEDS: FAMOTIDINE 20 MG/2 ML VIAL IVP ONE (12:51)
[2025-02-04] MEDS ORDERED: MORPHINE 10 MG/0.5 ML ORAL CONCENTRATE SOLUTION U/D SL PRN (14:35)
[2025-02-04] MEDS: BETAMETHASONE DIP 0.05% OINT 15 GM TOP SCH (18:37)
[2025-02-04 18:55] LABS: PLATELET COUNT, AUTOMATED 49 10^3/uL (150-450)
[2025-02-04] MEDS: oxyCODONE 15MG CR TAB PO SCH (21:09)
[2025-02-05 03:35] VITALS: BP 144/81; TEMP 98; O2SAT 94
[2025-02-05 06:11] LABS: PLATELET COUNT, AUTOMATED 29 10^3/uL (150-450)
[2025-02-05 08:25] VITALS: BP 128/71; TEMP 96.3; O2SAT 97
[2025-02-05 13:00] VITALS: BP 114/60; TEMP 97; O2SAT 94
[2025-02-05 16:00] VITALS: BP 125/65; TEMP 98.2; O2SAT 94
[2025-02-05 21:05] VITALS: BP 113/58; TEMP 98.1; O2SAT 94
[2025-02-05 23:40] VITALS: BP 118/70; TEMP 98.3; O2SAT 93
[2025-02-06] VITALS (10 sets, daily range): BP systolic 107–144; BP diastolic 60–83; TEMP 97.1–98.8; O2SAT 89–95
[2025-02-06] MEDS: diphenhydrAMINE 50 MG/ML VIAL IV STA (03:53)
[2025-02-06 07:28] LABS: PLATELET COUNT, AUTOMATED 22 10^3/uL (150-450)
[2025-02-06] MEDS: SENNA 8.6 MG TAB PO PRN (08:23)
[2025-02-06 08:48] LABS: CALCIUM LEVEL 7.1 MG/DL (8.3-10.6); CARBON DIOXIDE LEVEL 29 MMOL/L (20-31); CHLORIDE LEVEL 107 MMOL/L (98-107); CREATININE FOR GFR 0.56 MG/DL (0.55-1.30); GLOMERULAR FILTRATION RATE > 90.0 (>45); POTASSIUM SERUM 3.3 MMOL/L (3.5-5.1); SODIUM LEVEL 145 MMOL/L (136-145)
[2025-02-06] MEDS: PANTOPRAZOLE 40MG VIAL IV SCH (09:40)
[2025-02-06 15:16] LABS: PLATELET COUNT, AUTOMATED 52 10^3/uL (150-450)
[2025-02-06] MEDS: LORazepam 0.5 MG TAB PO PRN (15:21)
[2025-02-06] MEDS: SENNA 8.6 MG TAB PO SCH (21:25)
[2025-02-07 00:06] VITALS: O2SAT 92
[2025-02-07 04:05] VITALS: BP 133/65; TEMP 98; O2SAT 93
[2025-02-07 06:33] LABS: PLATELET COUNT, AUTOMATED 41 10^3/uL (150-450)
[2025-02-07 07:00] LABS: CALCIUM LEVEL 7.1 MG/DL (8.3-10.6); CARBON DIOXIDE LEVEL 28 MMOL/L (20-31); CHLORIDE LEVEL 106 MMOL/L (98-107); CREATININE FOR GFR 0.53 MG/DL (0.55-1.30); GLOMERULAR FILTRATION RATE > 90.0 (>45); POTASSIUM SERUM 4.1 MMOL/L (3.5-5.1); SODIUM LEVEL 145 MMOL/L (136-145)
[2025-02-07 08:00] VITALS: BP 125/75; TEMP 98.3; O2SAT 95
[2025-02-07 11:55] VITALS: BP 135/84; TEMP 97.9; O2SAT 93
[2025-02-07 15:50] VITALS: BP 143/84; TEMP 98.7; O2SAT 94
[2025-02-07 20:10] VITALS: BP 141/93; TEMP 98.3; O2SAT 96
[2025-02-08 00:34] VITALS: BP 135/72; TEMP 98; O2SAT 98
[2025-02-08 05:30] VITALS: BP 137/96; TEMP 97.4; O2SAT 97
[2025-02-08 06:18] LABS: PLATELET COUNT, AUTOMATED 41 10^3/uL (150-450)
[2025-02-08 06:48] LABS: CALCIUM LEVEL 7.4 MG/DL (8.3-10.6); CARBON DIOXIDE LEVEL 26 MMOL/L (20-31); CHLORIDE LEVEL 107 MMOL/L (98-107); CREATININE FOR GFR 0.55 MG/DL (0.55-1.30); GLOMERULAR FILTRATION RATE > 90.0 (>45); POTASSIUM SERUM 4.0 MMOL/L (3.5-5.1); SODIUM LEVEL 144 MMOL/L (136-145)
[2025-02-08 12:00] VITALS: BP 139/72; TEMP 98.4; O2SAT 95
[2025-02-08 16:00] VITALS: BP 133/75; TEMP 98.6; O2SAT 95
[2025-02-08 21:13] VITALS: BP 144/78; TEMP 98.1; O2SAT 96
[2025-02-09 00:14] VITALS: BP 137/79; TEMP 97.6; O2SAT 97
[2025-02-09 04:31] VITALS: BP 139/82; TEMP 97.3; O2SAT 94
[2025-02-09 08:00] VITALS: BP 152/84; TEMP 97.2; O2SAT 95
[2025-02-09] MEDS: predniSONE 20 MG TAB PO SCH (09:16)
[2025-02-09] MEDS: PANTOPRAZOLE 40MG TAB PO SCH (09:17)
[2025-02-09] MEDS: oxyCODONE 15MG CR TAB PO ONE (10:42)
[2025-02-09 11:28] VITALS: BP 136/63; TEMP 98.1; O2SAT 94
[2025-02-09 15:39] VITALS: BP 151/84; TEMP 97.5; O2SAT 94
[2025-02-09 20:00] VITALS: BP 128/78; TEMP 97; O2SAT 96
[2025-02-09] MEDS: oxyCODONE 15MG CR TAB PO SCH (20:19)
[2025-02-10] VITALS (7 sets, daily range): BP systolic 122–142; BP diastolic 69–82; TEMP 97.3–98.6; O2SAT 86–98
[2025-02-10] MEDS ORDERED: PILL CUTTER 1 EACH XX PRN (04:15)
[2025-02-10] MEDS ORDERED: METHADONE 5 MG TAB PO STA (04:29)
[2025-02-10] MEDS: METHADONE 10 MG TAB PO STA (04:39)
[2025-02-10] MEDS: oxyCODONE 15MG CR TAB PO SCH (08:21)
[2025-02-10 08:56] LABS: BASO # 0.0 10^3/uL (0.0-0.2); BASO % 0.4 % (0.0-1.0); EOS # 0.0 10^3/uL (0.0-0.5); EOS % 0.4 % (0.0-3.0); LYMPH # 0.5 10^3/uL (1.5-5.0); LYMPH % 17.5 % (24.0-44.0); MONO # 0.2 10^3/uL (0.0-0.8); MONO % 8.2 % (2.0-8.0); NEUTROPHILS # 1.9 10^3/uL (1.5-8.5); NEUTROPHILS % 72.4 % (36.0-66.0)
[2025-02-10] MEDS ORDERED: METHADONE 5 MG TAB PO SCH (09:00)
[2025-02-10] MEDS ORDERED: METHADONE 10 MG TAB PO SCH (09:00)
[2025-02-10 09:03] LABS: PLATELET COUNT, AUTOMATED 28 10^3/uL (150-450)
[2025-02-10 09:24] LABS: CALCIUM LEVEL 7.7 MG/DL (8.3-10.6); CARBON DIOXIDE LEVEL 27 MMOL/L (20-31); CHLORIDE LEVEL 105 MMOL/L (98-107); CREATININE FOR GFR 0.62 MG/DL (0.55-1.30); GLOMERULAR FILTRATION RATE > 90.0 (>45); POTASSIUM SERUM 3.5 MMOL/L (3.5-5.1); SODIUM LEVEL 142 MMOL/L (136-145)
[2025-02-11] VITALS (7 sets, daily range): BP systolic 126–143; BP diastolic 69–81; TEMP 98–98.9; O2SAT 92–96
[2025-02-11] MEDS ORDERED: VITAD400CA PO (12:51)
[2025-02-11] MEDS ORDERED: CALCD50TA PO (12:51)
[2025-02-11] MEDS ORDERED: OXYC-517 PO (12:51)
[2025-02-11] MEDS ORDERED: BETA5OI TOP (12:51)
[2025-02-11] MEDS ORDERED: LIDO5TD TD (12:51)
[2025-02-11] MEDS ORDERED: OXYC20TA40 PO (12:51)
[2025-02-11] MEDS ORDERED: DULO1CAP5 PO (12:51)
[2025-02-11] MEDS ORDERED: VERZ150T PO (15:28)
[2025-02-11] MEDS: oxyCODONE 20MG CR TAB PO SCH (21:08)
[2025-02-12 04:00] VITALS: BP 130/75; TEMP 98.7; O2SAT 92
[2025-02-12] MEDS: oxyCODONE 20MG CR TAB PO SCH (07:54)
[2025-02-12] MEDS: oxyCODONE 10 MG CR TAB PO SCH (07:55)
[2025-02-12 08:00] VITALS: BP 121/70; TEMP 97.5; O2SAT 95
[2025-02-12 12:00] VITALS: BP 133/73; TEMP 98.1; O2SAT 95
[2025-02-12 16:40] VITALS: BP 142/74; TEMP 97.9; O2SAT 99
[2025-02-12 20:18] VITALS: BP 130/73; TEMP 98.3; O2SAT 93
[2025-02-12] MEDS: GABAPENTIN 100 MG CAP PO SCH (21:02)
[2025-02-13 00:02] VITALS: BP 124/81; TEMP 98.2; O2SAT 91
[2025-02-13 03:43] VITALS: BP 110/78; TEMP 97.8; O2SAT 95
[2025-02-13 08:15] VITALS: BP 130/73; TEMP 98.1; O2SAT 96
[2025-02-13 08:21] LABS: BASO # 0.0 10^3/uL (0.0-0.2); BASO % 0.3 % (0.0-1.0); EOS # 0.0 10^3/uL (0.0-0.5); EOS % 0.0 % (0.0-3.0); LYMPH # 0.3 10^3/uL (1.5-5.0); LYMPH % 11.1 % (24.0-44.0); MONO # 0.2 10^3/uL (0.0-0.8); MONO % 7.8 % (2.0-8.0); NEUTROPHILS # 2.4 10^3/uL (1.5-8.5); NEUTROPHILS % 79.4 % (36.0-66.0)
[2025-02-13 08:29] LABS: PLATELET COUNT, AUTOMATED 27 10^3/uL (150-450)
[2025-02-13] MEDS ORDERED: ATROPINE SULFATE 1% OPHTH SOLN 2 ML BTL SL PRN (11:55)
[2025-02-13] MEDS ORDERED: POLYVINYL ALCOHOL OPHTH SOLN 15ML (LIQUITEARS) OU PRN (11:55)
[2025-02-13] MEDS ORDERED: HYOSCYAMINE SULFATE 0.125 MG SUBL TABLET SL PRN (11:55)
[2025-02-13] MEDS ORDERED: SALIVA SUBSTITUTE BTL MT PRN (11:55)
[2025-02-13] MEDS ORDERED: ONDANSETRON 4MG ORAL DISINTEGRATING TAB SL PRN (12:05)
[2025-02-15] MEDS: predniSONE 10 MG TAB PO SCH (08:35)
[2025-02-17] MEDS: LORazepam 1 MG TAB PO PRN (21:34)
[2025-02-18] MEDS ORDERED: HYOS125TA PO (10:20)
[2025-02-18] MEDS ORDERED: ATIV1TAB10 PO (10:20)
[2025-02-18] MEDS ORDERED: OXYC60TA8 PO (10:20)
[2025-02-18] MEDS ORDERED: OXYC-1 PO (10:20)
[2025-02-18] MEDS ORDERED: MORP1SOL5 PO (10:20)
[2025-02-18] MEDS ORDERED: GABA-1172 PO (11:03)
== END 2025-02-18 11:08 | disposition hospice, home (50) | DRG 343 ==
LOC: M ED 07:11 → M MSPAV 15:29
PROVIDERS: ADMIT Student in an Organized Health Care Education/Training Program; ATTEND Internal Medicine
DX: M84.58XA Pathological fracture in neoplastic disease, other specified site, initial encounter for fracture (principal); D61.811 Other drug-induced pancytopenia; D61.818 Other pancytopenia; C79.51 Secondary malignant neoplasm of bone; C50.912 Malignant neoplasm of unspecified site of left female breast; K76.0 Fatty (change of) liver, not elsewhere classified; E78.5 Hyperlipidemia, unspecified; G89.3 Neoplasm related pain (acute) (chronic); M79.2 Neuralgia and neuritis, unspecified; R11.0 Nausea; R20.2 Paresthesia of skin; E83.110 Hereditary hemochromatosis; Z17.0 Estrogen receptor positive status [ER+]; M50.30 Other cervical disc degeneration, unspecified cervical region; R22.0 Localized swelling, mass and lump, head; Z92.3 Personal history of irradiation; Z51.5 Encounter for palliative care; Z66 Do not resuscitate; Z79.899 Other long term (current) drug therapy; Z88.2 Allergy status to sulfonamides; Z88.5 Allergy status to narcotic agent; Z88.8 Allergy status to other drugs, medicaments and biological substances; Z91.013 Allergy to seafood; Z91.048 Other nonmedicinal substance allergy status

== ENCOUNTER 2025-02-11 15:58 | Outpatient (RCR) | payer OTHER ==
[~2025-02-11 15:58] MED LIST changes: +ACET-907 PO; +BETA5OI TOP; +CALCD50TA PO; +DULO1CAP5 PO; +IBUP200T46 PO; +LIDO5TD TD; +METH-1164 PO; +ONDA-282 PO; +OXYC-517 PO; +OXYC20TA40 PO; +VERZ150T PO; +VITAD400CA PO
[2025-02-18] MEDS ORDERED: HYOS125TA PO (10:20)
[2025-02-18] MEDS ORDERED: MORP1SOL5 PO (10:20)
[2025-02-18] MEDS ORDERED: OXYC60TA8 PO (10:20)
[2025-02-18] MEDS ORDERED: ATIV1TAB10 PO (10:20)
[2025-02-18] MEDS ORDERED: OXYC-1 PO (10:20)
[2025-02-18] MEDS ORDERED: GABA-1172 PO (11:03)
== END 2025-03-01 ==
LOC: M ONCR 15:58
PROVIDERS: ATTEND General Practice
DX: Z51.0 Encounter for antineoplastic radiation therapy (principal); C79.51 Secondary malignant neoplasm of bone